=== PATIENT | male | born 1970 | race Caucasian/White ===

== ENCOUNTER 2020-10-15 10:22 | Outpatient (CLI) | payer OTHER, SELFPAY ==
--- NOTE | 2020-10-15 09:45 | DI.RAD_ITS ---
EXAM: XR STANDING ALIGNMENT and XR knee right and left 1 V CLINICAL HISTORY: pre-op. TECHNIQUE: 2D digital imaging was performed. COMPARISON: CR,DX XR KNEE 3V RT from 04/27/2019 CR XR KNEE LT 1V from 10/15/2020 CR XR KNEE LT 1V from 10/15/2020 CR XR KNEE RT 1V from 10/15/2020 FINDINGS: Mild degenerative changes are seen in the hips. In the right knee, marked degenerative changes are present characterized by joint space narrowing and periarticular spurring. The findings are most marked in the medial femoral tibial joint. There is a joint effusion. In the left knee, marked degenerative changes are present. Their care dries by joint space narrowing and periarticular spurring. The findings are most marked in the medial femoral tibial and patellofe moral joints. Orthopedic screws are seen in the distal femur and proximal tibia. There is a small j oint effusion. The ankles are well maintained. No significant leg length discrepancy is noted. IMPRESSION: Marked degenerative changes of the knees bilaterally. DATA REPOSITORY: RADIATION DOSE DELIVERED:
== END 2020-10-15 10:42 ==
PROVIDERS: Visit Provider Physician Assistant Surgical
DX: M17.0 Bilateral primary osteoarthritis of knee (principal)
CPT/HCPCS: 73560; 77073

== ENCOUNTER 2020-11-09 01:27 | Outpatient (CLI) | payer OTHER, SELFPAY ==
[2020-11-09 11:32] LABS: BUN 19 mg/dL (7-18); Calcium 9.4 mg/dL (8.5-10.1); Chloride 103 mmol/L (98-107); Glucose 107 mg/dL (74-106); Potassium 3.8 mmol/L (3.5-5.1); Sodium 139 mmol/L (136-145)
[2020-11-09 11:36] LABS: HCT 45.1 % (40.0-50.0); HGB 15.2 g/dL (13.5-17.5); MCH 29.1 pg (27.0-33.0); MCHC 33.7 % (32.0-36.0); MCV 86.2 fL (80-95); MPV 9.6 fL (8.0-11.0); Platelet Count 316 10^3/uL (130-400); RBC 5.23 10^6/uL (4.36-5.78); RDW 12.8 % (11.8-14.1); RDW-SD 40.4 fL; WBC 9.91 10^3/uL (4.4-10.8)
[2020-11-10 17:09] LABS: COVID-19 RT-PCR UVMMC Result Negative (Negative)
== END 2020-11-09 01:28 | disposition home or self-care (01) ==
LOC: LBO 01:27
PROVIDERS: PCP Nurse Practitioner Family; Visit Provider Student in an Organized Health Care Education/Training Program
DX: M25.562 Pain in left knee (principal); M17.32 Unilateral post-traumatic osteoarthritis, left knee; Z20.828 Contact with and (suspected) exposure to other viral communicable diseases; Z01.818 Encounter for other preprocedural examination; Z01.812 Encounter for preprocedural laboratory examination
CPT/HCPCS: 36415; 80048; 85027; U0003

== ENCOUNTER 2020-11-14 06:05 | Day surgery (SDC) | payer OTHER, SELFPAY ==
[2020-11-14] VITALS (8 sets, daily range): BP systolic 98–133; BP diastolic 39–83; PULSE 58–65; RESP 12–16; TEMP 36–36.8; O2SAT 93–99
[2020-11-14] MEDS: Lactated Ringers 1,000 ML 80 ML IV (06:49)
[2020-11-14] MEDS: Gabapentin 300 MG CAP PO (07:21)
[2020-11-14] MEDS: Acetaminophen 500 MG TAB 1000 MG PO (07:21)
[2020-11-14] MEDS: Celecoxib 200 MG CAP 400 MG PO (07:21)
--- NOTE | 2020-11-14 07:22 | DSE_ITS ---
Documented by User: Guera Rosadoxon 11/14/20 07:24 DS: Diagnosis Discharge Diagnosis (1) Post-traumatic osteoarthritis of left knee: Status: Chronic Discharge Plan Disposition Patient Disposition: HOME Condition: Good Discharge Details Reason For Visit: Left knee DJD Attending Provider: Mikel Garcia Primary Care Provider: Lea Orosco Home Meds and New Rx's Prescriptions: Continued amlodipine 10 mg tablet 10 mg PO DAILY RF: 0 losartan 100 mg tablet 100 mg PO DAILY RF: 0 metoprolol succinate 25 mg tablet extended release 24 hr 50 mg PO DAILY RF: 0 Flovent HFA 110 mcg/actuation HFA aerosol inhaler 1 puff inhalation BID RF: 0 albuterol sulfate [ProAir HFA] 90 mcg/actuation HFA aerosol inhaler 2 puff inhalation Q6H PRNRF: 0 celecoxib 200 mg capsule 200 mg PO BID Qty: 60 RF: 0 acetaminophen 500 mg tablet 1,000 mg PO TID Qty: 90 RF: 0 oxycodone 5 mg tablet 5 mg PO Q4H MDD 30mg PRN (Reason: pain) Qty: 18 RF: 0 gabapentin 300 mg capsule 300 mg PO QHS Qty: 14 RF: 0 aspirin 81 mg tablet,delayed release (DR/EC) 81 mg PO BID Qty: 60 RF: 0 pantoprazole 40 mg tablet,delayed release (DR/EC) 40 mg PO DAILY Qty: 30 RF: 0 Discharge Instructions Additional Instructions: Total Knee Discharge Instructions Activity: The most important activity is to walk. You should try to take short walks a few times a day. It is important that when resting you work on keeping the knee straight. Avoid putting a pillow behind the knee as this will encourage flexion. Work on range of motion exercises as provided by Physical Therapy. - Start outpatient physical therapy within 2 weeks. - You should wear the LETICIA hose on both legs for 2 weeks. You may remove these at night. You may also use any compression sock in place of the LETICIA hose. Dressing: You may remove the Darrin wrap on your leg 2 days after your surgery and put on the LETICIA stocking given to you from the hospital. Keep the surgical dressing (underneath the DARRIN wrap) in place for at least one week. After the first week it may be removed and replaced with light gauze and tape or nothing. The wound and dressing may get wet after 3 days but avoid soaking the dressing or otherwise it will need to be changed. Many people prefer covering the d ressing with cling wrap (saran wrap) to minimize it from getting soaked. If it gets wet, just pat dry. If it starts to peel off then it will need to be changed. Medications: - You should take Tylenol and anti-inflammatory Celebrex as your primary pain control medications. If the Celebrex is too expensive or not covered, please call the office for another alternative (Advil/Ibuprofen or Naproxen/Aleve) - You have been prescribed a stronger pain medication Oxycodone for breakthrough pain, take as needed as prescribed. - You have also been prescribed a stomach acid reduction agent Pantoprozole to help reduce stomach acid and reflux. - You have been prescribed Gabapentin to take at night for restlessness and nerve pain. - You will be taking Aspirin 81mg twice a day for DVT prevention unless instructed otherwise. - If you have constipation you should take Colace or Miralax (which you may purchase [id number]). It takes most people 3-4 days to have a bowel mo vement. Follow-up: 2 weeks If you have any acute concerns or questions, please do not hesitate to contact the office at [phone]. You may contact Dr. Garcia with any questions after hours through the hospital at [phone] or on his cell phone at [phone]. Referrals: Mikel Garcia MD [ [facility] STAFF PHYSICIAN] - Equipment/Supplies: Walker Activity:: Elevate Remove Dressings/Wound Care:: Do Not Remove Shower/Bathe:: 72 hours Diet:: As Tolerated Discharge Orders Discharge Orders: Discharge Order (Routine); Ordered 11/14/20 Ordered By: Mikel Garcia DS: Data Vitals/I&O Vitals and I&O: Vital Signs Temperature 36.5 C 11/14/20 06:26 Pulse 64 11/14/20 06:26 Pulse Rhythm Regular 11/14/20 06:26 Respiratory Rate 16 11/14/20 06:26 Respiratory Depth Normal 11/14/20 06:26 Blood Pressure 133/83 11/14/20 06:26 Pulse Oximetry 95 11/14/20 06:26 Oxygen Delivery Method Room Air 11/14/20 06:26 Oxygen Flow Rate 0 11/14/20 06:26 Pain Level 3 11/14/20 06:26 Intake & Output 11/13/20 11/13/20 11/14/20 11:59 23:59 11:59 Weight 131.542 kg 131.8 kg Other: Comment Voided in toilet. Voiding Methods Toilet [facility] Medical History Acid reflux Asthma Hypertension Migraine Obstructive sleep apnea CPAP SLAP tear of shoulder Surgical History H/O arthroscopic knee surgery Left ACL reconstruction with patellar BTB 1997 lateral release 2000 arthroscopy 2002 History of toe surgery Right great toe tendon repair 1994 Hx of shoulder surgery S/P reconstruction of anterior cruciate ligament Left S/P tonsillectomy Status post arthroscopy of left shoulder Left SLAP tear Status post hernia repair Umbilical hernia [facility] Social History Smoking/Tobacco Use Status: Never Smoking risk assessment performed?: Yes Alcohol Intake: never Drug use: Never Substance use type: does not use Do you feel safe at home: Yes Do you feel safe in your relationship?: Yes Documented by User: Mikel Garcia MD 11/14/20 13:22 Date of service: 11/14/20 Time of Service: 13:21 Discharge Plan Disposition Patient Disposition: HOME Condition: Good Discharge Details Reason For Visit: Left knee DJD Attending Provider: Mikel Garcia Primary Care Provider: Lea Orosco Home Meds and New Rx's Prescriptions: Continued amlodipine 10 mg tablet 10 mg PO DAILY RF: 0 losartan 100 mg tablet 100 mg PO DAILY RF: 0 metoprolol succinate 25 mg tablet extended release 24 hr 50 mg PO DAILY RF: 0 Flovent HFA 110 mcg/actuation HFA aerosol inhaler 1 puff inhalation BID RF: 0 albuterol sulfate [ProAir HFA] 90 mcg/actuation HFA aerosol inhaler 2 puff inhalation Q6H PRNRF: 0 celecoxib 200 mg capsule 200 mg PO BID Qty: 60 RF: 0 acetaminophen 500 mg tablet 1,000 mg PO TID Qty: 90 RF: 0 oxycodone 5 mg tablet 5 mg PO Q4H MDD 30mg PRN (Reason: pain) Qty: 18 RF: 0 gabapentin 300 mg capsule 300 mg PO QHS Qty: 14 RF: 0 aspirin 81 mg tablet,delayed release (DR/EC) 81 mg PO BID Qty: 60 RF: 0 pantoprazole 40 mg tablet,delayed release (DR/EC) 40 mg PO DAILY Qty: 30 RF: 0 Discharge Instructions Additional Instructions: Total Knee Discharge Instructions Activity: The most important activity is to walk. You should try to take short walks a few times a day. It is important that when resting you work on keeping the knee straight. Avoid putting a pillow behind the knee as this will encourage flexion. Work on range of motion exercises as provided by Physical Therapy. - Start outpatient physical therapy within 2 weeks. - You should wear the LETICIA hose on both legs for 2 weeks. You may remove these at night. You may also use any compression sock in place of the LETICIA hose. Dressing: You may remove the Darrin wrap on your leg 2 days after your surgery and put on the LETICIA stocking given to you from the hospital. Keep the surgical dressing (underneath the DARRIN wrap) in place for at least one week. After the first week it may be removed and replaced with light gauze and tape or nothing. The wound and dressing may get wet after 3 days but avoid soaking the dressing or otherwise it will need to be changed. Many people prefer covering the dressing with cling wrap (saran wrap) to minimize it from getting soaked. If it gets wet, just pat dry. If it starts to peel off then it will need to be changed. Medications: - You should take Tylenol and anti-inflammatory Celebrex as your primary pain control medications. If the Celebrex is too expensive or not covered, please call the office for another alternative (Advil/Ibuprofen or Naproxen/Aleve) - You have been prescribed a stronger pain medication Oxycodone for breakthrough pain, take as needed as prescribed. - You have also been prescribed a stomach acid reduction agent Pantoprozole to help reduce stomach acid and reflux. - You have been prescribed Gabapentin to take at night for restlessness and nerve pain. - You will be taking Aspirin 81mg twice a day for DVT prevention unless instructed otherwise. - If you have constipation you should take Colace or Miralax (which you may purchase [id number]). It takes most people 3-4 days to have a bowel movement. Follow-up: 2 weeks If you have any acute concerns or questions, please do not hesitate to contact the office at [phone]. You may contact Dr. Garcia with any questions after hours through the hospital at [phone] or on his cell phone at [phone]. Referrals: Mikel Garcia MD [ [facility] STAFF PHYSICIAN] - Equipment/Supplies: Walker Activity:: Elevate Remove Dressings/Wound Care:: Do Not Remove Shower/Bathe:: 72 hours Diet:: As Tolerated Discharge Orders Discharge Orders: Discharge Order (Routine); Ordered 11/14/20 Ordered By: Mikel Garcia DS: Summary Time Spent with Patient providing and/or coordinating discharge services: Less than 30 minutes Status at Discharge Functional status at discharge: uses cane/walker Overall status at discharge: patient is progressing back to baseline Mental Status: mental status grossly normal Speech and Movement: speech and movement normal Mood: congruent mood Affect: normal affect Exam Psych Mental Status: mental status grossly normal Speech and Movement: speech and movement normal Mood: congruent mood Affect: normal affect [facility] Medical History Acid reflux Asthma Hypertension Migraine Obstructive sleep apnea CPAP SLAP tear of shoulder Surgical History H/O arthroscopic knee surgery Left ACL reconstruction with patellar BTB 1998 lateral release 2001 arthroscopy 2003 History of toe surgery Right great toe tendon repair 1994 Hx of shoulder surgery S/P reconstruction of anterior cruciate ligament Left S/P tonsillectomy Status post arthroscopy of left shoulder Left SLAP tear Status post hernia repair Umbilical hernia Tear of UCL of left elbow [facility] ~2002 Tear of UCL of right elbow [facility] surgery November 1997 Social History Smoking/Tobacco Use Status: Never Smoking risk assessment performed?: Yes Alcohol Intake: never Drug use: Never Substance use type: does not use Do you feel safe at home: Yes Do you feel safe in your relationship?: Yes
[2020-11-14] MEDS: ceFAZolin 3,000 MG in Normal Saline 100 ML 200 MG IVPB (07:58)
[2020-11-14] MEDS: Ketorolac 30 MG/ML VIAL (08:33)
[2020-11-14] MEDS: Bupivacaine 0.25% Pres-Free 30 ML VIAL (08:33)
[2020-11-14] MEDS: Normal Saline 20 ML VIAL (08:33)
--- NOTE | 2020-11-14 10:42 | ROE_ITS ---
Date of service: 11/14/20 Time of Service: 10:02 Operative Note Operative Note DATE OF PROCEDURE: 11/14/20 PRE-OP DIAGNOSIS: Left Knee Posttraumatic Osteoarthritis POST-OP DIAGNOSIS: same PROCEDURE: Left Total Knee Replacement SURGEON: Mikel Garcia PROVIDER ENROLLMENT SPECIALIST: Guera Humphreys ANESTHESIA TYPE: Spinal Refer to Anesthesia Record ESTIMATED BLOOD LOSS: 300 PATHOLOGY: none sent TOURNIQUET TIME: 0 COMPLICATIONS: None Patient was transported to: PACU Patient's condition: stable Implants: 1. Depuy Attune Cementless Cruciate Retaining Femoral Component, Size 7 2. Depuy Attune Cementless Rotating Platform Tibial Component, Size 6 3. Depuy Attune 7x8mm CR/RP Poly 4. Depuy Attune Patellar Component, Size 38 Indications: I have seen Ravin in clinic for symptoms of LEFT knee arthritis, confirmed with radiographic findings. Ravin has exhausted nonoperative methods and was having significant limitations in daily function and desired better function and less pain. I discussed the technical details of a knee replacement. I explained the risks of the procedure to include, but not limited to, bleeding, infection, pain, stiffness, fracture, damage to nerves and vessels, damage to muscles and tendons, loosening, need for repeat procedure, blood clot and cardiopulmonary demise. Despite these risks, Ravin elected to proceed. Findings: There was significant signs of arthritis throughout the knee involving all 3 compartments. Procedure Description: Ravin was greeted in the preoperative holding area where the correct side was identified and marked. The consent was reviewed with the patient and signed. The history and physical was updated. All questions were answered. Preoperative medications were administered: Acetaminophen 1000mg, Celebrex 400mg, and Gabapentin 300mg. An adductor canal block was then administered by the anesthesia team in the PACU. Ravin was taken back to the operating room. A spinal anesthestic was then administered. The patient was placed into the supine position on the operating room table. A nonsterile tourniquet was placed high onto the leg. Posts were placed for positioning during the procedure. All bony prominences were well padded. Prophylactic antibiotics in the form of Cefazolin were administered. 1g of Tranxemic Acid was given intravenously within 30 minutes of incision. The left leg was then prepped with Chloraprep and draped in a standard fashion with impervious stockinette. A second prep with Chloraprep was performed prior to application of Iodine impregnated skin protection. A timeout to confirm correct identity, side and site, procedure, allergies, anesthesia, and medical concerns was performed. With the knee in some flexion, a midline incision was made overlying the knee. Full thickness skin flaps were raised once the extensor mechanism was encountered. These were raised medially and laterally. Any bleeding was controlled with electrocautery. Once the extensor mechanism was fully exposed, a medial parapatellar arthrotomy was performed in a flexed position. All bleeding from the arthrotomy and the geniculate arteries was coagulated. A medial subperiosteal peel was performed with electrocautery to the midcoronal plane. The fat pad was removed while keeping the patellar tendon protected. The anterior distal femur synovium was removed for later visualization. The ACL and PCL were resected and the anterior horn of the lateral meniscus was transected. The knee was then flexed with the patella everted. Large osteophytes from the tibia were removed. Large osteo phytes from the femur were removed. There was significant scarring of the fat pad and the patella tendon. A single starting pin was then placed 1cm anterior to the PCL insertion and the notch in the direction of the femoral head. The OrthoAlign device was applied over the pin. It was oriented to be in line with the epicondylar axis and the trochlear groove. It was then pinned into place. The navigation computer was then turned on and calibrated. The distal femur cut was set at 0 degrees varus/valgus and 2.5 degrees flexion. The distal femur cutting guide then was positioned for a 9mm cut. The distal femur was cut with an oscillating saw while protecting the soft tissues. The tibia was then addressed. The OrthoAlign device was placed over the tibial tubercle and medial tibia and secured into position. Once again, OrthoAlign was calibrated and then set for a 0.5 degree varus cut and 5 degrees of posterior slope. With this locked into position, the cut thickness stylus was used to assess cut thickness. The medial side, most involved side, was set for a 4mm cut which corresponded to 9mm laterally. This was then held in position and pinned into place with 2 additional pins and a cross pin for stability. The medial and lateral collateral ligaments were protected and the cut was performed. With this completed, it was assessed and noted to be of appropriate dimensions. The guide and OrthoAlign was removed. A spacer block was inserted and the knee was brought into extension. The 7mm spacer block provided full extension, without hyperextension and with stability of both the medial and lateral collateral ligaments was assessed. The pins from the femur and the tibia were then removed. The distal femur was then sized. The anterior stylus was placed onto the lateral ridge of the anterior femur. This indicated a size 7 femur. The external rotation of the guide was adjusted to 5 degrees to match the epicondylar axis, perpendicular to [place]?s line. The 4-in-1 cutting guide was the placed. The posterior medial femur cut was evaluated and appeared of good thickness. The spacer block was inserted underneath the cutting guide and stability was confirmed in 90 degrees of flexion. An tiffanie wing was used to confirm appropriate position of the anterior cut to avoid notching. This cutting guide was ensured to be flush on the cut surface and then pinned into place with headed pins. While protecting the soft tissues, quad tendon, and collateral ligaments, the anterior and posterior cuts were performed with a saw. The central two pins were removed and the posterior and anterior chamfers were cut next. The notch-cutting guide was placed. This was pinned to lateralize the femoral component as much as possible while keeping it flush on the cut surface. This was then pinned into position. A reciprocating saw was used to make the notch cut. A rasp smoothed the cut surfaces. The medial and lateral menisci were removed. A trial femoral component was then inserted, impacted down to the cut surfaces, and the lug holes were drilled. A provisional trial tibial component was placed and the knee was brought through range of motion. The polyethylene was trialed until there was good flexion and extension with excellent stability to the medial and lateral collaterals. There was some slight increase in varus stress at 90 degrees by about 2mm. The patella was tracking without thumbs. A size 8mm polyethylene component provided the best range of motion and stability with less than 2mm gapping with medial and lateral stress and full extension without significant hyperextension. The tibial cut surface was fully exposed. The tibia was then sized as a 6. The tibia had been previously marked during trialing to correspond to the center of the tibial component to help with rotation. The trial was aligned to this juana, approximately rotated to the medial 1/3rd of the tibial tubercle. The trial was pinned into place. The tibia was prepared with a reamer and a keel punch and lug holes. The knee was then brought into extension and the patella was measured as 27mm. Using the patellar clamp and cut guide, this was resected to a flat surface with at least 13mm of thickness remaining. The size 38 patella fit the best. This was oriented and then clamped into position. The lugs were drilled. The trial components were removed. The final components were opened on the back table. The periosteal and capsular tissues, especially posteriorly, around the knee were then systematically injected with a periarticular cocktail consisting of 50cc 0.25% Marcaine, 30mg Ketorolac, 20cc of Exparal and 50cc of injectable saline. The knee was thoroughly irrigated with a pulse lavage and dried. Irrisept was also used to irrigate the tissues. On the back table, with the implants opened, the cement was mixed. One batches of high viscosity cement were prepared with vacuum assistance. After the cement was ready a small amount was placed on the cut surface of the patella and the patellar button was clamped into position and held. During this process attention was turned to the gutters of the knee and for all interfaces for any excess cement. While the cement was hardening, the cementless knee components were placed. Starting with the tibial component, the tibia was subluxed anteriorly and the lug holes of the component were lined up. The tibia was then impacted with an impactor and mallet until the tibial component was in contact with the tibia. The final polyethylene component was inserted. Then, the fe moral component was inserted. The lug holes were aligned and the component was impacted into position. The knee was irrigated with Irrisept chlorhexadine solution. This was allowed to sit in the knee for 3 minutes. After the cement had finally cured, approximately 15min, the clamp was removed from the patella and the knee was taken through range of motion. The patella was tracking with a no-thumbs technique. The capsule was then reapproximated with a No. 1 Vicryl at multiple locations. The capsule was finally closed with a No. 2 Stratafix, barbed suture. The second dosing of 1g TXA was started. Deep tissues were then reapproximated with 0 Vicryl and 2-0 Monocryl. The skin was closed with a running 3-0 Monocryl in a subcuticular fashion. This was reinforced with skin glue. A Mepilex silver dressing was applied along with a [id number] TALIA wrap. A CryoCuff was applied. Ravin was transferred to the hospital bed without difficulty an suffering no apparent complication. Ravin has a good prognosis. Physical therapy will start today and without restrictions, weight-bearing as tolerated. Aspirin 81mg BID will be used for DVT prophylaxis.
[2020-11-14] MEDS: oxyCODONE 5 MG TAB PO (11:12)
--- NOTE | 2020-11-14 13:59 | PT.INIE ---
PT Notes Visit Reasons: Left knee DJD Date: 11/14/2020 Referring: Mikel Garcia MD MD diagnosis: Status post left TKA PT diagnosis: Status post left TKA Subjective: Alert and oriented with complaints of nausea without vomiting when climbing stairs. This resolved after a few moments of deep breathing. No complaints of pain offered. History of present illness: A 50-year-old male status post ACL reconstruction in 1997 and lateral retinacular release in early 1999 who developed osteoarthritis of his left knee and underwent a left TKA earlier today. Pain ratin/10 on a VAS Pain location: Incisional region Current level of function: Requires assistance with his left lower extremity when getting in and out of bed. With practice, he is able to use his right lower extremity for assistance. 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 No abnormal pain behavior noted Gait: Initially he ambulated with a walker, weightbearing as tolerated in left lower extremity. We switched to crutches, and he walked with a three-point gait weightbearing as tolerated on the left lower extremity. His gait was stable. He then ascended and descended at least 10 steps with proper technique after instructed. He did develop some nausea midway up the stairway, but with deep breathing exercises this eventually resolved. No complaints of lightheadedness or vertigo. His post activity pulse was 64 bpm and regular Articular: He sits comfortably with his knee flexed at 90 degrees. He has full extension. Strength: He is unable to perform a straight leg raise on the left due to discomfort throughout the incisional area. I instructed him in a home program consisting of quad gluteal sets and ankle pumping. He was issued a packet describing his exercises, etc. Neuro: Sensations in tact to light touch throughout the left foot and he has full motor control. Treatment: 13424 Total treatment time: 45 minutes Direct treatment time: 45 minutes Assessment: Patient is a 50-year-old male referred for PT services diagnosis of status post left TKA. Patient presents with clinical signs and symptoms consistent with this diagnosis, as demonstrated by the following impairment level findings of weakness of the left lower extremity particular his quads, gait abnormality, etc. These impairments contributing the following functional mutations listed above. Patient is assessed as a low 72142 complexity, based on the following: History: See comorbidities and social history Examination: See above for function limitations and impairments Presentation: Stable Decision making: Low complexity based on his clinical findings Patient requires skilled PT intervention to remediate the above functional rotations to return to full functional mobility Prognosis: Good Short-term goals: 6 weeks Increase range of motion of the left knee from 0 to 120 degrees, increase strength entire left lower extremity with emphasis on the glutes and the quads at +4/5, and ambulation without assistive device with normal gait mechanics. Long-term goals: 12 weeks Return to full functional mobility Plan: Today consisted of evaluation, gait training including stairs, as well as issuing him a written illustrated home exercise program instructing in hourly quad gluteal sets and ankle pumping. Continue ice knee frequently throughout the day. He starts outpatient physical therapy in his hometown in 2 weeks. DC from PT Disclaimer: This note was created using [employer] voice recognition software. It was reviewed for major content. However, there may be multiple small discrepancies and errors due to the voice recognition aspects of the software.
== END 2020-11-14 14:40 | disposition home or self-care (01) ==
PROVIDERS: PCP Nurse Practitioner Family; Visit Provider Student in an Organized Health Care Education/Training Program
PROC: (CPT 27447; principal; 2020-11-14 07:45)
DX: M17.32 Unilateral post-traumatic osteoarthritis, left knee (principal); M25.562 Pain in left knee; Z96.652 Presence of left artificial knee joint; X58.XXXS Exposure to other specified factors, sequela; G47.33 Obstructive sleep apnea (adult) (pediatric); G89.18 Other acute postprocedural pain
CPT/HCPCS: 27447; C1776; 76942; 97161; NC; J0690; J1100; J1885; J2001; J2250; J2405

== ENCOUNTER 2020-11-29 11:28 | Outpatient (CLI) | payer OTHER, SELFPAY ==
--- NOTE | 2020-11-29 11:25 | DI.RAD_ITS ---
EXAM: XR STANDING ALIGNMENT and XR knee LT 1 V CLINICAL HISTORY: 1ST POST OP L TKA. TECHNIQUE: 2D digital imaging was performed. COMPARISON: CR XR KNEE LT 1V from 10/15/2020 CR XR STANDING ALIGNMENT from 10/15/2020 FINDINGS: Since the prior examination the patient has undergone a left total knee replacement. There is modera te soft tissue swelling around the knee. The hips are well maintained. Marked degenerative changes are seen in the right knee characterized by joint space narrowing and periarticular spurring. The fi ndings are most marked in the medial femoral tibial joint space. The ankles are well maintained. No significant leg length discrepancy is noted. IMPRESSION: Status post left TKR. DATA REPOSITORY: RADIATION DOSE DELIVERED:
== END 2020-11-29 11:29 | disposition home or self-care (01) ==
LOC: DIORS 11:29
PROVIDERS: PCP Nurse Practitioner Family; Referring Provider Nurse Practitioner Family; Visit Provider Physician Assistant
DX: Z96.652 Presence of left artificial knee joint (principal)
CPT/HCPCS: 73560; 77073

== ENCOUNTER 2020-12-21 02:27 | Outpatient (CLI) | payer OTHER, SELFPAY ==
[2020-12-21 12:02] LABS: Source Nasal/Nares
[2020-12-21 14:35] LABS: COVID-19 PCR Negative (Negative)
== END 2020-12-21 02:28 | disposition home or self-care (01) ==
LOC: LBO 02:27
PROVIDERS: PCP Nurse Practitioner Family; Visit Provider Student in an Organized Health Care Education/Training Program
DX: Z20.828 Contact with and (suspected) exposure to other viral communicable diseases (principal); Z01.818 Encounter for other preprocedural examination
CPT/HCPCS: 87635

== ENCOUNTER 2020-12-26 08:07 | Day surgery (SDC) | payer OTHER, SELFPAY ==
--- NOTE | 2020-12-25 13:36 | PDOC.CMPRO ---
Care Management Progress Note SUDHIR received call from QUAN Mei at Ortho office reporting that Ravin would be having day surgery tomorrow, and anticipates VNA supports will be required. CM faxed demographics and H&P to [facility] to notify of anticipated orders. F2F orders will be faxed to [facility] tomorrow post surgically once patient is medically cleared for discharge.
[2020-12-26] VITALS (10 sets, daily range): BP systolic 98–143; BP diastolic 54–86; PULSE 56–69; RESP 11–20; TEMP 36.2–36.7; O2SAT 94–99
--- NOTE | 2020-12-26 07:27 | W.PM.DS.N ---
Documented by User: Guera Rosadoxon 12/26/20 07:32 DS: Diagnosis Discharge Diagnosis (1) Primary localized osteoarthritis of right knee: Status: Chronic Discharge Plan Disposition Patient Disposition: HOME Condition: Good Discharge Details Reason For Visit: Left knee DJD Attending Provider: Mikel Garcia Primary Care Provider: Lea Orosco Home Meds and New Rx's Prescriptions: Continued amlodipine 10 mg tablet 10 mg PO DAILY RF: 0 losartan 100 mg tablet 100 mg PO DAILY RF: 0 metoprolol succinate 25 mg tablet extended release 24 hr 50 mg PO HS RF: 0 Flovent HFA 110 mcg/actuation HFA aerosol inhaler 1 puff inhalation BID PRNRF: 0 albuterol sulfate [ProAir HFA] 90 mcg/actuation HFA aerosol inhaler 2 puff inhalation Q6H PRNRF: 0 acetaminophen 500 mg tablet 1,000 mg PO TID Qty: 90 RF: 0 aspirin 81 mg tablet,delayed release (DR/EC) 81 mg PO BID Qty: 60 RF: 0 celecoxib 200 mg capsule 200 mg PO BID Qty: 60 RF: 0 oxycodone 10 mg tablet 10 mg PO Q4H MDD 60 mg PRN (Reason: pain) 5 Days Qty: 18 RF: 0 gabapentin 300 mg capsule 300 mg PO QHS Qty: 30 RF: 0 pantoprazole 40 mg tablet,delayed release (DR/EC) 40 mg PO DAILY Qty: 30 RF: 0 Discharge Instructions Additional Instructions: Total Knee Discharge Instructions Activity: The most important activity is to walk. You should try to take short walks a few times a day. It is important that when resting you work on keeping the knee straight. Avoid putting a pillow behind the knee as this will encourage flexion. Work on range of motion exercises as provided by Physical Therapy. - Start outpatient physical therapy within 2 weeks. - You should wear the LETICIA hose on both legs for 2 weeks. You may remove these at night. You may also use any compression sock in place of the LETICIA hose. Dressing: You may remove the Darrin wrap on your leg 2 days after your surgery and put on the LETICIA stocking given to you from the hospital. Keep the surgical dressing (underneath the DARRIN wrap) in place for at least one week. After the first week it may be removed and replaced with light gauze and tape or nothing. The wound and dressing may get wet after 3 days but avoid soaking the dressing or otherwise it will need to be changed. Many people prefer covering the dressing with cling wrap (saran wrap) to minimize it from getting soaked. If it gets wet, just pat dry. If it starts to peel off then it will need to be changed. Medications: - Your prescription medications had been submitted to your pharmacy yesterday. - You should take Tylenol and anti-inflammatory Celebrex as your primary pain control medications. If the Celebrex is too expensive or not covered, please call the office for another alternative (Advil/Ibuprofen or Naproxen/Aleve) - You have been prescribed a stronger pain medication Oxycodone for breakthrough pain, take as needed as prescribed. - You have also been prescribed a stomach acid reduction agent Pantoprozole to help reduce stomach acid and reflux. - You have been prescribed Gabapentin to take at night for restlessness and nerve pain. - You will be taking Aspirin 81mg twice a day for DVT prevention unless instructed otherwise. - If you have constipation you should take Colace or Miralax (both [id number]). It takes most people 3-4 days to have a bowel movement. Follow-up: 2 weeks If you have any acute concerns or questions, please do not hesitate to contact the office at [phone]. You may contact Dr. Garcia with any questions after hours through the hospital at [phone] or on his cell phone at [phone]. 1. Encounter Date and Reason I certify that RAVIN BRANCH was seen by Mikel Garcia MD on 12/26/20 and that I had a [id number] encounter with this patient that meets the physician face to face encounter requirements. 2. Clinical Findings Supporting Skilled Need and Homebound Status I certify that home health services are medically necessary, include either intermittent assisted and/or physical/speech therapy, and that this patient is homebound in that absences from the home require considerable and taxing effort and are infrequent or of short duration, or are attributable to the need to receive medical care. [X] (a) Attached documentation from encounter provides clinical findings supporting skilled need and homebound status (including what assistance patient requires to leave the home). The encounter with the patient was in whole, or in part, for the following medical condition, which is the primary reason for home health care: Left knee DJD Senior Living: Physical Therapy:Ravin would benefit from physical therapy to address his weakness, stiffness, and pain following right knee replacement. He recently had his left knee replaced 6 weeks prior. He should conitnue to work on ROM and strengthening of the left knee as well as ROM and ambulatory function of the right knee. He has no restrictions. WBAT. Speech Therapy: Homebound: Ravin is unable to leave his home unassisted due to surgery of the right knee resulting in weakness and stiffness. 3. Certification and Authentication I certify that I composed the above information based on my clinical judgement relating to this patient's medical condition and, if applicable, clinical findings communicated to me by the NPP or inpatient physician who performed the Home Health Referral. All further orders will be obtained through Dr. Garcia Referrals: Mikel Garcia MD [ [facility] STAFF PHYSICIAN] - Equipment/Supplies: Walker Activity:: Elevate Remove Dressings/Wound Care:: Do Not Remove Shower/Bathe:: 72 hours Diet:: As Tolerated Discharge Orders Discharge Orders: Discharge Order (Routine); Ordered 12/26/20 Ordered By: Mikel Garcia [facility] Medical History (Updated 12/26/20 @ 09:05 by Kristi Alvarez RN) Acid reflux Asthma History of postoperative nausea and vomiting Hypertension Migraine Obstructive sleep apnea CPAP SLAP tear of shoulder Surgical History H/O arthroscopic knee surgery Left ACL reconstruction with patellar BTB 1997 lateral release 2000 arthroscopy 2002 History of toe surgery Right great toe tendon repair 1994 History of total left knee replacement Hx of shoulder surgery S/P reconstruction of anterior cruciate ligament Left S/P tonsillectomy Status post arthroscopy of left shoulder Left SLAP tear Status post hernia repair Umbilical hernia Tear of UCL of left elbow [facility] ~2003 Tear of UCL of right elbow [facility] surgery November 1997 Social History Smoking/Tobacco Use Status: Never Smoking risk assessment performed?: Yes Alcohol Intake: never Drug use: Never Substance use type: does not use Do you feel safe at home: Yes Do you feel safe in your relationship?: Yes Documented by User: Mikel Garcia MD 12/26/20 13:24 Date of service: 12/26/20 Time of Service: 13:19 Discharge Plan Disposition Patient Disposition: HOME Condition: Good Discharge Details Reason For Visit: Left knee DJD Attending Provider: Mikel Garcia Primary Care Provider: Lea Orosco Home Meds and New Rx's Prescriptions: Continued amlodipine 10 mg tablet 10 mg PO DAILY RF: 0 losartan 100 mg tablet 100 mg PO DAILY RF: 0 metoprolol succinate 25 mg tablet extended release 24 hr 50 mg PO HS RF: 0 Flovent HFA 110 mcg/actuation HFA aerosol inhaler 1 puff inhalation BID PRNRF: 0 albuterol sulfate [ProAir HFA] 90 mcg/actuation HFA aerosol inhaler 2 puff inhalation Q6H PRNRF: 0 acetaminophen 500 mg tablet 1,000 mg PO TID Qty: 90 RF: 0 aspirin 81 mg tablet,delayed release (DR/EC) 81 mg PO BID Qty: 60 RF: 0 celecoxib 200 mg capsule 200 mg PO BID Qty: 60 RF: 0 oxycodone 10 mg tablet 10 mg PO Q4H MDD 60 mg PRN (Reason: pain) 5 Days Qty: 18 RF: 0 gabapentin 300 mg capsule 300 mg PO QHS Qty: 30 RF: 0 pantoprazole 40 mg tablet,delayed release (DR/EC) 40 mg PO DAILY Qty: 30 RF: 0 Discharge Instructions Additional Instructions: Total Knee Discharge Instructions Activity: The most important activity is to walk. You should try to take short walks a few times a day. It is important that when resting you work on keeping the knee straight. Avoid putting a pillow behind the knee as this will encourage flexion. Work on range of motion exercises as provided by Physical Therapy. - Start outpatient physical therapy within 2 weeks. - You should wear the LETICIA hose on both legs for 2 weeks. You may remove these at night. You may also use any compression sock in place of the LETICIA hose. Dressing: You may remove the Darrin wrap on your leg 2 days after your surgery and put on the LETICIA stocking given to you from the hospital. Keep the surgical dressing (underneath the DARRIN wrap) in place for at least one week. After the first week it may be removed and replaced with light gauze and tape or nothing. The wound and dressing may get wet after 3 days but avoid soaking the dressing or otherwise it will need to be changed. Many people prefer covering the dressing with cling wrap (saran wrap) to minimize it from getting soaked. If it gets wet, just pat dry. If it starts to peel off then it will need to be changed. Medications: - Your prescription medications had been submitted to your pharmacy yesterday. - You should take Tylenol and anti-inflammatory Celebrex as your primary pain control medications. If the Celebrex is too expensive or not covered, please call the office for another alternative (Advil/Ibuprofen or Naproxen/Aleve) - You have been prescribed a stronger pain medication Oxycodone for breakthrough pain, take as needed as prescribed. - You have also been prescribed a stomach acid reduction agent Pantoprozole to help reduce stomach acid and reflux. - You have been prescribed Gabapentin to take at night for restlessness and nerve pain. - You will be taking Aspirin 81mg twice a day for DVT prevention unless instructed otherwise. - If you have constipation you should take Colace or Miralax (both [id number]). It takes most people 3-4 days to have a bowel movement. Follow-up: 2 weeks If you have any acute concerns or questions, please do not hesitate to contact the office at [phone]. You may contact Dr. Garcia with any questions after hours through the hospital at [phone] or on his cell phone at [phone]. 1. Encounter Date and Reason I certify that RAVIN BRANCH was seen by Mikel Garcia MD on 12/26/20 and that I had a [id number] encounter with this patient that meets the physician face to face encounter requirements. 2. Clinical Findings Supporting Skilled Need and Homebound Status I certify that home health services are medically necessary, include either intermittent assisted and/or physical/speech therapy, and that this patient is homebound in that absences from the home require considerable and taxing effort and are infrequent or of short duration, or are attributable to the need to receive medical care. [X] (a) Attached documentation from encounter provides clinical findings supporting skilled need and homebound status (including what assistance patient requires to leave the home). The encounter with the patient was in whole, or in part, for the following medical condition, which is the primary reason for home health care: Left knee DJD Senior Living: Physical Therapy:Ravin would benefit from physical therapy to address his weakness, stiffness, and pain following right knee replacement. He recently had his left knee replaced 6 weeks prior. He should conitnue to work on ROM and strengthening of the left knee as well as ROM and ambulatory function of the right knee. He has no restrictions. WBAT. Speech Therapy: Homebound: Ravin is unable to leave his home unassisted due to surgery of the right knee resulting in weakness and stiffness. 3. Certification and Authentication I certify that I composed the above information based on my clinical judgement relating to this patient's medical condition and, if applicable, clinical findings communicated to me by the NPP or inpatient physician who performed the Home Health Referral. All further orders will be obtained through Dr. Garcia Referrals: Mikel Garcia MD [ [facility] STAFF PHYSICIAN] - Equipment/Supplies: Walker Activity:: Elevate Remove Dressings/Wound Care:: Do Not Remove Shower/Bathe:: 72 hours Diet:: As Tolerated Discharge Orders Discharge Orders: Discharge Order (Routine); Ordered 12/26/20 Ordered By: Mikel Garcia DS: Summary Time Spent with Patient providing and/or coordinating discharge services: Less than 30 minutes Status at Discharge Functional status at discharge: uses cane/walker Overall status at discharge: patient is progressing back to baseline Mental Status: mental status grossly normal Speech and Movement: speech and movement normal Mood: congruent mood Affect: normal affect Exam Psych Mental Status: mental status grossly normal Speech and Movement: speech and movement normal Mood: congruent mood Affect: normal affect [facility] Medical History (Updated 12/26/20 @ 09:05 by Kristi Alvarez RN) Acid reflux Asthma History of postoperative nausea and vomiting Hypertension Migraine Obstructive sleep apnea CPAP SLAP tear of shoulder Surgical History H/O arthroscopic knee surgery Left ACL reconstruction with patellar BTB 1998 lateral release 2001 arthroscopy 2003 History of toe surgery Right great toe tendon repair 1995 History of total left knee replacement Hx of shoulder surgery S/P reconstruction of anterior cruciate ligament Left S/P tonsillectomy Status post arthroscopy of left shoulder Left SLAP tear Status post hernia repair Umbilical hernia Tear of UCL of left elbow [facility] surgery ~2002 [facility] Social History Smoking/Tobacco Use Status: Never Smoking risk assessment performed?: Yes Alcohol Intake: never Drug use: Never Substance use type: does not use Do you feel safe at home: Yes Do you feel safe in your relationship?: Yes
[2020-12-26] MEDS: Celecoxib 200 MG CAP 400 MG PO (08:47)
[2020-12-26] MEDS: Acetaminophen 500 MG TAB 1000 MG PO (08:47)
[2020-12-26] MEDS: Gabapentin 300 MG CAP PO (08:47)
[2020-12-26] MEDS: Lactated Ringers 1,000 ML 80 ML IV (08:50)
[2020-12-26] MEDS: ceFAZolin 3,000 MG in Normal Saline 100 ML 200 MG IVPB (10:29)
[2020-12-26] MEDS: Bupivacaine 0.25% Pres-Free 30 ML VIAL (11:02)
[2020-12-26] MEDS: Ketorolac 30 MG/ML VIAL (11:02)
[2020-12-26] MEDS: Normal Saline 20 ML VIAL (11:03)
--- NOTE | 2020-12-26 12:23 | W.PM.OP ---
Date of service: 12/26/20 Time of Service: 12:23 Operative Note Operative Note DATE OF PROCEDURE: 12/26/20 PRE-OP DIAGNOSIS: Right Knee Osteoarthritis POST-OP DIAGNOSIS: same PROCEDURE: Right Total Knee Replacement SURGEON: Mikel Garcia SILK SCREEN PRINTER MACHINE: Guera Humphreys ANESTHESIA TYPE: Spinal Refer to Anesthesia Record ESTIMATED BLOOD LOSS: 200 PATHOLOGY: none sent TOURNIQUET TIME: 0 COMPLICATIONS: None Patient was transported to: PACU Patient's condition: stable Implants: 1. Depuy Attune Cementless Cruciate Retaining Femoral Component, Size 7 2. Depuy Attune Cementless Rotating Platform Tibial Component, Size 6 3. Depuy Attune 7x7 CR/RP Poly 4. Depuy Attune Patellar Component, Size 35 Indications: I have seen Ravin in clinic for symptoms of knee arthritis, confirmed with radiographic findings. Ravin has exhausted nonoperative methods and was having significant limitations in daily function and desired better function and less pain. He has had successful replacement of the left knee and desires the same for the right. I discussed the technical details of a knee replacement. I explained the risks of the procedure to include, but not limited to, bleeding, infection, pain, stiffness, fracture, damage to nerves and vessels, damage to muscles and tendons, loosening, need for repeat procedure, blood clot and cardiopulmonary demise. Despite these risks, Ravin elected to proceed. Findings: There was significant signs of arthritis throughout the knee. Procedure Description: Ravin was greeted in the preoperative holding area where the correct side was identified and marked. The consent was reviewed with the patient and signed. The history and physical was updated. All questions were answered. Preoperative medications were administered: Acetaminophen 1000mg, Celebrex 400mg, and Gabapentin 300mg. An adductor canal block was then administered by the anesthesia team in the PACU. Ravin was taken back to the operating room. A spinal anesthestic was then administered. The patient was placed into the supine position on the operating room table. A nonsterile tourniquet was placed high onto the leg but only used for cementing. Posts were placed for positioning during the procedure. All bony prominences were well padded. Prophylactic antibiotics in the form of Cefazolin were administered. 1g of Tranxemic Acid was given intravenously within 30 minutes of incision. The right leg was then prepped with Chloraprep and draped in a standard fashion with impervious stockinette. A second prep with Chloraprep was performed prior to application of Iodine impregnated skin protection. A timeout to confirm correct identity, side and site, procedure, allergies, anesthesia, and medical concerns was performed. With the knee in some flexion, a midline incision was made overlying the knee. Full thickness skin flaps were raised once the extensor mechanism was encountered. These were raised medially and laterally. Any bleeding was controlled with electrocautery. Once the extensor mechanism was fully exposed, a medial parapatellar arthrotomy was performed in a flexed position. All bleeding from the arthrotomy and the geniculate arteries was coagulated. A medial subperiosteal peel was performed with electrocautery to the midcoronal plane. The fat pad was removed while keeping the patellar tendon protected. The anterior distal femur synovium was removed for later visualization. The ACL and PCL were resected and the anterior horn of the lateral meniscus was transected. The knee was then flexed with the patella everted. Large osteophytes from the tibia were removed. Large osteophytes from the femur were removed. Using a step drill, and based on preoperative templating, the femoral canal was entered. This was done with a step drill without any difficulty. The intramedullary distal femoral cut guide was inserted, set to a 5 degree valgus cut and 9mm cut thickness. The distal femoral cut guide was then held in position and pinned. With the soft tissues protected, the distal cut was performed. This was passed over a few times to ensure a planar cut. I then turned attention to the tibia. The extramedullary guide was placed onto the leg. The distal aspect was slid medial to adjust for position of center of ankle and stay in line with shaft of the tibia. Approximately 3-5 degrees of posterior slope was kept in the proximal cutting guide. The center of the guide was aligned with the PCL. The stylus was used to assess cut thickness. The medial side, most involved side, was set for a 3mm cut. This was then held in position and pinned into place with 2 additional pins and a cross pin for stability. The medial and lateral collateral ligaments were protected and the cut was performed. With this completed, it was assessed and noted to be of appropriate dimensions. The guide was removed. A spacer block was inserted and the knee was brought into extension. The 6mm spacer block provided full extension, without hyperextension and with stability of both the medial and lateral collateral ligaments was assessed. The pins from the femur and the tibia were then removed. The distal femur was then sized. The anterior stylus was placed onto the lateral ridge of the anterior femur. This indicated a size 7 femur. The external rotation of the guide was adjusted to 3 degrees to match the epicondylar axis, perpendicular to Magdy?s line. The 4-in-1 cutting guide was the placed. The posterior medial femur cut was evaluated and appeared of good thickness. The spacer block was inserted underneath the cutting guide and stability was confirmed in 90 degrees of flexion. An tiffanie wing was used to confirm appropriate position of the anterior cut to avoid notching. This cutting guide was ensured to be flush on the cut surface and then pinned into place with headed pins. While protecting the soft tissues, quad tendon, and collateral ligaments, the anterior and posterior cuts were performed with a saw. The central two pins were removed and the posterior and anterior chamfers were cut next. The notch-cutting guide was placed. This was pinned to lateralize the femoral component as much as possible while keeping it flush on the cut surface. This was then pinned into position. A reciprocating saw was used to make the notch cut. A rasp smoothed the cut surfaces. The medial and lateral menisci were removed. A trial femoral component was then inserted, impacted down to the cut surfaces, and the lug holes were drilled. A provisional trial tibial component was placed and the knee was brought through range of motion. The polyethylene was trialed until there was good flexion and extension with excellent stability to the medial and lateral collaterals. The patella was tracking without thumbs. A size 7mm polyethylene component provided the best range of motion and stability with less than 2mm gapping with medial and lateral stress and full extension without significant hyperextension. The tibial cut surface was fully exposed. The tibia was then sized as a 6. The tibia had been previously marked during trialing to correspond to the center of the tibial component to help with rotation. The trial was aligned to this juana, approximately rotated to the medial 1/3rd of the tibial tubercle. The trial was pinned into place. The tibia was prepared with a reamer and a keel punch and lug holes. The knee was then brought into extension and the patella was measured as 27mm. Using the patellar clamp and cut guide, this was resected to a flat surface with at least 13mm of thickness remaining. The size 35 patella fit the best. This was oriented and then clamped into position. The lugs were drilled. The trial components were removed. The final components were opened on the back table. The periosteal and capsular tissues, especially posteriorly, around the knee were then systematically injected with a periarticular cocktail consisting of 50cc 0.25% Marcaine, 30mg Ketorolac, 20cc of Exparal and 50cc of injectable saline. The knee was thoroughly irrigated with a pulse lavage and dried. Irrisept was also used to irrigate the tissues. On the back table, with the implants opened, the cement was mixed. One batch of high viscosity cement was prepared with vacuum assistance. After the cement was ready a small amount was placed on the cut surface of the patella and the patellar button was clamped into position and held. While the cement was hardening, the cementless knee components were placed. Starting with the tibial component, the tibia was subluxed anteriorly and the lug holes of the component were lined up. The tibia was then impacted with an impactor and mallet until the tibial component was in contact with the tibia. The final polyethylene component was inserted. Then, the femoral component was inserted. The lug holes were aligned and the component was impacted into position. The knee was irrigated with Irrisept chlorhexadine solution. This was allowed to sit in the knee for 3 minutes. After the cement had finally cured, approximately 15min, the clamp was removed from the patella and the knee was taken through range of motion. The patella was tracking with a no-thumbs technique although it did want to ride laterally it still stayed within the trochlea. The capsule was then reapproximated with a No. 1 Vicryl at multiple locations. The capsule was finally closed with a No. 2 Stratafix, barbed suture. The second dosing of 1g TXA was started. Deep tissues were then reapproximated with 0 Vicryl and 2-0 Vicryl. The skin was closed with a running 3-0 Monocryl in a subcuticular fashion. This was reinforced with skin glue. A Mepilex silver dressing was applied along with a [id number] TALIA wrap. A CryoCuff was applied. NAME was transferred to the hospital bed without difficulty an suffering no apparent complication. Ravin has a good prognosis. Physical therapy will start today and without restrictions, weight-bearing as tolerated. Aspirin 81mg BID will be used for DVT prophylaxis.
[2020-12-26] MEDS: HYDROmorphone 2 MG/ML VIAL IVP ×3 (12:35→13:05)
--- NOTE | 2020-12-26 14:50 | IN_ITS ---
Date of service: 12/26/20 Time of Service: 14:50 PT Notes Visit Reasons: Left knee DJD Physical Therapy Day Surgery Initial Evaluation Date: 12/26/2020 Referring Doctor: FARIDA Haas PT Orders: PT CONSULT: Status post Ortho surgery Precautions: WBAT on right LE with AD. Patient Profile/Admitting Diagnosis: Ravin is a 50-year-old male with dig degenerative joint disease of the right knee and status post right total knee arthroplasty on postoperative day 0. He is also status post left TKA on 11/09/2020. PMHX: Medical History Acid reflux Asthma Hypertension Migraine Obstructive sleep apnea CPAP SLAP tear of shoulder Surgical History (Updated 11/29/20 @ 11:06 by Que Leyva RN) H/O arthroscopic knee surgery Left ACL reconstruction with patellar BTB 1997 Lateral release 2000 arthroscopy 2002 History of toe surgery Right great toe tendon repair 1994 History of total left knee replacement Hx of shoulder surgery S/P reconstruction of anterior cruciate ligament Left Extremities the R knee at rest adn with movement. Did not report dizziness, headache, chest pain throughout. Objective: General Observation: Supine in bed. TALIA wraps to R LE. Cryocuff to R LE. TEDS on L leg. Mental Status: Alert and oriented x4 Pain: 3/10 in the R knee incisional area ROM: Right Lower Extremity: Hip flexion WFL. Hip abduction WFL. Knee flexion 25 degrees through 110 degrees whiel seated at edge of bed. Knee extension -25 degrees. Ankle dorsiflexion WFL. Ankle plantarflexion WFL. Able to perform straight leg raises with -25 degree extension lag x 10. Strength: Right Lower Extremity: Hip flexors 4/5. Hip abductors 4/5. Knee flexors 3-/5. Knee extensors 3-/5. Ankle dorsiflexors 5/5. Ankle plantarflexors 5/5. Sensation: Intact as to pain and light light touch in bilateral lower extremities Bed Mobility/Transfers: Supine to sit independent Sit to stand independent Stand to sit independent Bed to chair supervision Gait: Guided patient through level surface ambulation of 200 feet +75 feet using bilateral axillary crutches using three-point gait pattern with weightbearing as tolerated on the right LE. Stand by assist provided by PT with wheelchair follow of nurse Berry. Minimal verbal cues provided for optimal posturing and correct gait pattern. Bilateral axillary crutches height and handle height adjusted to minimize pain report and maximize posture and gait pattern. Stairs: Instructed patient with negotiating three four 6-inch steps while using bilateral axillary crutches with step to gait pattern requiring contact-guard assist from PT and standby assist from nurses Kristi and Edel. Patient also managed covering up-and-down 24 6 inch steps using one crutch and with 1 hand holding onto the rail with standby assist of this provider and nurses Kristi and Edel. Balance: Static Sitting: Normal Dynamic Sitting: Normal Static Standing: Good Dynamic Standing: Fair Special Tests: Mobility Limitations Standardized Measure [facility] AM-PAC 6 clicks Basic Mobility Inpatient Short Form: Raw Score: 23 CMS Score: 11% deficit Informed Consent/Education: Patient instructed in purpose of PT consult. Has already received packet containing TKA exercise protocol previously. Has been advised to continue with same set of exercises as before. Assessment: Ravin requires the use of bilateral axillary crutches for all mobility ADL performance in order to maximize safety, minimize pain level, and reduce fall risk at home. He will have the support of his family as he recovers at home. May benefit from outpatient PT services in order to maximize strength and range of motion gains that will allow full return to ADL performance and vocational activity participation. Patient presents with clinical signs and symptoms consistent with current/admitting diagnoses that have resulted to mobility limitations, gait instability, generalized weakness, and impairment of motor control as dem onstrated by the following impairment level findings: 1. Decreased strength to right knee major muscle groups 2. Impaired standing balance 3. Limitation of joint range of motion in right knee Impairments are contributing to the following functional limitations: 1. Inability to safely ambulate without assistive device 2. Increase completion time for mobility ADL performance 3. Increased fall risk Patient is assessed as a 13863 moderate complexity based on the following: History: 50-year-old male with impairment level findings, functional limitations, and past medical history as indicated above Examination: Demonstrable impairment in strength, balance, and mobility level with underlying impairments and functional limitations as documented above Presentation: Stable Decision Makin moderate complexity Goals: N/A. PT evaluation and 1-2 treatment sessions only for functional mobility training using recommended AD and for HEP instruction. Plan of Care/Treatment Plan: N/A. PT evaluation and 1-2 treatment session only for functional mobility training using recommended AD and for HEP instruction. DISCHARGE RECOMMENDATIONS: Home when medically cleared by orthopedic surgeon. May benefit from outpatient PT services in order to maximize R knee muscle group strength and range of motion gains that will allow full return to ADL performance and vocational activity participation. TREATMENT CODE/TIME: 95224 x 25 minutes, 67495 x 13 minutes beginning at 14:50 PM. Thank you for the opportunity to participate in the care of this patient. Mary Voss PT, DPT, CLT [facility] [place], [place]
== END 2020-12-26 15:49 | disposition home or self-care (01) ==
LOC: SUR 08:08
PROVIDERS: PCP Nurse Practitioner Family; Visit Provider Student in an Organized Health Care Education/Training Program
PROC: (CPT 27447; principal; 2020-12-26 10:00)
DX: M17.11 Unilateral primary osteoarthritis, right knee (principal); G89.18 Other acute postprocedural pain; Z96.651 Presence of right artificial knee joint; M25.561 Pain in right knee; Z96.652 Presence of left artificial knee joint; J45.909 Unspecified asthma, uncomplicated; G47.33 Obstructive sleep apnea (adult) (pediatric); I10 Essential (primary) hypertension
CPT/HCPCS: 27447; C1776; 76942; 97162; 97530; NC; J0690; J1100; J1885; J2370; J2405; J2704

== ENCOUNTER 2021-01-10 10:23 | Outpatient (CLI) | payer OTHER, SELFPAY ==
--- NOTE | 2021-01-10 09:45 | DI.RAD_ITS ---
EXAM: XR KNEE RT 1V CLINICAL HISTORY: 1st post op R TKA. TECHNIQUE: 2D digital imaging was performed. COMPARISON: CR XR KNEE LT 1V from 11/29/2020 FINDINGS: Single lateral view of the right knee reveals satisfactory position of the recently placed prosthesis . No fracture or loosening evident on this view. IMPRESSION: DATA REPOSITORY: RADIATION DOSE DELIVERED:
--- NOTE | 2021-01-10 09:45 | DI.RAD_ITS ---
EXAM: XR STANDING ALIGNMENT CLINICAL HISTORY: 1ST POST OP R TKA. TECHNIQUE: 2D digital imaging was performed. COMPARISON: CR XR STANDING ALIGNMENT from 11/29/2020 FINDINGS: There has been interval placement of a right knee prosthesis. Appears to be in satisfactory position . There are now bilateral knee prostheses. Also evidence of previous left knee ACL surgery. Hips appear unremarkable with exception of a 1 millimeter calcific density just above the left hip gr eater trochanter. No osseous lesions in the femurs and bones of the lower legs. There are no abnorm alities of the talar domes. There is some bony excrescence seen off the outer aspect of both lateral malleoli at the ankle levels. IMPRESSION: DATA REPOSITORY: RADIATION DOSE DELIVERED:
== END 2021-01-10 10:24 | disposition home or self-care (01) ==
LOC: DIORS 10:24
PROVIDERS: PCP Nurse Practitioner Family; Referring Provider Nurse Practitioner Family; Visit Provider Physician Assistant
DX: Z96.651 Presence of right artificial knee joint (principal); Z47.1 Aftercare following joint replacement surgery
CPT/HCPCS: 73560; 77073

== ENCOUNTER 2021-01-19 15:51 | Inpatient (IN) | payer OTHER, SELFPAY ==
[2021-01-19 16:06] VITALS: BP 148/80; PULSE 78; RESP 15; TEMP 38.2; O2SAT 94
[2021-01-19 16:10] VITALS: BP 148/80; PULSE 78; RESP 15; TEMP 38.2; O2SAT 94
[2021-01-19 16:20] VITALS: BP 148/80; PULSE 78; RESP 15; TEMP 38.2; O2SAT 96
[2021-01-19 16:30] LABS: Source Nasal/Nares
[2021-01-19] MEDS: Normal Saline Flush 10 ML SYR (16:36)
--- NOTE | 2021-01-19 17:05 | HPE_ITS ---
Date of service: 01/19/21 Time of Service: 17:05 Assessment and Plan Assessment and plan (1) Infection of prosthetic right knee joint: Status: Acute Assessment and plan: Ravin is a 50-year-old who is about 3 and half weeks status post right knee replacement. He had a successful left knee replacement and unfortunately he has developed an infection within the right knee. He did call previously with a pop sensation about the knee on exam today he clearly has a medial arthrotomy rupture. This likely led to communication between the knee joint and subcutaneous tissue. The area of concern about the incision does have fluctuance this could have been the origin of the infection. Either way, he will need an aggressive washout. I reviewed this procedure with Ravin. I also discussed the next steps for getting home. He is not showing signs of sepsis. We will continue with ketorolac and acetaminophen. If he starts having fevers we will initiate antibiotics. His knee was aspirated this fluid is sitting in the lab being cultured. He will be n.p.o. after midnight. I reviewed the technical details with him and also reviewed the risk to include bleeding, continued infection, pain, stiffness, damage to nerves and vessels, damage to muscle tendons, blood clot. Despite these risk, he elects to proceed. Qualifiers: Encounter type: initial encounter Qualified Code(s): T84.53XA - Infection and inflammatory reaction due to internal right knee prosthesis, initial encounter History of Present Illness History of Present Illness Chief Complaint: Right Knee Pain and Swelling Na rrative: Ravin is a patient of mine who had a knee replacement on 12/26/20 of the right knee. he had previously had the left knee replaced on 11/14/20 without issue. He did have a sudden hyperflexion event with a pop which resulted in a partial arthrotomy rupture but otherwise was having an uneventful recovery. On he started having some increasing pain about the knee. Then Thursday, he felt the pain travel up and down the leg and his ability to ambulate worsened. He called the office describing whole leg spasms from his hip to his foot but denied joint pain. He was started on a Prednisone taper and Metaxalone for suspected sciatica. However, over the night Thursday he had fever and chills and was then unable to move the knee or ambulate so he presented to the [facility] ED. He was febrile. He had a CRP of 44, ESR of 40, WBC of 18, Hgb of 12, CMP normal with Creatinine of 0.8. He does have a prominence to the knee which is fluctuant. He currently denies fever. He has no chest pain or SOB. He has had no sick contacts. Review of Systems All systems reviewed & are unremarkable except as noted in HPI and below PFSH Medical History Acid reflux Asthma History of postoperative nausea and vomiting Hypertension Migraine Obstructive sleep apnea CPAP SLAP tear of shoulder Surgical History H/O arthroscopic knee surgery Left ACL reconstruction with patellar BTB 1997 lateral release 2000 arthroscopy 2002 History of toe surgery Right great toe tendon repair 1994 History of total left knee replacement (11/14/20) Hx of shoulder surgery S/P reconstruction of anterior cruciate ligament Left S/P tonsillectomy Status post arthroscopy of left shoulder Left SLAP tear Status post hernia repair Umbilical hernia Status post total right knee replacement (12/26/20) Tear of UCL of left elbow Kristofer Navin surgery ~2002 Tear of UCL of right elbow Kristofer Navin surgery November 1997 Social History Smoking/Tobacco Use Status: Never Smoking risk assessment performed?: Yes Alcohol Intake: never Drug use: Never Substance use type: does not use Do you feel safe at home: Yes Do you feel safe in your relationship?: Yes Meds Allergies and Home Medications Allergies Allergy/AdvReac Type Severity Reaction Status Date / Time Cooked Barr Peppers AdvReac Severe Nausea, Uncoded 01/10/21 10:06 vomiting Home Medications Medication Instructions Recorded Confirmed Type amlodipine 10 mg tablet 10 mg PO DAILY 10/15/20 01/19/21 History losartan 100 mg tablet 100 mg PO DAILY 10/15/20 01/19/21 History albuterol sulfate 90 mcg/actuation 2 puff INHALATION Q6H PRN 11/05/20 01/19/21 History aerosol inhaler fluticasone propionate 110 1 puff INHALATION BID PRN 11/05/20 01/19/21 History mcg/actuation HFA aerosol inhaler metoprolol succinate 25 mg 50 mg PO HS tab 11/05/20 01/19/21 History tablet,extended release 24 hr acetaminophen 500 mg tablet 1,000 mg PO TID #90 tab 11/12/20 01/19/21 Rx aspirin 81 mg tablet,delayed 81 mg PO BID #60 tab 12/25/20 01/19/21 Rx release gabapentin 300 mg capsule 300 mg PO QHS #30 cap 12/25/20 01/19/21 Rx pantoprazole 40 mg tablet,delayed 40 mg PO DAILY #30 tab 12/25/20 01/19/21 Rx release oxycodone 10 mg tablet 10 mg PO Q8H PRN #21 tab MDD 30 mg 01/17/21 01/19/21 Rx metaxalone 800 mg tablet 800 mg PO TID PRN #21 tab 01/18/21 01/19/21 Rx prednisone 10 mg PO DAILY 01/19/21 01/19/21 History Exam Narrative Exam Narrative: Abdomen is resting in the hospital bed talking on the phone. He is in no acute distress but does appear uncomfortable. Head is normocephalic atraumatic. Chest is clear to auscultation bilaterally. Heart rate rhythm are regular. Evaluation of the right leg shows obvious swelling to the right knee. There is mild erythema. There is a palpable effusion. There is pain to palpation. The knee is held in about 60 degrees of flexion. He only tolerates a few degrees of motion without having exquisite pain. There is a palpable defect over the superomedial aspect of the patella. There is also an area centrally within the wound which has fluctuance. This is approximately 2 cm in diameter but there is no lesion or area of drainage. No pain with palpation of the proximal thigh or within the calf of the lower leg. I sensation intact to light touch over the deep and superficial peroneal nerve and tibial nerve. Palpable DP and PT pulse. Then aspirate the knee using a superomedial approach. I was able to obtain 60 cc of purulent synovial fluid. This was sent to the lab for cell count and culture. Results Labs Labs: Laboratory Results - last 24 hr 01/19/21 16:10 COVID-19 Source Nasal/nares Last Vital Signs Temp 38.2 C H 01/19/21 16:20 Pulse 78 01/19/21 16:20 Resp 15 01/19/21 16:20 BP 148/80 H 04/24/21 16:20 Pulse Ox 96 01/19/21 16:20 COVID-19 Screening Have you, or household traveled for leisure in last 14 days?: No Had IN PERSON contact w/suspected or confirmed C-19 person: No
[2021-01-19] MEDS: Lactated Ringers 1,000 ML 80 ML IV (17:15)
[2021-01-19 18:34] LABS: Clarity Cloudy
[2021-01-19 18:39] LABS: Mononuclear Cells 7 %; Nucleated Cells 108900 uL (0); Polynuclear Cells 93 %
[2021-01-19 18:50] VITALS: PULSE 88; TEMP 38.8
[2021-01-19] MEDS: Ketorolac 15 MG/ML VIAL IVP (19:00)
[2021-01-19] MEDS: Normal Saline Flush 10 ML SYR IVP (19:01)
[2021-01-19] MEDS: Acetaminophen 500 MG TAB 1000 MG PO (19:55)
[2021-01-19 19:57] VITALS: TEMP 38.3
[2021-01-19 20:55] VITALS: TEMP 37.2
[2021-01-19] MEDS: VANCOMYCIN 1,000 MG in Normal Saline 250 ML 166.6666 MG IVPB (21:34)
[2021-01-19] MEDS: Gabapentin 300 MG CAP PO (21:34)
[2021-01-19] MEDS: Metoprolol CR 25 MG TABCR 50 MG PO (21:34)
[2021-01-19] MEDS: oxyCODONE 5 MG TAB 10 MG PO (22:09)
[2021-01-20] VITALS (13 sets, daily range): BP systolic 94–170; BP diastolic 45–85; PULSE 61–84; RESP 12–20; TEMP 36.4–38; O2SAT 95–100
[2021-01-20 00:31] LABS: COVID-19 PCR Negative (Negative)
[2021-01-20] MEDS: Albuterol HFA 8 GM 60 PUFF INH IH (01:00)
[2021-01-20] MEDS: Ketorolac 15 MG/ML VIAL IVP ×2 (01:24→07:45)
[2021-01-20] MEDS: oxyCODONE 5 MG TAB 10 MG PO ×6 (01:25→23:37)
[2021-01-20] MEDS: VANCOMYCIN 1,000 MG in Normal Saline 250 ML 167 MG IVPB (05:25)
[2021-01-20] MEDS: Lactated Ringers 1,000 ML 80 ML IV ×2 (05:25→23:37)
[2021-01-20] MEDS: Water,Injection,Sterile 10 ML VIAL (05:38)
--- NOTE | 2021-01-20 07:01 | PGE_ITS ---
Date of Service Date of service: 01/20/21 Time of Service: 09:41 Assessment and Plan Assessment and plan (1) Infection of prosthetic right knee joint: Status: Acute Assessment and plan: Ravin is a 50-year-old who is 3 and half weeks status post right knee replacement who developed new pain and symptoms on , January 17, for concerning at the time but have progressed into fulminant infection of the right knee. Aspirate yesterday is growing gram-positive cocci greater than 100,000 cells and greater than 90% neutrophils which is infection by definition. I was attempting to hold off on the antibiotics until he got to the operating room but he was having some febrile events last night so I restarted the vancomycin. He has the aspirate in the lab now which should ho pefully provide the organism for better antibiotic selection. He will remain n.p.o. this morning. We will plan to go to the OR this morning for extensive and aggressive irrigation and debridement with synovectomy and likely placement of antibiotic beads and attempted closure of the arthrotomy rupture. I reviewed all this with Ravin. He is in agreement with the plan. I did discuss the technical features of the case. I also reviewed the risk which is primarily continued infection. He will have some weakness, stiffness, and pain to start. He does have risk of blood clot. Depending on the mobility of the tissues for the arthrotomy closure may place him into a knee immobilizer for the first 2 weeks which he is in agreement with. Qualifiers: Encounter type: initial encounter Qualified Code(s): T84.53XA - Infection and inflammatory reaction due to internal right knee prosthesis, initial encounter Subjective Subjective Interval history since last seen: Ravin continues to report pain about the right knee. He has been taking medications which have provided relief. He has been able to sleep some during the night. He did have fevers last night in the evening time. Therefore, I restarted vancomycin 1 g every 8. He had no additional fevers overnight. His vital signs have been stable. Objective Last Vital Signs Temp 37.5 C 01/20/21 04:05 Pulse 74 01/20/21 04:05 Resp 16 01/20/21 04:05 BP 126/74 01/20/21 04:05 Pulse Ox 96 01/20/21 04:05 Laboratory Results - last 24 hr 01/19/21 01/19/21 16:10 17:10 Fluid Source R knee Fluid Color Yellow Fluid Clarity Cloudy Fluid WBC [id number] Fld Polynuclear WBCs % 93 Fluid Mononuclear Cell 7 COVID-19 Source Nasal/nares SARS-CoV-2 (PCR) Negative
[2021-01-20] MEDS: Acetaminophen 500 MG TAB 1000 MG PO ×3 (07:44→20:20)
[2021-01-20] MEDS: amLODIPine 10 MG TAB PO (07:45)
[2021-01-20] MEDS: Normal Saline Flush 10 ML SYR IVP ×2 (07:45→20:19)
[2021-01-20] MEDS: VANCOMYCIN/WATER (PEG) 1 GM/200 ML BAG IVPB ×2 (12:05→20:19)
[2021-01-20] MEDS: Bupivacaine 0.25% Pres-Free 30 ML VIAL (12:16)
[2021-01-20] MEDS: Normal Saline 20 ML VIAL (12:16)
[2021-01-20] MEDS: Ketorolac 30 MG/ML VIAL (12:16)
--- NOTE | 2021-01-20 13:30 | W.PM.OP ---
Date of service: 01/20/21 Time of Service: 13:02 Operative Note Operative Note DATE OF PROCEDURE: 01/20/21 PRE-OP DIAGNOSIS: Right Prosthetic Knee Infection POST-OP DIAGNOSIS: same PROCEDURE: Right Knee Irrigation and Debridement with Synovectomy, Antiobiotic Bead Placement, and Polyethylene Exchange SURGEON: Mikel Garcia TABLEAU ADMINISTRATOR: Guera Humphreys ANESTHESIA TYPE: General LMA/ETT and Spinal Refer to Anesthesia Record ESTIMATED BLOOD LOSS: 400 PATHOLOGY: other (Tissue and fluid sent for aerobic and anaerobic culture) TOURNIQUET TIME: 0 COMPLICATIONS: None Patient was transported to: PACU Patient's condition: stable Implants: Depuy Attune 7x7 CR/RP Poly Indications: Ravin is a 50-year-old who is 3 and half weeks out from a right knee replacement. He began to develop exquisite pain on the right knee last week which developed into progressive loss of weightbearing, motion, along with fever and chills. He presented to the emergency department at [facility] where there is a concern about a septic joint. Given the knee replacement I was called in transfer to my service at [facility]. Aspiration of the knee confirmed the clinical diagnosis of a prosthetic joint infection with greater than 100,000 cells and greater than 90% PMNs. I recommended aggressive debridement with irrigation along with antibiotic bead placement and exchange of the polyethylene. He was started on antibiotics before the surgery but after the aspiration due to low-grade fevers. I discussed the technical details. I also reviewed the risk of the procedure to include bleeding, continued infection, pain, stiffness, weakness, need for repeat procedures, blood clot. Despite these risk, he elects to proceed. Findings: There is gross purulence encountered above the fascia and also within the knee. The bulk of the infectious material appeared to be in the subcutaneous tissues. Unfortunately, there is a arthrotomy rupture starting at about 1:00 and extending into the distal two thirds of the arthrotomy through the quadriceps tendon. An aggressive synovectomy debridement was performed. The polyethylene was exchanged for a new 7 x 7 CR/RP polyethylene. The arthrotomy was able to be repaired completely after debriding down to healthy tendon and capsular material. It was tested up to 100 degrees and showed no gapping of the arthrotomy site. Procedure Description: Ravin was greeted in the preoperative holding area where the correct side was identified and marked. The consent was reviewed with the patient and signed on the floor prior to the surgery. Ravin was taken back to the operating room. A spinal anesthestic was then administered. However, the spinal did not seem to be setting up fully and so he was converted to a general anesthetic. As a note, when he awoke from the case he did have both legs numb. The patient was placed into the supine position on the operating room table. A nonsterile tourniquet was placed high onto the leg but only used for cementing. Posts were placed for positioning during the procedure. All bony prominences were well padded. Prophylactic antibiotics in the form of cefazolin were administered. 1g of Tranxemic Acid was given intravenously within 30 minutes of incision. The right leg was then prepped with Chloraprep and draped in a standard fashion with impervious stockinette. A second prep with Chloraprep was performed prior to application of Iodine impregnated skin protection. A timeout to confirm correct identity, side and site, procedure, allergies, anesthesia, and medical concerns was performed. With the knee in some flexion, a midline incision was made overlying the knee excising any concerning parts of the old incision. Immediately, gross purulence was encountered. This extended on top of the patella and on top of the vastus medialis obliqus. There was an obvious rupture of the arthrotomy with penetration into the joint of purulent material. Culture swabs were taken and sent. Full thickness skin flaps were raised once the extensor mechanism was encountered. These were raised medially and laterally. Any bleeding was controlled with electrocautery. A rongeur was used to perform initial debridement of the arthrotomy edges, especially those that were already torn. I used a rongeur to get back to normal-appearing tendinous material as well as retinacular tissue around the patella. The arthrotomy was expanded proximally and distally. Old suture material was removed. I then used 2 José and 2 Allis clamps to separate the synovium from the overlying extensor tendon and capsule. A complete synovectomy was performed both medially and laterally. Synovium from the anterior femur was also removed. Any remnant synovium in the gutters was removed with a rongeur. I performed a periosteal peel of both the medial and lateral capsular tissues. The inner portion of these tissues was also debrided with a rongeur. While there were some inflammatory changes seen around that arthrotomy site the remainder of the knee appeared to be quite good with minimal purulence encountered within the knee deeply. He was brought into some hyperflexion and a straight osteotome was used to cut the peg of the polyethylene for easy removal. Once this was removed the notch the posterior tissues were debrided with a rongeur. I then irrigated the knee with 6 L of normal saline using cystoscopy tubing. Breaks were taken during this irrigation process to perform additional debridement of any necrotic or ill appearing tissue. Manual investigation of the wound was performed to make sure there is no pockets and once again to fully debride. Once irrigation was completed the wound appears quite healthy without any signs of necrotic or purulent material. Dirty instruments were removed from the field and everyone changed their gloves to new gloves. The knee was irrigated with chlorhexidine irrigation solution, irrisept. The new polyethylene was then inserted at the knee in hyperflexion. During the end of the irrigation process and on the back table, 10 cc of stimulant beads were prepared with 1 g of vancomycin antibiotic powder. These were inserted into the suprapatellar pouch. The knee was then injected with a mixture of 50 cc of 0.5% bupivacaine, 20 cc of Exparel, and 30 mg of ketorolac. The arthrotomy was then reapproximated and closed with a #1 antibiotic laden PDS suture. There was no significant difficulty with closure of the arthrotomy. This closure was performed at 90 degrees of flexion. The remainder of the arthrotomy was closed with the #1 PDS suture in [id number] fashion. Once this was completed the knee was tested in the arthrotomy stable to least 100 or 105 degrees. The subcutaneous tissues were reapproximated with 0 PDS and 2-0 Monocryl. The skin was closed with a running 3-0 Monocryl in a subcuticular fashion. A joaquin vacuum-assisted dressing was applied along with a [id number] TALIA wrap. Ravin was transferred to the hospital bed without difficulty an suffering no apparent complication. Ravin has a guarded prognosis. Ravin will be weight-bearing as tolerated and flexion as tolerated up to 90 degrees. Aspirin 81mg BID will be used for DVT prophylaxis. We will continue to follow knee cultures and treat currently with vancomycin. Blood cultures should be returned from [facility] today or tomorrow and we will likely place a PICC line for outpatient antibiotic administration.
--- NOTE | 2021-01-20 17:35 | INITIAL_ITS ---
- If Service Date Differs Date of service: 01/20/21 Time of Service: 17:35 Care Management Initial Assess REASON FOR HOSPITALIZATION:: Infected TKA PAST MEDICAL HISTORY/PAST SURGICAL HISTORY:: Medical History. Acid reflux. Asthma. History of postoperative nausea and vomiting. Hypertension. Migraine. Obstructive sleep apnea. CPAP. SLAP tear of shoulder. Surgical History. H/O arthroscopic knee surgery. Left ACL reconstruction with patellar BTB. 1997. lateral release 2000. arthroscopy 2002. History of toe surgery. Right great toe tendon repair. 1994. History of total left knee replacement (11/14/20). Hx of shoulder surgery. S/P reconstruction of anterior cruciate ligament. Left. S/P tonsillectomy. Status post arthroscopy of left shoulder. Left SLAP tear. Status post hernia repair. Umbilical hernia. Status post total right knee replacement (12/26/20). Tear of UCL of left elbow. [facility] surgery. ~2002. Tear of UCL of right elbow. [facility] surgery. November 1997 PREVIOUS FUNCTIONAL STATUS/SOCIAL/FAMILY SUPPORTS:: Ravin lives in [place] with his , Celi and their two children. 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 He is independent at baseline. CURRENT FUNCTIONAL STATUS:: Ravin was sitting up in bed when CM met with him. He reported that he is going to the OR soon to repair his infected knee. He stated that he has had a lot of surgeries, some due to sports injuries, some accidents. He stated that per MD, he will likely have to go to the infusion room in [place] for IV abx post surgically. CM discussed this with MD, who is unsure of the abx course at this time, awaiting sensitivities. CM will continue to follow. ADVANCE DIRECTIVES:: None on file. CM will offer forms. Has patient been provided with info about the portal/API?: Yes Did the patient sign up for the portal?: Yes (previously signed up) CODE STATUS:: Full Code INSURANCE COVERAGE / FINANCIAL ISSUES:: [place] CURRENT HOME/COMMUNITY SERVICES/EQUIPMENT:: No services. PRIMARY CARE PHYSICIAN:: Lea Orosco POTENTIAL DISCHARGE NEEDS:: IV abx home vs infusion room, follow up appointments PATIENT/FAMILY EDUCATION NEEDS:: Review discharge instructions regarding activity levels and medications, discussion of self care needs. ANTICIPATED BARRIERS TO DISCHARGE:: None identified. TRANSPORTATION:: Via private vehicle by family. PLAN:: Anticipate Ravin will return home when medically cleared. He will likely require director long term care IV abx which CM will explore options for, either home vs infusion room. He will be driven home via private vehicle by family. He will follow up with Ortho and his discharge plan of care.
[2021-01-20] MEDS: Aspirin E.C. 81 MG TABEC PO (20:20)
[2021-01-20] MEDS: Gabapentin 300 MG CAP PO (21:55)
[2021-01-20] MEDS: Metoprolol CR 25 MG TABCR 50 MG PO (21:55)
[2021-01-21 04:00] VITALS: BP 135/82; PULSE 61; RESP 12; TEMP 36; O2SAT 97
[2021-01-21] MEDS: oxyCODONE 5 MG TAB 10 MG PO ×3 (04:03→10:52)
[2021-01-21] MEDS: VANCOMYCIN/WATER (PEG) 1 GM/200 ML BAG IVPB ×3 (04:03→16:04)
[2021-01-21] MEDS: Docusate Sodium 100 MG CAP PO ×2 (05:46→19:54)
[2021-01-21] MEDS: Ketorolac 15 MG/ML VIAL IVP ×3 (06:26→18:24)
[2021-01-21] MEDS: Normal Saline Flush 10 ML SYR IVP ×10 (06:26→22:33)
[2021-01-21] MEDS: Pantoprazole 40 MG TABCR PO (06:42)
[2021-01-21] MEDS: HYDROmorphone 2 MG/ML VIAL 1 MG IVP ×7 (06:43→22:32)
[2021-01-21 06:55] LABS: Abs Immature Grans 0.11 10^3/uL (0.0-0.06); Absolute Basophil Count 0.03 10^3/uL (0.0-0.2); Absolute Lymphocyte Count 1.87 10^3/uL (1.2-3.4); Basophils % 0.2; Eosinophils % 0.3; HCT 29.9 % (40.0-50.0); HGB 9.7 g/dL (13.5-17.5); Immature Grans % 0.8; MCH 28.4 pg (27.0-33.0); MCHC 32.4 % (32.0-36.0); MCV 87.7 fL (80-95); MPV 9.8 fL (8.0-11.0); Monocytes % 10.6; Neutrophils % 75.1; Nucleated RBC 0 %; Platelet Count 297 10^3/uL (130-400); RBC 3.41 10^6/uL (4.36-5.78); RDW 13.4 % (11.8-14.1); RDW-SD 43.6 fL; WBC 14.37 10^3/uL (4.4-10.8)
[2021-01-21 07:04] LABS: Absolute Eosinophil Count 0.04 10^3/uL (0.0-0.7); Absolute Monocyte Count 1.52 10^3/uL (0.1-0.8); Absolute Neutrophil Count 10.79 10^3/uL (1.2-6.7)
[2021-01-21 07:07] LABS: Anion Gap 8.7 mmol/L (3-11); BUN 15 mg/dL (7-18); C-Reactive Protein 13.21 mg/dL (0.0-0.3); CO2 27.3 mmol/L (21.0-32.0); CREATININE 0.8 mg/dL (0.70-1.30); Calcium 9.1 mg/dL (8.5-10.1); Chloride 101 mmol/L (98-107); Glucose 129 mg/dL (74-106); Potassium 3.9 mmol/L (3.5-5.1); Sodium 137 mmol/L (136-145)
[2021-01-21 07:18] VITALS: BP 136/77; PULSE 63; RESP 16; TEMP 36.2; O2SAT 98
[2021-01-21] MEDS: Aspirin E.C. 81 MG TABEC PO ×2 (07:31→19:54)
[2021-01-21] MEDS: Acetaminophen 500 MG TAB 1000 MG PO ×3 (07:32→19:54)
[2021-01-21] MEDS: amLODIPine 10 MG TAB PO (07:32)
[2021-01-21 07:39] LABS: Diff Comment Agrees w/ Instrument
[2021-01-21 07:40] LABS: Polychromasia Present
[2021-01-21 13:35] VITALS: BP 135/81; PULSE 70; RESP 15; TEMP 36; O2SAT 97
[2021-01-21] MEDS: Senna TAB 1 TAB PO ×2 (13:39→19:54)
[2021-01-21] MEDS: oxyCODONE 10 MG TAB PO ×3 (13:39→21:28)
[2021-01-21] MEDS: Polyethylene Glycol 3350 17 GM PACKET PO ×2 (13:39→19:52)
--- NOTE | 2021-01-21 14:12 | CHAPLAIN ---
I introduced myself to Ravin and explained my role. He told me about his surgery today to clean out an infected knee following a knee replacement a month ago. He's waiting to hear what type of antibiotics he needs and expects to be discharged tomorrow. He was looking forward to his visiting this afternoon.
[2021-01-21] MEDS: Hyaluronidase 150 UNITS VIAL 15 UNITS IJ (14:39)
[2021-01-21 15:46] VITALS: BP 133/75; PULSE 74; RESP 18; TEMP 36.9; O2SAT 96
--- NOTE | 2021-01-21 16:00 | PHA.REVIEW ---
Pharmacy Admission Review - Admission Clinical Review (Last Reviewed 01/19/21 @ 21:25 by Mikel Garcia MD) Infection of prosthetic right knee joint (Acute ~01/17/21) Cooked Barr Peppers Adverse Reaction (Severe, Uncoded 01/10/21 10:06) Nausea, vomiting Height 5 ft 9 in Weight 136.45 kg - Renal Dosing Renal Dosing: BUN 15 mg/dL (7-18) 01/21/21 06:00 Creatinine 0.8 mg/dL (0.70-1.30) 01/21/21 06:00 Medications needing adjustments: Reviewed (Crcl over 110 mL/min using adjusted body weight, current meds okay) - Anticoagulation Anticoagulation: Hgb 9.7 g/dL (13.5-17.5) L 01/21/21 06:00 Hct 29.9 % (40.0-50.0) L 01/21/21 06:00 Plt Count 297 10^3/uL (130-400) 01/21/21 06:00 Creatinine 0.8 mg/dL (0.70-1.30) 01/21/21 06:00 DVT Prohphylaxis: Reviewed Medications: Aspirin - Opiate Usage Evaluate Pain Scale/Pains Meds: Reviewed Scheduled Bowel Reg ordered if on Opiates?: No (has PRN meds ordered) - Relevant Labs Sodium 137 mmol/L (136-145) 01/21/21 06:00 Potassium 3.9 mmol/L (3.5-5.1) 01/21/21 06:00 Chloride 101 mmol/L (98-107) 01/21/21 06:00 C-Reactive Protein 13.21 mg/dL (0.0-0.3) H 01/21/21 06:00 Electrolytes, C-Reactive P, ESR: Reviewed - DM Control DM Control: Glucose 129 mg/dL (74-106) H 01/21/21 06:00 Insulin Dosing: N/A (BG mildly elevated this morning.) - Heart Failure/VT EF%, TALIA's, B-Blockers, Diuretics: N/A - BP Control BP Control: Blood Pressure 133/75 Blood Pressure 135/81 Blood Pressure 136/77 - Qtc Review If Elevated: N/A - IV to PO Switch IV Medications: Reviewed - Home Meds Home Med List reviewed: Reviewed (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 Antibiotic Activity - Pharmacy Antibiotic Review Pharmacy Antibiotic Activity: Reviewed, no change (Vanco continues (day 3 starts this evening). Vanco extravasated this afternoon, hyluronidase was given. Trough scheduled for tomorrow afternoon.)
--- NOTE | 2021-01-21 16:54 | PDOC.CMPRO ---
- If Service Date Differs Date of service: 01/21/21 Time of Service: 16:54 Care Management Progress Note S/O: Ravin was sitting up in bed when CM met with him. He reported that he doesn't remember most of yesterday, but he believes the surgery went well. He stated that he has been having a lot of pain. His RN was in the room at the time of the visit. He stated that he has not yet met with the MD today, but expects to see him later. SUDHIR discussed options for his antibiotic course, and he is agreeable to going to the infusion room in [place]. He stated that he is not home bound, so home abx would not be a good option for him. He received a PICC line today, and there was concern with him ambulating with crutches so close to the PICC line. CM called PT, who reported that they are not currently working with him. CM contacted MD, who will put an order in for him to be evaluated by PT. CM will continue to follow. A: Ravin is a 50 year old male admitted to [facility] on 01/19/21 with an infected TKA. P: Anticipate Ravin will return home when medically cleared. He will likely require intermission coordinator IV abx which CM will explore options for, either home vs infusion room. He will be driven home via private vehicle by family. He will follow up with Ortho and his discharge plan of care. CM will continue to follow.
--- NOTE | 2021-01-21 18:49 | NUR.NOTE ---
Nursing Note: 01/21/21 18:49 At approximately 1400 this RN was in patient's room, had been monitoring IV site on right wrist during infusion, and noted swelling around site and immediately discontinued vancomycin infusion that was infusing. This RN explained all interventions to patient who verbalized understanding. Charge nurse, Zakia, was notified and pharmacy was notified. IV was discontinued by this RN. Recommendations per Up To Date were followed to include elevation of arm, dry heat, and administration of hyaluronidase (see MAR). Area was circled to measure 18 cm by 9 cm area on top of right forearm and top of hand. Situation was explained to patient, patient verbalized understanding of vancomycin extravasation and how it is treated, was agreeable throughout. This RN has continued to monitor throughout this afternoon and evening, swelling to forearm has decreased with swelling still noted on top of right hand at this time. Patient continues to have right arm elevated on 2 pillows with dry heat (aqua K) applied.
--- NOTE | 2021-01-21 20:04 | W.PM.PROGNOT ---
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 He is doing as expected. He did have some acute blood loss anemia which is not unexpected. He is having some increasing pain this morning which is likely due to a combination of peeking inflammation from the aggressive synovectomy as well as waning local anesthetic coverage which was injected at the time of the surgery. He has been able to mobilize and move the knee some which is an improvement from before although it is painful. I will increase his oxycodone for short period of time as I expect his pain will diminish over the next 24 hours or so. Continue with vancomycin. Awaiting speciation and sensitivities from the lab but likely discharge tomorrow with outpatient intravenous antibiotic administration. Plan for PICC line today. Weightbearing as tolerated. Physical therapy consult. Aspirin 81 mg twice daily for DVT prophylaxis. Qualifiers: Encounter type: initial encounter Qualified Code(s): T84.53XA - Infection and inflammatory reaction due to internal right knee prosthesis, initial encounter Subjective Subjective Interval history since last seen: Ravin has had some increasing pain this morning. And is being managed with the current regimen but he is maxing it out and is concerned that his pain seems to be increasing. Otherwise, he denies fevers or chills. He has been able to mobilize. He has been using the Cryo/Cuff. Initial cultures are growing gram-positive cocci, likely staph species. Exam Narrative Exam Narrative: Sitting up comfortably in the hospital bed. Darrin wrap is applied to the right leg. He is able demonstrate active ankle dorsiflexion and plantarflexion as well as great toe extension and flexion. Sensation intact light touch of the deep and superficial peroneal nerves and tibial nerve. Capillary fill less than 2 seconds. Objective Last Vital Signs Temp 36.9 C 01/21/21 15:46 Pulse 74 01/21/21 15:46 Resp 18 01/21/21 15:46 BP 133/75 01/21/21 15:46 Pulse Ox 96 01/21/21 15:46 Laboratory Results - last 24 hr 01/21/21 01/21/21 06:00 06:00 WBC 14.37 H RBC 3.41 L Hgb 9.7 L Hct 29.9 L MCV 87.7 MCH 28.4 MCHC 32.4 RDW 13.4 Plt Count 297 MPV 9.8 Immature Gran % 0.8 Neutrophils % 75.1 Lymphocytes % 13.0 Monocytes % 10.6 Eosinophils % 0.3 Basophils % 0.2 Nucleated RBC % 0 Absolute Neutrophils 10.79 H Absolute Lymphocytes 1.87 Absolute Monocytes 1.52 H Absolute Eosinophils 0.04 Absolute Basophils 0.03 RBC Morphology See below Polychromasia Present Sodium 137 Potassium 3.9 Chloride 101 Carbon Dioxide 27.3 Anion Gap 8.7 BUN 15 Creatinine 0.8 Estimated GFR/1.73 m2 >= 60.00 Glucose 129 H Calcium 9.1 C-Reactive Protein 13.21 H
[2021-01-21 20:10] VITALS: BP 143/72; PULSE 75; RESP 18; TEMP 36.1; O2SAT 98
[2021-01-21] MEDS: Metoprolol CR 25 MG TABCR 50 MG PO (22:16)
[2021-01-21] MEDS: Gabapentin 300 MG CAP PO (22:16)
[2021-01-22 00:22] VITALS: BP 126/78; PULSE 67; RESP 14; TEMP 36.2; O2SAT 97
[2021-01-22] MEDS: oxyCODONE 10 MG TAB PO ×4 (00:23→14:29)
[2021-01-22] MEDS: Ketorolac 15 MG/ML VIAL IVP ×3 (00:23→12:08)
[2021-01-22] MEDS: Normal Saline Flush 10 ML SYR IVP ×3 (00:24→12:08)
[2021-01-22] MEDS: VANCOMYCIN/WATER (PEG) 1 GM/200 ML BAG IVPB ×2 (00:24→08:17)
[2021-01-22] MEDS: HYDROmorphone 2 MG/ML VIAL 1 MG IVP (04:33)
[2021-01-22 04:37] VITALS: BP 136/83; PULSE 68; RESP 10; TEMP 36.8; O2SAT 98
[2021-01-22 05:03] VITALS: PULSE 66; RESP 12
--- NOTE | 2021-01-22 05:32 | DSE_ITS ---
Date of service: 01/22/21 Time of Service: 10:22 DS: Diagnosis Discharge Diagnosis (1) Infection of prosthetic right knee joint: Status: Acute Discharge Plan Disposition Patient Disposition: HOME Condition: Improving Discharge Details Reason For Visit: INFECTED TKA Admit Date/Time: 01/19/21 15:51 Admit Provider: Mikel Garcia Attending Provider: Mikel Garcia Primary Care Provider: Lea Orosco Hospital Course Hospital Course: Ravin was seen initially the [facility] emergency department where I was called for concern of infected total knee on the right side. After discussing this with the emergency provider I agree with the diagnosis and I directly admitted out of him to the floor on January 19. On hospital day #2, January 20, Ravin was taken to the operating room for irrigation debridement with aggressive synovectomy and placement of antibiotic beads and polyethylene exchange for infected right total knee after aspiration on his admission revealed greater than 100,000 cells and greater than 90% PMNs. There is no acute concerns with the surgery itself. Microbiology grew out staph aureus. He had no additional fevers or chills. He was started on antibiotics, vancomycin. He tolerated this well. He was able to mobilize. However, he did have significant pain postoperatively. This required a notable increase in his baseline pain medication. He tolerated this higher dose well and was weaned off of IV medications prior to discharge. He was voiding spontaneously and tolerating regular diet. He had no other medical concerns. The bacteria returned as MSSA and thus he was switched to Ceftriaxone and will be discharged on daily infusion of 2g of Ceftriaxone along with Rifampin. Home Meds and New Rx's Prescriptions: New rifampin 300 mg capsule 600 mg PO DAILY Qty: 60 RF: 0 oxycodone 10 mg tablet,oral only,ext.rel.12 hr 10 mg PO BID Qty: 7 RF: 0 Continued amlodipine 10 mg tablet 10 mg PO DAILY RF: 0 losartan 100 mg tablet 100 mg PO DAILY RF: 0 metoprolol succinate 25 mg tablet extended release 24 hr 50 mg PO HS RF: 0 Flovent HFA 110 mcg/actuation HFA aerosol inhaler 1 puff inhalation BID PRNRF: 0 albuterol sulfate [ProAir HFA] 90 mcg/actuation HFA aerosol inhaler 2 puff inhalation Q6H PRNRF: 0 acetaminophen 500 mg tablet 1,000 mg PO TID Qty: 90 RF: 0 gabapentin 300 mg capsule 300 mg PO QHS Qty: 30 RF: 1 celecoxib 200 mg capsule 200 mg PO BID Qty: 60 RF: 1 aspirin 81 mg tablet,delayed release (DR/EC) 81 mg PO BID Qty: 60 RF: 0 Changed oxycodone 10 mg tablet 10 mg PO Q4H PRN MDD 30 mg PRN (Reason: severe pain) Qty: 24 RF: 0 Discontinued gabapentin 300 mg capsule 300 mg PO QHS Qty: 30 RF: 0 pantoprazole 40 mg tablet,delayed release (DR/EC) 40 mg PO DAILY Qty: 30 RF: 0 metaxalone 800 mg tablet 800 mg PO TID PRN (Reason: muscle pain) Qty: 21 RF: 0 prednisone 5 mg tablet 10 mg PO DAILY RF: 0 No Action pantoprazole 40 mg tablet,delayed release (DR/EC) 40 mg PO DAILY Qty: 30 RF: 3 Discharge Instructions Additional Instructions: Total Knee Discharge Instructions Activity: The most important activity is to walk. You should try to take short walks a few times a day. It is important that when resting you work on keeping the knee straight. Avoid putting a pillow behind the knee as this will encourage flexion. Work on range of motion exercises as provided by Physical Therapy. It is important to focus on range of motion despite your pain. However, we are not trying to force flexion. Do not attempt trying to bend it past 90 degrees until instructed to do so. - Start outpatient physical therapy as previously scheduled - You should wear the LETICIA hose on both legs for 2 weeks. You may remove these at night. You may also use any compression sock in place of the LETICIA hose. Dressing: You have a vacuum-assisted dressing on the right knee. This will stay in place until it peels off, becomes totally engorged or soiled, or the battery of the vacuum device stops working. Once this occurs, the vacuum-assisted dressing may be removed and replaced with a new vacuum dressig or a Mepilex silver dressing. You should be sent home with a Mepilex dressing to apply when this occurs. The wound and dressing may get wet after 3 days but avoid soaking the dressing or otherwise it will need to be changed. I recommend covering the dressing with cling wrap (saran wrap) to minimize it from getting soaked. If it gets wet, just pat dry. If it starts to peel off then it will need to be changed. Medications: - ANTIBIOTICS: - You will be having infusions daily of Ceftriaxone 2gram daily. This will be through the PICC line at [facility]. We should check labs in one week (CBC, CMP, CRP) then every 2 weeks - You also have been prescribed Rifampin to help with eradicating bacteria f rom the metal. This may make your urine and tears and secretions orange colored. Additionally, it may make your blood pressure medications less effective. Please check your blood pressures regularly to make sure that this medication is not altering your pressures too much. If your blood pressures are running higher consistently please contact Dr. Garcia and your PCP. - You should take Tylenol and anti-inflammatory Celebrex as your primary pain control medications. If the Celebrex is too expensive or not covered, please call the office for another alternative (Advil/Ibuprofen or Naproxen/Aleve) - You have been prescribed a stronger pain medication Oxycodone for breakthrough pain, take as needed as prescribed. You have been on a higher dose of oxycodone which makes you at higher risk for addiction and adverse reactions. Is important that you actively work on reducing the amount of pain medication that you are taking. To supplement some of your pain you have been prescribed a l onger acting medication to be used for 3 days. You will take the short-acting Oxycodone if needed on top of the longer acting medication. - You have also been prescribed a stomach acid reduction agent Pantoprozole to help reduce stomach acid and reflux. - You have been prescribed Gabapentin to take at night for restlessness and nerve pain. - You will be taking Aspirin 81mg twice a day for DVT prevention unless instructed otherwise. - If you have constipation you should take Colace or Miralax (both [id number]). It takes most people 3-4 days to have a bowel movement. Follow-up: 2 weeks If you have any acute concerns or questions, please do not hesitate to contact the office at [phone]. You may contact Dr. Garcia with any questions after hours through the hospital at [phone] or on his cell phone at [phone]. Referrals: Mikel Garcia MD [ [facility] STAFF PHYSICIAN] - 02/08/21 9:30 am Activity:: Activity as Tolerated Equipment/Supplies:: No Equipment Needed Diet:: As Tolerated Discharge Orders Discharge Orders: Discharge Order (Routine); Ordered 01/22/21 Ordered By: Mikel Garcia DS: Summary Time Spent with Patient providing and/or coordinating discharge services: Less than 30 minutes Status at Discharge Functional status at discharge: uses cane/walker Overall status at discharge: patient is progressing back to baseline Mental Status: mental status grossly normal Speech and Movement: speech and movement normal Mood: congruent mood Affect: normal affect Exam Psych Mental Status: mental status grossly normal Speech and Movement: speech and movement normal Mood: congruent mood Affect: normal affect DS: Data Vitals/I&O Vitals and I&O: Vital Signs Temperature 36.8 C 01/22/21 04:37 Temperature Source Tympanic 01/22/21 04:37 Pulse 66 01/22/21 05:03 Pulse Rhythm Regular 01/22/21 04:48 Respiratory Rate 12 01/22/21 05:03 Respiratory Effort Non-Labored 01/22/21 04:48 Respiratory Depth Normal 01/22/21 04:48 Respiratory Pattern Normal 01/22/21 04:48 Blood Pressure 136/83 01/22/21 04:37 Pulse Oximetry 98 01/22/21 04:37 Respiratory End-tidal CO2 37 01/20/21 13:53 Oxygen Delivery Method Room Air 01/22/21 04:37 Oxygen Flow Rate 0 01/22/21 04:37 Fraction of Inspired Oxygen (FIO2) 21 01/21/21 23:45 Pain Level 6 01/22/21 05:02 Comment 01/19/21 18:50 Intake & Output 01/21/21 01/21/21 01/22/21 11:59 23:59 11:59 Intake Total 917.333 / 1587.333 670 / 1587.333 50 / 50 Output Total 650 / 2550 1900 / 2550 800 / 800 Balance 267.333 / -962.667 -1230 / -962.667 -750 / -750 Intake: IV 677.333 / 1107.333 430 / 1107.333 50 / 50 Oral 240 / 480 240 / 480 Output: Urine 650 / 2550 1900 / 2550 800 / 800 Other: Urine Color Straw Yellow Yellow Urine Appearance Clear Clear Clear Urine Odor Normal Normal Voiding Methods Urinal Urinal Data Completed and Pending Labs on day of discharge: Labs from last 24 hours 01/22/21 01/22/21 01/22/21 15:00 05:35 05:35 WBC Pending RBC Pending Hgb Pending Hct Pending MCV Pending MCH Pending MCHC Pending RDW Pending Plt Count Pending MPV Pending Immature Gran % Neutrophils % Lymphocytes % Monocytes % Eosinophils % Basophils % Nucleated RBC % Absolute Neutrophils Absolute Lymphocytes Absolute Monocytes Absolute Eosinophils Absolute Basophils RBC Morphology Polychromasia Sodium Potassium Chloride Carbon Dioxide Anion Gap BUN Creatinine Estimated GFR/1.73 m2 Glucose Calcium C-Reactive Protein Pending Vancomycin Trough Pending 01/21/21 01/21/21 06:00 06:00 WBC 14.37 H RBC 3.41 L Hgb 9.7 L Hct 29.9 L MCV 87.7 MCH 28.4 MCHC 32.4 RDW 13.4 Plt Count 297 MPV 9.8 Immature Gran % 0.8 Neutrophils % 75.1 Lymphocytes % 13.0 Monocytes % 10.6 Eosinophils % 0.3 Basophils % 0.2 Nucleated RBC % 0 Absolute Neutrophils 10.79 H Absolute Lymphocytes 1.87 Absolute Monocytes 1.52 H Absolute Eosinophils 0.04 Absolute Basophils 0.03 RBC Morphology See below Polychromasia Present Sodium 137 Potassium 3.9 Chloride 101 Carbon Dioxide 27.3 Anion Gap 8.7 BUN 15 Creatinine 0.8 Estimated GFR/1.73 m2 >= 60.00 Glucose 129 H Calcium 9.1 C-Reactive Protein 13.21 H Vancomycin Trough 01/20/21 11:48 Knee - Right Joint Anaerobic Culture - Pending Preliminary micro results at discharge 01/19/21 17:10 Body Fluid Culture - Preliminary Synovial - Right Knee Staphylococcus Species 01/20/21 11:48 Surgical Culture - Preliminary Knee - Right Joint Gram Positive Veronique 01/20/21 11:48 Anaerobic Culture - Pending Knee - Right Joint [facility] Medical History Acid reflux Asthma History of postoperative nausea and vomiting Hypertension Migraine Obstructive sleep apnea CPAP SLAP tear of shoulder Surgical History H/O arthroscopic knee surgery Left ACL reconstruction with patellar BTB 1997 lateral release 2000 arthroscopy 2002 History of toe surgery Right great toe tendon repair 1994 History of total left knee replacement (11/14/20) Hx of shoulder surgery S/P reconstruction of anterior cruciate ligament Left S/P tonsillectomy Status post arthroscopy of left shoulder Left SLAP tear Status post hernia repair Umbilical hernia Status post total right knee replacement (12/26/20) Tear of UCL of left elbow Kristofer Navin surgery ~2002 Tear of UCL of right elbow Kristofer Navin surgery November 1997 Social History Smoking/Tobacco Use Status: Never Smoking risk assessment performed?: Yes Alcohol Intake: never Drug use: Never Substance use type: does not use Do you feel safe at home: Yes Do you feel safe in your relationship?: Yes
[2021-01-22] MEDS: oxyCODONE-CR 10 MG TABCR PO (06:16)
[2021-01-22 06:39] LABS: HCT 29.2 % (40.0-50.0); HGB 9.4 g/dL (13.5-17.5); MCH 28.3 pg (27.0-33.0); MCHC 32.2 % (32.0-36.0); MPV 9.7 fL (8.0-11.0); Platelet Count 290 10^3/uL (130-400); RBC 3.32 10^6/uL (4.36-5.78); RDW 13.5 % (11.8-14.1); RDW-SD 43.9 fL; WBC 13.15 10^3/uL (4.4-10.8)
[2021-01-22] MEDS: Pantoprazole 40 MG TABCR PO (08:16)
[2021-01-22] MEDS: Aspirin E.C. 81 MG TABEC PO (08:16)
[2021-01-22] MEDS: rifAMPin 300 MG CAP PO (08:17)
[2021-01-22] MEDS: Acetaminophen 500 MG TAB 1000 MG PO ×2 (08:17→14:29)
[2021-01-22] MEDS: amLODIPine 10 MG TAB PO (08:17)
[2021-01-22 08:38] VITALS: BP 147/80; PULSE 85; RESP 16; TEMP 37; O2SAT 98
--- NOTE | 2021-01-22 09:23 | PT.INIE ---
Date of service: 01/22/21 Time of Service: 09:23 PT Notes Visit Reasons: INFECTED TKA Physical Therapy Inpatient Initial Evaluation Date: 01/22/2021 Referring Doctor: Mikel Garcia MD PT Orders: PT CONSULT: Status post Ortho surgery. Status post right TKA washout for infection, remote history of left TKA. Precautions: WBAT on right LE with AD. Per verbal instruction of orthopod today, no bending at the knee past 90 degrees. Knee immobilizer on when out of bed. Patient Profile/Admitting Diagnosis: Ravin is a 50-year-old male admitted for right prosthetic knee infection and is status post right knee irrigation debridement with synovectomy, antibiotic bead placement, and polyethylene exchange on postoperative day 2. He is status post right total knee arthroplasty on 12/26/2020. He is also status post left TKA on 11/09/2020. PMHX: Medical History Acid reflux Asthma History of postoperative nausea and vomiting Hypertension Migraine Obstructive sleep apnea CPAP SLAP tear of shoulder Surgical History H/O arthroscopic knee surgery Left ACL reconstruction with patellar BTB 1998 lateral release 2000 arthroscopy 2002 History of toe surgery Right great toe tendon repair 1994 History of total left knee replacement (11/14/20) Hx of shoulder surgery S/P reconstruction of anterior cruciate ligament Left S/P tonsillectomy Status post arthroscopy of left shoulder Left SLAP tear Status post hernia repair Umbilical hernia Status post total right knee replacement (12/26/20) Tear of UCL of left elbow Kristofer Navin surgery ~2002 Tear of UCL of right elbow Kristofer Navin surgery November 1997 Objective: General Observation: Supine in bed. Wound VAC to right knee. Cryocuff to R LE. TEDS on L leg. Mental Status: Alert and oriented x4 Pain: 0/10 in the R knee ROM: Right Lower Extremity: Hip flexion WFL. Hip abduction WFL. Knee flexion limited to -30 to 60 degrees (cautined by ortho not to go past 90 degrees). Knee extension -30 degrees. Ankle dorsiflexion WFL. Ankle plantarflexion WFL. Able to perform straight leg raises with -25 degree extension lag x 10. Strength: Right Lower Extremity: Hip flexors 4/5. Hip abductors 4/5. Knee flexors 3-/5. Knee extensors 3-/5. Ankle dorsiflexors 4/5. Ankle plantarflexors 5/5. Sensation: Intact as to pain and light light touch in bilateral lower extremities Bed Mobility/Transfers: Supine to sit minimal assist to R LE Sit to stand supervision Stand to sit supervision Bed to chair supervision Gait: Guided patient through level surface ambulation of 200 feet using front wheeled walker using step-to gait pattern with weight bearing as tolerated on the right LE. Stand by assist provided by PT. Minimal verbal cues provided for optimal posturing and correct gait pattern. Cautious about bending R knee as advised by orthopod. Balance: Static Sitting: Normal Dynamic Sitting: Normal Static Standing: Good Dynamic Standing: Fair Special Tests: Mobility Limitations Standardized Measure [facility] 6 clicks Basic Mobility Inpatient Short Form: Raw Score: 19 CMS Score: 42% deficit Informed Consent/Education: Patient instructed in purpose of PT consult. Has already received packet containing TKA exercise protocol previously. Has been advised to continue with same set of exercises as before. Assessment: Ravin requires the use of front wheeled walker and knee immobilizer for all mobility ADL performance in order to maximize safety, minimize pain level, and reduce fall risk at home. He will have the support of his family as he recovers at home. Will require use of leg keyboarding clerk for independent bed mobility performance. May benefit from outpatient PT services in order to maximize strength and range of motion gains that will allow full return to ADL performance and vocational activity participation. Patient presents with clinical signs and symptoms consistent with current/admitting diagnoses that have resulted to mobility limitations, gait instability, generalized weakness, and impairment of motor control as demonstrated by the following impairment level findings: 1. Decreased strength to right knee major muscle groups 2. Impaired standing balance 3. Limitation of joint range of motion in right knee (range restricted by orthopod) Impairments are contributing to the following functional limitations: 1. Inability to safely ambulate without assistive device 2. Increase completion time for mobility ADL performance 3. Increased fall risk Patient is assessed as a 50273 moderate complexity based on the following: History: 50-year-old male with impairment level findings, functional limitations, and past medical history as indicated above Examination: Demonstrable impairment in strength, balance, and mobility level with underlying impairments and functional limitations as documented above Presentation: Stable Decision Makin moderate complexity Goals X1 week 1. Supine-Sit independent 2. Sit-Supine independent 3. Sit-Stand independent 4. Stand-Sit independent 5. Bed-Chair independent 6. Chair-Bed independent 7. Independent gait on level surface with use of front wheeled walker for at least 500 feet without report of pain nor dyspnea 8. Independent stair negotiation while holding onto B rails for at least 5 steps without report of pain nor dyspnea 9. Independent with home exercise program 10. Good static and dynamic standing balance/tolerance Plan of Care/Treatment Plan: 1-2x/day, 7 days/week x 1 week. Plan of care has been reviewed with the [facility] providing the service under Physical Therapy direction. Initiate Physical Therapy intervention for strengthening, bed mobility, transfers, gait, stairs, balance training, and use of assistive device. DISCHARGE RECOMMENDATIONS: Home when medically cleared by orthopedic surgeon. May benefit from outpatient PT services in order to maximize R knee muscle group strength and range of motion gains that will allow full return to ADL performance and vocational activity participation. Needs the use of FWW to maximize indepedence at home. TREATMENT CODE/TIME: 86351 x 25 minutes, 25643 x 17 minutes beginning at 9:23 PM. Thank you for the opportunity to participate in the care of this patient. Mary Voss PT, DPT, CLT [facility] [place], [place]
--- NOTE | 2021-01-22 11:50 | CMDISCH_ITS ---
LACE Index Scoring Tool - Questions: Length of Stay (in days): 3 Acuity (Admit via E.D.?): Yes E.D. Visits: 0 - Answers: Total Score: 6 Risk of Readmission: Low Risk Care Management Discharge Reason for Hospitalization: Infected TKA Discharge Plan: Ravin will discharge home when ready per MD. He will follow up with his PCP and plan of care as prescribed including outpatient PT and [facility] for daily IV ABX. SUDHIR coordinated MD orders to [facility]; Leora Gonzalez#[phone]. Ravin will transport with his . Patient/Family Education Needs: Review discharge instructions, discuss Ask Me Three. Services Needed at Discharge: Infusion Therapy ([facility] outpatient )
[2021-01-22] MEDS: cefTRIAXone 2 GM/50 ML BAG IVPB (13:06)
--- NOTE | 2021-01-22 13:49 | PT.INTREAT ---
Date of service: 01/22/21 Time of Service: 12:30 PT Notes Visit Reasons: INFECTED TKA Inpatient Physical Therapy Treatment Note [facility] Date: 01/22/2021 PRECAUTIONS: WBAT R SUBJECTIVE: Ravin is pleasant and agreeable to participating in PT. He reports that his only concern is negotiating the stairs without using crutches due to his PICC line. OBJECTIVE: Knee immobilizer education, donning/doffing PAIN: Patient c/o R knee area discomfort with bed mobility. BED MOBILITY/TRANSFERS Supine-sit: I with HOB flat with leg cleaning machine operator Sit-supine: I with HOB flat with leg cleaning machine operator Sit-stand: I Stand-sit: I Bed-Chair: S Chair-bed: S GAIT Assistive Device: FWW Weight bearing: WBAT R Assist: S Distance: 100' x2 Deviation: Knee immobilizer STAIRS: Up/down 3x4 and 2x6 using U rail/SPC and a step-to pattern with supervision; up/down 3x4 and 2x6 using SPC/U axillary crutch and a step-to pattern with supervision TOILETING: Patient toileted independently ASSESSMENT: Patient tolerated session well, with minimal c/o R knee discomfort with bed mobility. He was able to tolerate stair training, well, requiring supervision only. PLAN: Patient to follow up with outpatient PT upon discharge. TREATMENT CODE/TIME: 40 minutes; 59607 x2 (12:30)
--- NOTE | 2021-01-25 16:00 | INDS_ITS ---
Date of service: 01/25/21 PT Notes Visit Reasons: INFECTED TKA Physical Therapy Inpatient Discharge Summary Date: 01/25/2021 Dates of Service: 01/22/2021 only This is a clinical summary of care provided on the duration of dates listed above. No charge was made in the completion of this documentation. Referring Doctor: Mikel Garcia MD PT Orders: PT CONSULT: Status post Ortho surgery. Status post right TKA washout for infection, remote history of left TKA. Precautions: WBAT on right LE with AD. Per verbal instruction of orthopod today, no bending at the knee past 90 degrees. Knee immobilizer on when out of bed. Patient Profile/Admitting Diagnosis: Ravin is a 50-year-old male admitted for right prosthetic knee infection and is status post right knee irrigation debridement with synovectomy, antibiotic bead placement, and polyethylene exchange on postoperative day 2. He is status post right total knee arthroplasty on 12/26/2020. He is also status post left TKA on 11/09/2020. PMHX: Medical History Acid reflux Asthma History of postoperative nausea and vomiting Hypertension Migraine Obstructive sleep apnea CPAP SLAP tear of shoulder Surgical History H/O arthroscopic knee surgery Left ACL reconstruction with patellar BTB 1997 lateral release 2000 arthroscopy 2002 History of toe surgery Right great toe tendon repair 1994 History of total left knee replacement (11/14/20) Hx of shoulder surgery S/P reconstruction of anterior cruciate ligament Left S/P tonsillectomy Status post arthroscopy of left shoulder Left SLAP tear Status post hernia repair Umbilical hernia Status post total right knee replacement (12/26/20) Tear of UCL of left elbow Kristofer Navin surgery ~2002 Tear of UCL of right elbow Kristofer Navin surgery November 1997 Objective: General Observation: NT. See most recent [employer] notes. Mental Status: NT. See most recent [employer] notes. Pain: NT. See most recent [employer] notes. ROM: Right Lower Extremity: Hip flexion WFL. Hip abduction WFL. Knee flexion limited to -30 to 60 degrees (cautined by ortho not to go past 90 degrees). Knee extension -30 degrees. Ankle dorsiflexion WFL. Ankle plantarflexion WFL. Able to perform straight leg raises with -25 degree extension lag x 10. Strength: Right Lower Extremity: Hip flexors 4/5. Hip abductors 4/5. Knee flexors 3-/5. Knee extensors 3-/5. Ankle dorsiflexors 4/5. Ankle plantarflexors 5/5. Sensation: Intact as to pain and light light touch in bilateral lower extremities Bed Mobility/Transfers: Supine to sit independent Sit to stand independent Stand to sit independent Bed to chair independent Gait: Guided patient through level surface ambulation of 100 feet x 2 using front wheeled walker using step-to gait pattern with weight bearing as tolerated on the right LE with knee immobiliizer on. Stand by assist provided by PT. Minimal verbal cues provided for optimal posturing and correct gait pattern. Balance: Static Sitting: Normal Dynamic Sitting: Normal Static Standing: Good Dynamic Standing: Fair Assessment: Ravin continues to require the use of front wheeled walker and knee immobilizer for all mobility ADL performance in order to maximize safety, minimize pain level, and reduce fall risk at home. He will have the support of his family as he recovers at home. Will require use of leg almond blancher hand for ind ependent bed mobility performance. May benefit from outpatient PT services in order to maximize strength and range of motion gains that will allow full return to ADL performance and vocational activity participation. Patient continues to present with clinical signs and symptoms consistent with current/admitting diagnoses that have resulted to mobility limitations, gait instability, generalized weakness, and impairment of motor control as demonstrated by the following impairment level findings: 1. Decreased strength to right knee major muscle groups 2. Impaired standing balance 3. Limitation of joint range of motion in right knee (range restricted by orthopod's order) Impairments are continuing to contribute to the following functional limitations: 1. Inability to safely ambulate without assistive device 2. Increase completion time for mobility ADL performance 3. Increased fall risk Goals X1 week 1. Supine-Sit independent MET 2. Sit-Supine independent MET 3. Sit-Stand independent MET 4. Stand-Sit independent MET 5. Bed-Chair independent NOT MET 6. Chair-Bed independent NOT MET 7. Independent gait on level surface with use of front wheeled walker for at least 500 feet without report of pain nor dyspnea NOT MET 8. Independent stair negotiation while holding onto B rails for at least 5 steps without report of pain nor dyspnea NOT MET 9. Independent with home exercise program NOT MET 10. Good static and dynamic standing balance/tolerance NOT MET DISCHARGE RECOMMENDATIONS: Home when medically cleared by orthopedic surgeon. May benefit from outpatient PT services in order to maximize R knee muscle group strength and range of motion gains that will allow full return to ADL performance and vocational activity participation. Needs the use of FWW to maximize indepedence at home. TREATMENT CODE/TIME: NM Thank you for the opportunity to participate in the care of this patient. Mary Voss PT, DPT, CLT [facility] [place], [place]
== END 2021-01-22 15:14 | disposition home or self-care (01) | DRG 467 ==
PROVIDERS: Admitting Provider Student in an Organized Health Care Education/Training Program; PCP Nurse Practitioner Family; Visit Provider Student in an Organized Health Care Education/Training Program
PROC: 0SPC0JZ Removal of Synthetic Substitute from Right Knee Joint, Open Approach (ICD-10-PCS; CPT 27486; principal; 2021-01-20 09:45)
DX: T84.53XA Infection and inflammatory reaction due to internal right knee prosthesis, initial encounter (principal); D62 Acute posthemorrhagic anemia; J45.909 Unspecified asthma, uncomplicated; G47.33 Obstructive sleep apnea (adult) (pediatric); I10 Essential (primary) hypertension; K21.9 Gastro-esophageal reflux disease without esophagitis; G43.909 Migraine, unspecified, not intractable, without status migrainosus; Z96.652 Presence of left artificial knee joint; Z20.822 Contact with and (suspected) exposure to COVID-19; B95.61 Methicillin susceptible Staphylococcus aureus infection as the cause of diseases classified elsewhere
CPT/HCPCS: 27486; 36415; 36573; 80048; 85027; 87040; 87077; 87635; 97162; 97530; 99223; 80202; 85025; 86140; 87070; 87075; 87186; 87205; 89051; 94660; J0690; J1100; J1885; J2001; J2405; J2704; J3470

== ENCOUNTER 2022-01-31 11:15 | Outpatient (CLI) | payer OTHER, SELFPAY ==
--- NOTE | 2022-01-31 10:45 | DI.RAD_ITS ---
Exam(s) XR KNEE RT 2V AP,LAT EXAM: XR KNEE RT 2V AP,LAT CLINICAL HISTORY: ANNUAL F/U R TKA. TECHNIQUE: 2D digital imaging was performed. COMPARISON: CR XR STANDING ALIGNMENT from 11/29/2020 CR XR KNEE RT 1V from 01/10/2021 CR XR STANDING ALIGNMENT from 01/10/2021 CR XR KNEE LT 2V AP,LAT from 01/31/2022 FINDINGS: 3 views There is a right knee prosthesis now in place, not evident on the November 2020 images. The femoral component appears satisfactory. There is a notch lucent area in the lateral tibial plate au subjacent to the tibial plateau component, possibly significant. No radiographic evidence of oste omyelitis. IMPRESSION: DATA REPOSITORY: RADIATION DOSE DELIVERED:
--- NOTE | 2022-01-31 10:45 | DI.RAD_ITS ---
Exam(s) XR KNEE LT 2V AP,LAT EXAM: XR KNEE LT 2V AP,LAT CLINICAL HISTORY: ANNUAL F/U L TKA. TECHNIQUE: 2D digital imaging was performed. COMPARISON: CR XR KNEE RT 1V from 01/10/2021 CR XR STANDING ALIGNMENT from 01/10/2021 FINDINGS: Two views Position alignment of the components of the left knee prosthesis remain stable with no fracture or lo osening evident. Previously described pre-existing AP orientated screw in the proximal tibia and lat eral to medial orientated screw in the distal femoral metaphysis also appear stable. No evidence of hardware loosening and no radiographic evidence of osteomyelitis. Bone density is normal. IMPRESSION: DATA REPOSITORY: RADIATION DOSE DELIVERED:
== END 2022-01-31 11:16 | disposition home or self-care (01) ==
LOC: DIORS 11:15
PROVIDERS: PCP Nurse Practitioner Family; Referring Provider Nurse Practitioner Family; Visit Provider Student in an Organized Health Care Education/Training Program
DX: Z96.653 Presence of artificial knee joint, bilateral (principal); Z47.1 Aftercare following joint replacement surgery
CPT/HCPCS: 73560

== ENCOUNTER 2023-01-30 10:00 | Outpatient (CLI) | payer BC, SELFPAY ==
--- NOTE | 2023-01-30 09:45 | DI.RAD_ITS ---
Exam(s) XR KNEE LT 2V AP,LAT EXAM: XR KNEE LT 2V AP,LAT CLINICAL HISTORY: annual f/u L TKA. TECHNIQUE: 2D digital imaging was performed. COMPARISON: CR XR KNEE LT 2V AP,LAT from 01/31/2022 CR XR KNEE RT 2V AP,LAT from 01/31/2022 CR XR KNEE RT 2V AP,LAT from 01/30/2023 FINDINGS: Two views: Stable appearance and alignment components of the left knee prosthesis. No fracture loosening eviden t. Again noted is evidence of prior proceeding ACL surgery. IMPRESSION: Satisfactory stable appearance. DATA REPOSITORY: RADIATION DOSE DELIVERED:
--- NOTE | 2023-01-30 09:45 | DI.RAD_ITS ---
Exam(s) XR KNEE RT 2V AP,LAT EXAM: XR KNEE RT 2V AP,LAT CLINICAL HISTORY: ANNUAL F/U R TKA. TECHNIQUE: 2D digital imaging was performed. COMPARISON: CR XR KNEE RT 2V AP,LAT from 01/31/2022 FINDINGS: Views: There is continued stable appearance and alignment of the prosthesis. No fracture or loosening evide nt. IMPRESSION: Satisfactory stable appearance. DATA REPOSITORY: RADIATION DOSE DELIVERED:
== END 2023-01-30 10:01 | disposition home or self-care (01) ==
LOC: DIORS 10:00
PROVIDERS: PCP Physician Assistant; Referring Provider Physician Assistant; Visit Provider Student in an Organized Health Care Education/Training Program
DX: Z96.652 Presence of left artificial knee joint (principal); Z96.651 Presence of right artificial knee joint; Z48.89 Encounter for other specified surgical aftercare
CPT/HCPCS: 73560

== ENCOUNTER 2023-06-09 11:50 | Outpatient (REF) | payer BC, SELFPAY ==
[2023-06-09 17:02] LABS: Hemoglobin A1C 5.6 % (<5.7)
[2023-06-09 17:26] LABS: ALT 38 U/L (16-63); AST 17 U/L (15-37); Albumin 4.2 g/dL (3.4-5.0); Alkaline Phosphatase 78 U/L (46-116); Anion Gap 9.1 mmol/L (3-11); BUN 19 mg/dL (7-18); Bilirubin, Total 0.9 mg/dL (0.2-1.0); CO2 27.9 mmol/L (21.0-32.0); CREATININE 0.9 mg/dL (0.70-1.30); Calcium 9.5 mg/dL (8.5-10.1); Calculated LDL 144 mg/dL (<100); Chloride 100 mmol/L (98-107); Cholesterol 227 mg/dL (<200); Estimated GFR 102.12 (mL/min/1.73m2); Glucose 106 mg/dL (74-106); HDL Cholesterol 48 mg/dL (40-60); Potassium 3.5 mmol/L (3.5-5.1); Sodium 137 mmol/L (136-145); Total Protein 7.6 g/dL (6.4-8.2); Triglyceride 175 mg/dL (<150)
[2023-06-10 18:26] LABS: PSA, Screening 0.7 ng/mL (<=3.5)
== END 2023-06-09 11:51 | disposition home or self-care (01) ==
LOC: NCHCN 11:50
PROVIDERS: PCP Physician Assistant; Visit Provider Physician Assistant
DX: I10 Essential (primary) hypertension (principal); Z12.5 Encounter for screening for malignant neoplasm of prostate; R79.89 Other specified abnormal findings of blood chemistry
CPT/HCPCS: 80053; 80061; 84153; 83036

== ENCOUNTER → 2024-02-03 03:14 | Outpatient (CLI) | payer BC, SELFPAY ==
--- NOTE | 2024-02-03 07:30 | DI.NM_ITS ---
Exam(s) NM BONE SCAN 3 PHASE EXAM: NM BONE SCAN 3 PHASE CLINICAL HISTORY: pain, ? loosening,T84.84xa. TECHNIQUE: Injected Dose: 24.9 mCi Tc-99m MDP COMPARISON: CR XR KNEE LT 2V AP,LAT from 01/30/2023 CR XR KNEE RT 2V AP,LAT from 01/30/[address] LOWER EXTREMITY RT WO from 02/03/2024 FINDINGS: Perfusion: Symmetric. Blood Pool: Symmetric. Delayed: There are bilateral total knee prostheses. There is mildly increased activity seen at the r ight medial tibial plateau, beneath the level of the prosthesis. There is minimally increased activi ty on the left side. The findings suggest loosening of the tibial component on the right. Other are as of increased activity are seen in the shoulders could, wrists and feet, presumably degenerative. Spine and pelvic labeling are normal. IMPRESSION: Increased activity in the right medial tibial plateau could indicate loosening of the tibial componen t of the right knee prosthesis. DATA REPOSITORY:
--- NOTE | 2024-02-03 07:30 | DI.CT_ITS ---
Exam(s) CT LOWER EXTREMITY RT WO EXAM: CT LOWER EXTREMITY RT WO CLINICAL HISTORY: pain, ?loosening,T84.84xa. TECHNIQUE: Imaging Protocol: Axial computed tomography images with coronal and sagittal reformatted images were created and reviewed. CONTRAST MATERIAL: Noncontrast COMPARISON: CR XR KNEE LT 1V from 10/15/2020 CR XR KNEE RT 1V from 10/15/2020 CR XR STANDING ALIGNMENT from 11/29/2020 CR XR KNEE RT 1V from 01/10/2021 CR XR STANDING ALIGNMENT from 01/10/2021 CR XR KNEE RT 2V AP,LAT from 01/31/2022 CR XR KNEE LT 2V AP,LAT from 01/31/2022 CR XR KNEE LT 2V AP,LAT from 01/30/2023 CR XR KNEE RT 2V AP,LAT from 01/30/2023 FINDINGS: Bones: A total knee prosthesis is in place which creates significant artifact. There is no evidence of fracture or dislocation. There is a small area of lucency seen beneath the lateral aspect of the tibial component of the prost hesis which appears unchanged from prior plain films. Joints: The joint effusion is visible. There is synovial thickening. Soft Tissues: Calcifications are again noted superior to the patella. IMPRESSION: No findings to suggest loosening. Stable area of lucency at the lateral tibial plateau. Joint effusion with synovial thickening. RADIATION DOSE DELIVERED: 266.22mGy.cm Total DLP DATA REPOSITORY: All CT scans at this facility are submitted to the National Radiology Data Registry (NRDR) Dose Index Registry (DIR) with the [employer] (ACR). RADIATION OPTIMIZATION: All CT scans at this facility use at least one of these dose optimization te chniques: automated exposure control; mA and/or kV adjustment per patient size (includes targeted exa ms where dose is matched to clinical indication); or iterative reconstruction.
[2024-02-03 11:28] LABS: ESR 5 mm/hr (0-20)
== END ==
PROVIDERS: PCP Physician Assistant; Visit Provider Student in an Organized Health Care Education/Training Program
DX: T84.84XA Pain due to internal orthopedic prosthetic devices, implants and grafts, initial encounter (principal); M17.0 Bilateral primary osteoarthritis of knee; Z98.890 Other specified postprocedural states
CPT/HCPCS: 85652; 73700; 78315; 86140

== ENCOUNTER 2024-02-03 12:36 | Outpatient (CLI) | payer BC, SELFPAY ==
[2024-02-03 15:54] LABS: C-Reactive Protein 0.57 mg/dL (<or=0.5)
== END 2024-02-03 12:37 | disposition home or self-care (01) ==
LOC: LBO 12:38
PROVIDERS: PCP Physician Assistant; Visit Provider Student in an Organized Health Care Education/Training Program
DX: T84.84XA Pain due to internal orthopedic prosthetic devices, implants and grafts, initial encounter (principal); Z96.651 Presence of right artificial knee joint; Z98.890 Other specified postprocedural states
CPT/HCPCS: 36415; 86140

== ENCOUNTER 2024-02-18 16:22 | Outpatient (REF) | payer BC, SELFPAY ==
[2024-02-18 17:10] LABS: Clarity Cloudy; Source Synovial
[2024-02-18 17:11] LABS: Nucleated Cells 1063 uL (0)
[2024-02-18 17:17] LABS: Mononuclear Cells 98 %; Polynuclear Cells 2 %
== END 2024-02-18 16:23 | disposition home or self-care (01) ==
LOC: LBN 16:22
PROVIDERS: PCP Physician Assistant; Visit Provider Student in an Organized Health Care Education/Training Program
DX: T84.53XA Infection and inflammatory reaction due to internal right knee prosthesis, initial encounter (principal); Z98.890 Other specified postprocedural states
CPT/HCPCS: 87070; 87205; 89051

== ENCOUNTER 2024-03-28 03:57 | Outpatient (CLI) | payer BC, SELFPAY ==
[2024-03-28 11:51] LABS: HCT 42.9 % (40.0-50.0); MCH 29.9 pg (27.0-33.0); MCV 86 fL (80-95); MPV 9.3 fL (8.0-11.0); Platelet Count 257 10^3/uL (130-400); RBC 5.01 10^6/uL (4.36-5.78); RDW 13.2 % (11.8-14.1); RDW-SD 41.2 fL; WBC 9.11 10^3/uL (4.4-10.8)
[2024-03-28 12:19] LABS: Anion Gap 7.8 mmol/L (3-11); BUN 20 mg/dL (7-18); CO2 30.2 mmol/L (21.0-32.0); Calcium 9.3 mg/dL (8.5-10.1); Chloride 101 mmol/L (98-107); Estimated GFR 89.44 (mL/min/1.73m2); Glucose 118 mg/dL (74-106); Potassium 3.4 mmol/L (3.5-5.1); Sodium 139 mmol/L (136-145)
== END 2024-03-28 03:58 | disposition home or self-care (01) ==
LOC: LBO 03:59
PROVIDERS: PCP Physician Assistant; Visit Provider Student in an Organized Health Care Education/Training Program
DX: T84.022A Instability of internal right knee prosthesis, initial encounter (principal); Z01.818 Encounter for other preprocedural examination
CPT/HCPCS: 36415; 80048; 85027

== ENCOUNTER 2024-04-05 11:25 | Day surgery (SDC) | payer BC, SELFPAY ==
[2024-04-05] VITALS (28 sets, daily range): BP systolic 119–150; BP diastolic 75–95; PULSE 50–64; RESP 12–18; TEMP 36.1–37; O2SAT 55–99; BMI 42.5
--- NOTE | 2024-04-05 10:12 | W.PM.DS.N ---
Date of service: 04/05/24 Time of Service: 14:30 Discharge Plan Disposition Patient Disposition: Home Discharge Details Reason For Visit: Instability of right TKA Attending Provider: Mikel Garcia Primary Care Provider: Dawit Walton Home Meds and New Rx's Prescriptions: New cefadroxil 500 mg capsule 500 mg PO BID Qty: 14 0RF Rx Instructions: Take one capsule twice a day for one week acetaminophen 500 mg tablet 1,000 mg PO Q8H PRN Qty: 90 0RF Rx Instructions: Take two tablets up to every 8 hours as needed for pain aspirin 81 mg tablet,delayed release (DR/EC) 81 mg PO BID 30 Days Qty: 60 0RF celecoxib [Celebrex] 200 mg capsule 200 mg PO BID PRNQty: 60 0RF Rx Instructions: Take one tablet twice daily for pain and inflammation docusate sodium [Colace] 100 mg capsule 100 mg PO BID Qty: 30 0RF dexamethasone 4 mg tablet 4 mg PO DAILY Qty: 2 0RF Rx Instructions: Take one tablet once daily for two days gabapentin 300 mg capsule 300 mg PO QHS Qty: 14 0RF Rx Instructions: Take one tablet at bedtime pantoprazole 40 mg tablet,delayed release (DR/EC) 40 mg PO DAILY 14 Days Qty: 14 0RF oxycodone 5 mg tablet 5 mg PO Q4H PRNQty: 18 0RF Rx Instructions: Take one tablet up to every 4 hours as needed for severe postoperative pain Continued amlodipine 10 mg tablet 10 mg PO DAILY albuterol sulfate [ProAir HFA] 90 mcg/actuation HFA aerosol inhaler 2 puff inhalation Q6H PRN carvedilol 25 mg tablet 25 mg PO BID Rx Instructions: must administer with a meal/food chlorthalidone 25 mg tablet 25 mg PO DAILY magnesium glycinate 118 mg magnesium capsule 500 mg PO BID Discharge Instructions Additional Instructions: Total Knee Revision Discharge Instructions Activity: The most important activity is to walk and to work on gentle motion (both flexion and extension). You should try to take short walks a few times a day. It is important that when resting you work on keeping the knee straight. Avoid putting a pillow behind the knee as this will encourage flexion. Work on range of motion exercises as provided by Physical Therapy. - Start outpatient physical therapy within 2 weeks. - You should wear the LETICIA hose on both legs for 2 weeks. You may remove these at night. You may also use any compression sock in place of the LETICIA hose. - Utilize [employer] to review exercises, see videos on exercises and obtain basic information pertaining to your surgery and your recovery. Dressing: Remove the Darrin wrap by 2 days after your surgery and put on the LETICIA stocking given to you from the hospital. Keep the surgical dressing (underneath the DARRIN wrap) in place for at least one week. After the first week it may be removed and replaced with light gauze and tape or nothing. The wound and dressing may get wet after 3 days but avoid soaking the dressing or otherwise it will need to be changed. Many people prefer covering the dressing with cling wrap (saran wrap) to minimize it from getting soaked. If it gets wet, just pat dry. If it starts to peel off then it will need to be changed. Medications: - You should take Tylenol and anti-inflammatory Celebrex as your primary pain control medications. If the Celebrex is too expensive or not covered, please call the office for another alternative (Advil/Ibuprofen or Naproxen/Aleve) - You have been prescribed a stronger pain medication Oxycodone for breakthrough pain, take as needed as prescribed. - You have also been prescribed a stomach acid reduction agent Pantoprozole to help reduce stomach acid and reflux. - You have been prescribed Gabapentin to take at night for restlessness and nerve pain. - You will be taking Aspirin 81mg twice a day for DVT prevention unless instructed otherwise. - You have also been prescribed Decadron to take to control post-operative nausea and pain. You will start this tomorrow. - You have been prescribed an antibiotic Cefadroxil to take twice a day for one week. - If you have constipation you should take Colace (which has been prescribed) or Miralax (which is available [id number]). It takes most people 3-4 days to have a bowel movement. Follow-up: 2 weeks If you have any acute concerns or questions, please do not hesitate to contact the office at [phone]. You may contact Dr. Garcia with any questions after hours through the hospital at [phone] or on his cell phone at [phone]. Stand Alone Forms: Anesthesia Discharge Inst., Anes.Nerve Block Instructions, Jason Bhatt ([facility]) Referrals: Mikel Garcia MD [ [facility] STAFF PHYSICIAN] - 04/18/24 1:15 pm Equipment/Supplies: Walker Activity:: Elevate Remove Dressings/Wound Care:: Do Not Remove Shower/Bathe:: Cover Diet:: As Tolerated Discharge Orders Discharge Orders: Discharge Order (Routine); Ordered 04/05/24 Ordered By: Mikel Garcia DS: Summary Time Spent with Patient providing and/or coordinating discharge services: Less than 30 minutes Status at Discharge Functional status at discharge: uses cane/walker Overall status at discharge: patient is progressing back to baseline Mental Status: mental status grossly normal Speech and Movement: speech and movement normal Mood: congruent mood Affect: normal affect Quality:SDOH Health Related Social Needs: No Data to Display Exam Psych Mental Status: mental status grossly normal Speech and Movement: speech and movement normal Mood: congruent mood Affect: normal affect DS: Data Vitals/I&O Vitals and I&O: Intake & Output 04/04/24 04/04/24 04/05/24 11:59 23:59 11:59 Weight 288 lb 0.014 oz PFSH All Active Problems Instability of internal right knee prosthesis (Acute) Joint laxity of right knee (Acute) Infection of prosthetic right knee joint (Acute ~01/17/21) S/P I&D with polyexchange: 01/20/2021 Status post total right knee replacement (Acute 12/26/20) Hypertension (Chronic) History of total left knee replacement (Acute 11/14/20) Medical History History of postoperative nausea and vomiting Acid reflux Hypertension SLAP tear of shoulder Obstructive sleep apnea CPAP Asthma Migraine Surgical History Hx of shoulder surgery Tear of UCL of left elbow Kristofer Navin surgery ~2002 Tear of UCL of right elbow Kristofer Navin surgery November 1997 History of toe surgery Right great toe tendon repair 1994 S/P tonsillectomy Status post hernia repair Umbilical hernia Status post arthroscopy of left shoulder Left SLAP tear H/O arthroscopic knee surgery Left ACL reconstruction with patellar BTB 1997 lateral release 2000 arthroscopy 2002 S/P reconstruction of anterior cruciate ligament Left Social History Smoking/Tobacco Use Status: Never Smoking risk assessment performed?: Yes Alcohol Intake: never Drug use: Never Substance use type: does not use Housing: house Do you feel safe at home: Yes Do you feel safe in your relationship?: Yes Time Spent with Patient Time Spent with Patient: <45 minutes Time was spent: preparing to see the patient(eg.review tests), ordering medications,tests, procedures, referring, communicating with other health foster care social worker, indepentently interpreting results and counseling the patient
[2024-04-05] MEDS: Celecoxib 200 MG CAP 400 MG PO (11:51)
[2024-04-05] MEDS: Gabapentin 300 MG CAP PO (11:52)
[2024-04-05] MEDS: Acetaminophen 500 MG TAB 1000 MG PO (11:52)
--- NOTE | 2024-04-05 11:57 | W.ANESPRE ---
General Info Date of Service Date Performed: 04/05/24 Height: 5 ft 9 in Weight: 130.8 kg Body Mass Index (BMI): 42.5 Surgical Procedure: Operation Date: 04/05/24 13:25 Proposed Procedure Side Surgeon p Knee Total Revision, Poly Exchange or Femur Right Mikel Garcia MD Meds Allergies and Home Medications Allergies Allergy/AdvReac Type Severity Reaction Status Date / Time Cooked Barr Peppers AdvReac Severe Nausea, Uncoded 04/05/24 11:36 vomiting Home Medication Medication Instructions Recorded amlodipine 10 mg tablet 10 mg PO DAILY 10/15/20 albuterol sulfate 90 mcg/actuation 2 puff inhalation Q6H PRN 11/05/20 aerosol inhaler (ProAir HFA) carvedilol 25 mg tablet 25 mg PO BID 01/31/22 chlorthalidone 25 mg tablet 25 mg PO DAILY 01/31/22 magnesium glycinate 500 mg PO BID 03/28/24 acetaminophen 500 mg tablet 1,000 mg (2 x 500 mg) PO Q8H PRN 04/05/24 pain #90 tabs aspirin 81 mg tablet,delayed 81 mg PO BID 30 days #60 tabs 04/05/24 release celecoxib 200 mg capsule (Celebrex) 200 mg PO BID PRN #60 caps 04/05/24 dexamethasone 4 mg tablet 4 mg PO DAILY #2 tabs 04/05/24 docusate sodium 100 mg capsule 100 mg PO BID #30 caps 04/05/24 (Colace) gabapentin 300 mg capsule 300 mg PO QHS #14 caps 04/05/24 oxycodone 5 mg tablet 5 mg PO Q4H PRN #18 tabs 04/05/24 pantoprazole 40 mg tablet,delayed 40 mg PO DAILY #14 tabs 04/05/24 release Current Visit Medications: Current Medications Generic Name Dose Route Start Last Admin Trade Name Freq PRN Reason Stop Dose Admin Acetaminophen 1,000 mg 04/05/24 06:00 04/05/24 11:52 Acetaminophen 500 Mg Tab PO 04/05/24 23:59 1,000 mg PREOP EVELIN Administration Acetaminophen 1,000 mg 04/05/24 14:00 Acetaminophen 500 Mg Tab PO 05/05/24 13:59 TID EVELIN Aspirin 81 mg 04/05/24 20:00 Aspirin E.C. 81 Mg Tabec PO 05/05/24 19:59 BID EVELIN Celecoxib 400 mg 04/05/24 06:00 04/05/24 11:51 Celecoxib 200 Mg Cap PO 04/05/24 23:59 400 mg PREOP EVELIN Administration Celecoxib 200 mg 04/05/24 20:00 Celecoxib 200 Mg Cap PO 05/05/24 19:59 BID EVELIN Dexamethasone 4 mg 04/06/24 08:30 Dexamethasone 4 Mg Tab PO 04/07/24 08:31 DAILY EVELIN Docusate Sodium 100 mg 04/05/24 10:10 Docusate Sodium 100 Mg Cap PO 05/05/24 10:09 BID PRN PRN Constipation Gabapentin 300 mg 04/05/24 06:00 04/05/24 11:52 Gabapentin 300 Mg Cap PO 04/05/24 23:59 300 mg PREOP EVELIN Administration Gabapentin 300 mg 04/05/24 20:00 Gabapentin 300 Mg Cap PO 05/05/24 19:59 HS EVELIN Hydromorphone HCl 0.5 mg 04/05/24 10:10 Hydromorphone 2 Mg/Ml Syr IVP 05/05/24 10:09 Q2H PRN PRN Ringer's Solution 1,000 mls @ 80 mls/hr 04/05/24 06:00 IV 04/05/24 23:59 INFUSION EVELIN Cefazolin Sodium 3,000 mg/ 100 mls @ 200 mls/hr 04/05/24 06:00 Sodium Chloride IVPB 04/05/24 23:59 PREOP EVELIN Tranexamic Acid/Sodium Chloride 1,000 mg in 100 mls @ 600 mls/hr 04/05/24 06:00 IVPB 04/05/24 23:59 PREOP EVELIN Cefazolin Sodium/Dextrose 1 gm in 50 mls @ 100 mls/hr 04/05/24 12:00 Ancef Duplex IVPB 04/06/24 04:29 Q8H EVELIN IV Miscellaneous Supplies 1 each 04/05/24 06:00 Iv Access IV 04/05/24 23:59 DIRECTED EVELIN Ondansetron HCl 4 mg 04/05/24 10:10 Ondansetron 4 Mg/2 Ml Vial IVP 05/05/24 10:09 Q6H PRN PRN Nausea Oxycodone HCl 0 mg 04/05/24 10:10 Oxycodone 5 Mg Tab PO 05/05/24 10:09 Q3H PRN PRN Pain Pantoprazole Sodium 40 mg 04/06/24 07:30 Pantoprazole 40 Mg Tabcr PO 05/06/24 07:29 DAILY@0730 EVELIN Polyethylene Glycol 17 gm 04/05/24 10:10 Polyethylene Glycol 3350 17 Gm Packet PO 05/05/24 10:09 BID PRN PRN Constipation Sodium Chloride 0 ml 04/05/24 06:00 Normal Saline Flush 10 Ml Syr IV 04/05/24 23:59 PRN PRN Sodium Chloride 0 ml 04/05/24 06:00 Normal Saline 10 Ml Vial IJ 04/05/24 23:59 DIRECTED PRN Sterile Water 0 ml 04/05/24 06:00 Water,Injection,Sterile 10 Ml Vial IJ 04/05/24 23:59 DIRECTED PRN PFSH Active Problems Active Problems: Problem Status Onset Code 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 Joint laxity of right knee M23.8X1 Infection of prosthetic right knee joint ~01/17/21 T84.53XA Status post total right knee replacement 12/26/20 Z96.651 Hypertension I10 History of total left knee replacement 11/14/20 Z96.652 Medical History Medical History History of postoperative nausea and vomiting Acid reflux Hypertension SLAP tear of shoulder Obstructive sleep apnea CPAP Asthma Migraine Surgical History Surgical History Hx of shoulder surgery Tear of UCL of left elbow Kristofer Navin surgery ~2002 Tear of UCL of right elbow Kristofer Navin surgery November 1997 History of toe surgery Right great toe tendon repair 1994 S/P tonsillectomy Status post hernia repair Umbilical hernia Status post arthroscopy of left shoulder Left SLAP tear H/O arthroscopic knee surgery Left ACL reconstruction with patellar BTB 1997 lateral release 2000 arthroscopy 2002 S/P reconstruction of anterior cruciate ligament Left Tobacco Smoking/Tobacco Use Status: Never Alcohol Alcohol Intake: never Substance Use Substance use: Never Substance use type: does not use Vital Signs and Lab Results Vital Signs Most Recent Vital Signs in EMR: Most Recent Vital Signs Temp Pulse Resp BP Pulse Ox 36.2 C L 63 16 150/77 H 97 04/05/24 11:27 04/05/24 11:27 04/05/24 11:27 04/05/24 11:27 04/05/24 11:27 Lab Results Blood Type / Crossmatch: No Data to Display Complete Blood Count: White Blood Count 9.11 10^3/uL (4.4-10.8) 03/28/24 11:20 Red Blood Count 5.01 10^6/uL (4.36-5.78) 03/28/24 11:20 Hemoglobin 15.0 g/dL (13.5-17.5) 03/28/24 11:20 Hematocrit 42.9 % (40.0-50.0) 03/28/24 11:20 Platelet Count 257 10^3/uL (130-400) 03/28/24 11:20 Complete Metabolic Panel: Sodium 139 mmol/L (136-145) 03/28/24 11:20 Potassium 3.4 mmol/L (3.5-5.1) L 03/28/24 11:20 Chloride 101 mmol/L (98-107) 03/28/24 11:20 Carbon Dioxide 30.2 mmol/L (21.0-32.0) 03/28/24 11:20 BUN 20 mg/dL (7-18) H 03/28/24 11:20 Creatinine 1.0 mg/dL (0.70-1.30) 03/28/24 11:20 Est GFR (CKD-EPI 2020) 89.44 (mL/min/1.73m2) 03/28/24 11:20 Calcium 9.3 mg/dL (8.5-10.1) 03/28/24 11:20 Glucose 118 mg/dL (74-106) H 03/28/24 11:20 Liver Function Panel: No Data to Display Coagulation Panel: No Data to Display Cardiac Panel: No Data to Display Arterial Blood Gas: No Data to Display Venous Blood Gas: No Data to Display Pancreas Panel: No Data to Display Thyroid Panel: No Data to Display Infectious Disease: No Data to Display Blood Cultures: No Data to Display Toxicology Panel: No Data to Display Anesthesia Assessment and Plan Anesthesia History Personal History: PONV Family History: No Family History of Anesthesia Complications Exercise Tolerance Exercise Tolerance: Metabolic Equivalents>4 Pertinent Negatives Pertinent Negatives: No Symptoms of GERD, No Major Cardiovascular Symptoms or Complaints, No Major Pulmonary Symptoms or Complaints and No History of CVA/TIA Cardiac & Pulmonary Exam Cardiac Exam: Normal S1/S2 Heart Sounds Pulmonary Exam: Clear Bilateral Breath Sounds Implantable Cardiac Device Does patient have a Pacemaker or an ICD?: No Airway Exam Known Difficult Airway: No Mallampati Class: 1 Mouth Opening: Normal (> 3cm) Thyromental Distance: Greater than 3 cm Facial Hair: Full Manzo Neck Range of Motion: Full ROM Neck Circumference: Normal Teeth Condition: Normal Dentition ASA Classification ASA Score: ASA 3 Emergency Case?: No NPO Status NPO Status: NPO Clears >2 hours, Solids >8 hours Anesthesia Plan Resuscitation Status: Full Code Anesthesia Technique: Spinal Anesthesia Airway Planned: Natural Airway Pain Management: Surgeon and patient request nerve block Monitors Used: Standard Monitors
[2024-04-05] MEDS: Lactated Ringers 1,000 ML 80 ML IV (12:04)
--- NOTE | 2024-04-05 12:18 | W.ANESNERVE ---
Nerve Block Single Injection Procedure Date and Time Date Performed: 04/05/24 Procedure Start: 12:09 Location Where Procedure Performed Procedure Location: Day Surgery Unit Reason Performed: Postoperative Analgesia Requesting Provider: Mikel Garcia Timeout Performed Timeout Performed: Yes Monitoring Used ECG, Blood Pressure, SpO2 and See EMR for corresponding vital signs Sterility Sterility: Hand Hygiene, Surgical Cap, Surgical Mask, Sterile Gloves, Sterile Drape/Sheet and Chlorhexidine Sedation Given During Procedure Sedation Given (Indicate Dose Given): No Sedation given Patient Mental Status Patient Mental Status: Awake Nerve Block 1st Nerve Block: Laterality: Right Block Type: Adductor Canal Ultrasound Image Saved?: Yes Needle / Catheter Used: 120mm SonoPlex II Local Anesthetic Bolus (Indicate Dose Given): Lidocaine used for local infiltration of skin, Injected in 3-5ml increments after negative blood aspiration and Bupivacaine 0.25% Dose:: 15 ml Additives (Indicate Dose Given): None Ultrasound: Sterile probe cover and gel used Nerve Stimulator: Not Used Paresthesia: None Procedure Tolerated: No Complications and Patient tolerated well Procedure Outcome: Successful Performed By: Isela Saez
[2024-04-05] MEDS: ceFAZolin 3,000 MG in Normal Saline 100 ML 200 MG IVPB (12:20)
[2024-04-05] MEDS: TRANEXAMIC ACID/SOD. CHL. 1,000 MG/100 ML BAG 600 MG IVPB (12:35)
--- NOTE | 2024-04-05 14:24 | ROE_ITS ---
Date of service: 04/05/24 Time of Service: 12:40 Operative Note Operative Note DATE OF PROCEDURE: 04/05/24 PRE-OP DIAGNOSIS: Right Knee Laxity after Knee Replacement POST-OP DIAGNOSIS: same PROCEDURE: Polyethylene Exchange - Right Knee SURGEON: Mikel Garcia SPONGE CLIPPER: Guera Barron ANESTHESIA TYPE: Spinal Refer to Anesthesia Record ESTIMATED BLOOD LOSS: 50 PATHOLOGY: none sent COMPLICATIONS: None Patient was transported to: PACU Patient's condition: stable Implants: Depuy Attune 7x12mm CR,RP Poly Indications: I have seen Ravin in clinic for symptoms of knee laxity after TKA, complicated by infection. Ravin has exhausted nonoperative methods and was having significant limitations in daily function and desired better function and more stability. I discussed the technical details of a polyethylene exchange with the potential for complete revision. I explained the risks of the procedure to include, but not limited to, bleeding, infection (particularly given that he had previous infection in this knee), pain, stiffness, fracture, damage to nerves and ve ssels, damage to muscles and tendons, loosening, need for repeat procedure, blood clot and cardiopulmonary demise. Despite these risks, Ravin elected to proceed. Findings: There is notable laxity of the knee with a laterally subluxed position of the tibia when in flexion. Trialing showed that the laxity was congruent and reduced ability both anterior to posterior as well as varus and valgus with a 12 mm polyethylene. Procedure Description: Ravin was greeted in the preoperative holding area where the correct side was identified and marked. The consent was reviewed with the patient and signed. The history and physical was updated. All questions were answered. Preoperative mediacations were administered: Acetaminophen 1000mg, Celebrex 400mg, and Gabapentin 300mg. An adductor canal block was then administered by the anesthesia team in the DSU. Ravin was taken back to the operating room. A spinal anesthestic was then administered. The patient was placed into the supine position on the operating room table. Posts were placed for positioning during the procedure. All bony prominences were well padded. Prophylactic antibiotics in the form of Cefazolin were administered. 1g of Tranxemic Acid was given intravenously within 30 minutes of incision. The right leg was then prepped with Chloraprep and draped in a standard fashion with impervious stockinette and extremity drape. A second prep with Chloraprep was performed prior to placing Ioband. A timeout to confirm correct identity, side and site, procedure, allergies, anesthesia, and medical concerns was performed. With the knee in some flexion, a midline incision was made overlying the knee utilizing the previous incision. Full thickness skin flaps were raised once the extensor mechanism was encountered. These were raised medially and laterally. Any bleeding was controlled with electrocautery. Once the extensor mechanism was fully exposed, a medial parapatellar arthrotomy was performed in a flexed position making sure to fully expose the boundaries of the extensor tendon. All bleeding from the arthrotomy and the geniculate arteries was coagulated. A medial subperiosteal peel was performed with electrocautery to the midcoronal plane. An aggressive synovectomy was performed utilizing 2 Allis 2 José clamps medial, lateral, and anteriorly. There was some dense adhesions seen anteriorly. The fat pad was removed while keeping the patellar tendon protected. The anterior distal femur synovium was removed. There was gross laxity of the knee. In a flexed position the tibia laterally subluxed. This had created significant synovitis seen about the lateral side of the knee. There is some erosion of bone over the distal?posterior aspect of the lateral femoral condyle. The remainder of the femur seem to be intact and there is no gross loosening apparent. There is no gap or space between the metal component and the femoral bone. As for the tibia there is some fibrous material seen on the far medial aspect of the tibial plateau. However, the remainder the tibial plateau had adherent bone, unable to be penetrated by a [place] elevator. There is no gross signs of loosening. With the knee in flexion the polyethylene was removed. A trial polyethylene was placed starting with a 12 mm based on the amount of laxity. With this polyethylene in place the knee now had anterior posterior stability as well as varus and valgus stability at 0, 30, 90 degrees. There is some slight opening in the lateral compartment with flexion seem to be physiologic. There is no significant mismatch between extension and flexion and therefore this was determined to be sufficient. When he was brought back up into flexion. The troponin was removed and a size 7 x 12 mm CR/RP polyethylene was then inserted. The knee was reduced and brought back into extension. The knee was then washed with Surgiphor Betadine solution. This was allowed to sit in the knee for 3 minutes after which it was washed out with saline. The capsule was then reapproximated with a No. 2 Fiberwire at multiple locations. The capsule was finally closed with a No. 2 Stratafix, barbed suture. Deep tissues were then reapproximated with 0 Vicryl and 2-0 Vicryl. The skin was closed with a running 3-0 Monocryl in a subcuticular fashion. This was reinforced with skin glue. A Mepilex silver dressing was applied along with a [id number] TALIA wrap. A CryoCuff was applied. [facility] and suffering no apparent complication. Ravin has a good prognosis. Physical therapy will start today and without restrictions, weight-bearing as tolerated. Aspirin 81mg BID will be used for DVT prophylaxis.
--- NOTE | 2024-04-05 14:36 | W.ANESPOSTOP ---
Postoperative Evaluation Date, Time and Location Date Performed: 04/05/24 Time Performed: 14:32 Patient Location: PACU Vital Signs Most Recent Imported Vital Signs: Most Recent Vital Signs Temp Pulse Resp BP Pulse Ox 36.2 C L 51 L 14 125/81 99 04/05/24 14:29 04/05/24 14:25 04/05/24 14:30 04/05/24 14:25 04/05/24 14:30 Pain Score Most Recent Pain Score: Most Recent Pain Score Pain Level 0 04/05/24 14:15 Assessment Mental Status: Awake (Alert & Oriented to Patient Baseline) Airway and Respiratory Function: Patent airway with normal (patient baseline) respiratory exam Cardiovascular Function: Hemodynamically Stable Hydration Status: Adequately Hydrated Nausea & Vomiting: No Nausea or Vomiting Pain: Pain is tolerable per patient Peripheral Nerve Block: Regional nerve block not resolved at time of post operative discharge
[2024-04-05] MEDS: oxyCODONE 5 MG TAB PO (14:58)
--- NOTE | 2024-04-05 16:21 | IN_ITS ---
PT Notes Visit Reasons: Instability of right TKA Physical Therapy Inpatient Initial Evaluation Date: 04/05/2024 Referring Doctor: FARIDA Jain PT Orders: PT CONSULT: S/P Ortho Surgery Precautions: Per Dr. Garcia, WBAT on the R LE with AD. Patient Profile/Admitting Diagnosis: Ravin is a 53-year-old male with laxity of R TKA and is S/P polyethelyne exchange on postoperative day 0. He was also S/P right knee irrigation debridement with synovectomy, antibiotic bead placement, and polyethylene exchange back in 01/20/2021. He was status post R total knee arthroplasty on 12/26/2020. He was also status post L TKA on 11/09/2020. PMHX: All Active Problems Instability of internal right knee prosthesis (Acute) Joint laxity of right knee (Acute) Infection of prosthetic right knee joint (Acute ~01/17/21) S/P I&D with polyexchange: 01/20/2021 Status post total right knee replacement (Acute 12/26/20) Hypertension (Chronic) History of total left knee replacement (Acute 11/14/20) Medical History History of postoperative nausea and vomiting Acid reflux Hypertension SLAP tear of shoulder Obstructive sleep apnea CPAPAsthma Migraine Surgical History Hx of shoulder surgery Tear of UCL of left elbow Kristofer Navin surgery ~2002 Tear of UCL of right elbow Kristofer Navin surgery November 1997 History of toe surgery Right great toe tendon repair 1995S/P tonsillectomy Status post hernia repair Umbilical hernia Status post arthroscopy of left shoulder Left SLAP tearH/O arthroscopic knee surgery Left ACL reconstruction with patellar BTB 1997 lateral release 2000 arthroscopy 2002 S/P reconstruction of anterior cruciate ligament Left Subjective: 3/10 on the R knee at rest and with movement. Complained of worsening nausea at the start, subsided during ambulation activity but worsened at end of session. Nurse Savanna aware and managing. No LOB. No vomiting epsiode. Objective: General Observation: Supine in bed. Cryocuff to R knee. TEDS on L leg. Mental Status: Alert and oriented x4 Pain: 3/10 in the R knee ROM: Right Lower Extremity: Hip flexion WFL. Hip abduction WFL. Knee flexion limited to 10 to 60 degrees. Knee extension -10 degrees. Ankle dorsiflexion WFL. Ankle plantarflexion WFL. Able to perform straight leg raises with -25 degree extension lag x 10. Strength: Right Lower Extremity: Hip flexors 4/5. Hip abductors 4/5. Knee flexors 3-/5. Knee extensors 3-/5. Ankle dorsiflexors 4/5. Ankle plantarflexors 5/5. Sensation: Intact as to pain and light light touch in bilateral lower extremities Bed Mobility/Transfers: Minimal cueing provided for use of B hands as needed for support, movement sequence, AD management, and posture to reduce fall risk and minimize pain report Supine to sit stand by assist Sit to stand stand by assist Stand to sit stand by assist Bed to chair stand by assist Gait: Facilitated safe and correct performance of level surface ambulation of 150 feet using front-wheeled walker using step-to gait pattern with weight bearing as tolerated on the right LE. Stand by assist provided by PT. Minimal verbal cues provided for optimal posturing and correct gait pattern. Nurse Savanna provided wheelchair follow for safety. nausea subsided a bit during the walk but came back worse at end fo activity but no vomiting. Balance: Static Sitting: Normal Dynamic Sitting: Normal Static Standing: Good Dynamic Standing: Fair Special Tests: Mobility Limitations Standardized Measure [facility] AM-PAC 6 clicks Basic Mobility Inpatient Short Form: Raw Score: 23 CMS Score: 11% deficit Informed Consent/Education: Patient instructed in purpose of PT consult. Has already received packet containing TKA exercise protocol previously. Trained patient with correct performance of exercises below to maximize motor control, joint flexibility, soft tissue extensibility of the R knee musculature: Access Code: [email or web address] URL: [email or web address] Date: 04/05/2024 Prepared by: Mary Voss Exercises - Supine Quad Set - 1 x daily - 7 x weekly - 1 sets - 10 reps - 5 hold - Supine Heel Slide - 1 x daily - 7 x weekly - 1 sets - 10 reps - 5 hold - Supine Ankle Pumps - 1 x daily - 7 x weekly - 1 sets - 10 reps - 5 hold - Small Range Straight Leg Raise - 1 x daily - 7 x weekly - 1 sets - 10 reps - 5 hold - Seated March - 1 x daily - 7 x weekly - 1 sets - 10 reps - 5 hold Assessment: Ravin requires the use of front-wheeled walker and knee immobilizer for all mobility ADL performance in order to maximize safety, minimize pain level, and reduce fall risk at home. He will have the support of his family as he recovers at home. Will require use of leg verification manager for independent bed mobility performance. May benefit from outpatient PT services in order to maximize strength and range of motion gains that will allow full return to ADL performance and vocational activity participation. Patient presents with clinical signs and symptoms consistent with current/admitting diagnoses that have resulted to mobility limitations, gait instability, generalized weakness, and impairment of motor control as demonstrated by the following impairment level findings: 1. Decreased strength to right knee major muscle groups 2. Impaired standing balance 3. Limitation of joint range of motion in right knee (range restricted by orthopod) Impairments are contributing to the following functional limitations: 1. Inability to safely ambulate without assistive device 2. Increase completion time for mobility ADL performance 3. Increased fall risk Patient is assessed as a 89416 moderate complexity based on the following: History: 50-year-old male with impairment level findings, functional limitations, and past medical history as indicated above Examination: Demonstrable impairment in strength, balance, and mobility level with underlying impairments and functional limitations as documented above Presentation: Stable Decision Makin moderate complexity Goals X1 week N/A. PT evaluation and treatment session only for functional mobility training and HEP instruction. Plan of Care/Treatment Plan: N/A. PT evaluation and treatment session only for functional mobility training and HEP instruction. DISCHARGE RECOMMENDATIONS: Home when medically cleared by orthopedic surgeon. May benefit from outpatient PT services in order to maximize R knee muscle group strength and range of motion gains that will allow full return to ADL performance and vocational activity participation. Needs the use of FWW to maximize indepedence at home. TREATMENT CODE/TIME: 97106 x 29 minutes for 1 unit (16:21-16:50). Thank you for this referral. Please do not hesitate to contact me with any questions or concerns regarding this patient's plan of care. Please sign and return this page within 14 days if you agree with the above POC. Thank you! Referring Physician's Signature Date Thank you for the opportunity to participate in the care of this patient. Mary Voss PT, DPT, CLT [facility]
[2024-04-05] MEDS: Ondansetron 4 MG/2 ML VIAL IVP (16:49)
[2024-04-05] MEDS: Normal Saline Flush 10 ML SYR IV (16:51)
== END 2024-04-05 17:35 | disposition home or self-care (01) ==
LOC: SUR 11:25
PROVIDERS: PCP Physician Assistant; Visit Provider Student in an Organized Health Care Education/Training Program
PROC: (CPT 27487; principal; 2024-04-05 13:15)
DX: T84.022A Instability of internal right knee prosthesis, initial encounter (principal); I10 Essential (primary) hypertension; Z96.653 Presence of artificial knee joint, bilateral; K21.9 Gastro-esophageal reflux disease without esophagitis; G47.33 Obstructive sleep apnea (adult) (pediatric); J45.909 Unspecified asthma, uncomplicated
CPT/HCPCS: 27486; 76942; 97162; C1776; J0665; J0690; J1100; J2250; J2371; J2401; J2405; J2704

== ENCOUNTER 2024-12-26 12:24 | Outpatient (CLI) | payer BC, SELFPAY ==
--- NOTE | 2024-12-26 11:15 | DI.RAD_ITS ---
Exam(s) XR KNEE RT 2V AP,LAT EXAM: XR KNEE RT 2V AP,LAT CLINICAL HISTORY: F/U RIGHT KNEE REVISION TKA. TECHNIQUE: 2D digital imaging was performed. Two images were obtained. AP and lateral views were ob tained. COMPARISON: CR XR KNEE RT 2V AP,LAT from 01/30/2023 FINDINGS: BONES: There are stable post operative changes of a right total knee arthroplasty present. No fractu re or dislocation. JOINTS: The orthopedic hardware is in good position. No evidence of hardware loosening. There is st able lucency at the lateral aspect of the tibial prosthetic interface. SOFT TISSUE: Small osseous fragments are again seen superior to the patella. There is a small joint effusion. IMPRESSION: Stable right total knee arthroplasty. DATA REPOSITORY: RADIATION DOSE DELIVERED:
== END 2024-12-26 12:25 | disposition home or self-care (01) ==
LOC: DIORS 12:24
PROVIDERS: PCP Physician Assistant; Visit Provider Student in an Organized Health Care Education/Training Program
DX: M23.8X1 Other internal derangements of right knee (principal)
CPT/HCPCS: 73560

== ENCOUNTER 2025-08-09 07:00 | Inpatient (IN) | payer BC, SELFPAY ==
[2025-08-09] VITALS (35 sets, daily range): BP systolic 119–162; BP diastolic 55–97; PULSE 52–88; RESP 7–20; TEMP 36.2–36.8; O2SAT 90–100; BMI 45.4
--- NOTE | 2025-08-09 | DI.RAD_ITS ---
Exam(s) XR KNEE RT 2V AP,LAT EXAM: XR KNEE RT 2V AP,LAT CLINICAL HISTORY: s/p revision R TKA. TECHNIQUE: 2D digital imaging was performed. COMPARISON: CR XR KNEE RT 2V AP,LAT from 12/26/2024 FINDINGS: Two postop views There has been revision of the femoral component of the prosthesis which has been replaced with a longer stem component. This appears satisfactory position alignment. No fracture evident. The appearance of the tibial component is unchanged. IMPRESSION: Satisfactory postop appearance. DATA REPOSITORY: RADIATION DOSE DELIVERED:
[2025-08-09] MEDS: Celecoxib 200 MG CAP 400 MG PO (11:39)
[2025-08-09] MEDS: Gabapentin 300 MG CAP PO ×2 (11:39→19:57)
[2025-08-09] MEDS: Acetaminophen 500 MG TAB 1000 MG PO ×2 (11:39→19:57)
[2025-08-09] MEDS: Lactated Ringers 1,000 ML 80 ML IV (11:50)
--- NOTE | 2025-08-09 12:00 | W.ANESPRE ---
General Info Date of Service Date Performed: 08/09/25 Height: 5 ft 9 in Weight: 139.7 kg Body Mass Index (BMI): 45.4 Surgical Procedure: Operation Date: 08/09/25 12:55 Proposed Procedure Side Surgeon p Knee Total Revision, Attune Femoral, RP/PS Poly Right Mikel Garcia MD Meds Allergies and Home Medications Allergies Allergy/AdvReac Type Severity Reaction Status Date / Time Cooked Barr Peppers AdvReac Severe Nausea, Uncoded 08/09/25 11:24 vomiting Home Medication Medication Instructions Recorded amlodipine 10 mg tablet 10 mg PO HS 10/15/20 albuterol sulfate 90 mcg/actuation 2 puff inhalation Q6H PRN 11/05/20 aerosol inhaler (ProAir HFA) carvedilol 25 mg tablet 25 mg PO BID 01/31/22 magnesium glycinate 500 mg PO DAILY 07/24/25 multivitamin 1 tab PO DAILY 07/24/25 omega 4-fwv-nfu-fish oil 60 mg-90 1 cap PO DAILY 07/24/25 mg-500 mg capsule (Fish Oil) valsartan 160 1 tab PO DAILY 08/08/25 mg-hydrochlorothiazide 12.5 mg tablet Current Visit Medications: Current Medications Generic Name Dose Route Start Last Admin Trade Name Freq PRN Reason Stop Dose Admin Acetaminophen 1,000 mg 08/09/25 06:00 08/09/25 11:39 Acetaminophen 500 Mg Tab PO 08/09/25 23:59 1,000 mg PREOP EVELIN Administration Acetaminophen 1,000 mg 08/09/25 08:30 Acetaminophen 500 Mg Tab PO TID EVELIN Albuterol Sulfate 2 puff 08/09/25 07:32 Albuterol Hfa 8 Gm 60 Puff Inh IH Q6H PRN PRN Amlodipine Besylate 10 mg 08/09/25 20:00 Amlodipine 10 Mg Tab PO HS EVELIN Aspirin 81 mg 08/09/25 20:00 Aspirin E.C. 81 Mg Tabec PO BID EVELIN Carvedilol 25 mg 08/09/25 20:00 Carvedilol 25 Mg Tab PO BID EVELIN Celecoxib 400 mg 08/09/25 06:00 08/09/25 11:39 Celecoxib 200 Mg Cap PO 08/09/25 23:59 400 mg PREOP EVELIN Administration Celecoxib 200 mg 08/09/25 20:00 Celecoxib 200 Mg Cap PO BID [facility] Dexamethasone 4 mg 08/10/25 08:30 Dexamethasone 4 Mg Tab PO 08/11/25 08:31 DAILY [facility] Docusate Sodium 100 mg 08/09/25 07:34 Docusate Sodium 100 Mg Cap PO BID PRN PRN Constipation Fish Oil 1,000 mg 08/10/25 08:30 [place]-3 Fatty Acids 1000 Mg Cap PO DAILY [facility] Gabapentin 300 mg 08/09/25 06:00 08/09/25 11:39 Gabapentin 300 Mg Cap PO 08/09/25 23:59 300 mg PREOP EVELIN Administration Gabapentin 300 mg 08/09/25 20:00 Gabapentin 300 Mg Cap PO HS [facility] Hydrochlorothiazide 12.5 mg 08/10/25 08:30 Hydrochlorothiazide 12.5 Mg Tab PO QAM [facility] Ringer's Solution 1,000 mls @ 80 mls/hr 08/09/25 06:00 08/09/25 11:50 IV 08/09/25 23:59 80 mls/hr INFUSION [facility] Administration Cefazolin Sodium 3,000 mg/ 100 mls @ 200 mls/hr 08/09/25 06:00 Sodium Chloride IV 08/09/25 23:59 PREOP [facility] Tranexamic Acid/Sodium Chloride 1,000 mg in 100 mls @ 600 mls/hr 08/09/25 06:00 IVPB 08/09/25 23:59 PREOP [facility] Cefazolin Sodium/Dextrose 1 gm in 50 mls @ 100 mls/hr 08/09/25 16:00 Ancef Duplex IVPB Q8H [facility] IV Miscellaneous Supplies 1 each 08/09/25 06:00 Iv Access IV 08/09/25 23:59 DIRECTED [facility] Multivitamins 1 tab 08/10/25 08:30 Multivitamin Tab PO DAILY [facility] Ondansetron HCl 4 mg 08/09/25 07:34 Ondansetron 4 Mg/2 Ml Vial IVP Q6H PRN PRN Nausea Oxycodone HCl 0 mg 08/09/25 07:34 Oxycodone 5 Mg Tab PO Q3H PRN PRN Pain Pantoprazole Sodium 40 mg 08/10/25 07:30 Pantoprazole 40 Mg Tabcr PO DAILY@0730 [facility] Pt's Own Magnesium 1 each 08/10/25 08:30 Glycinate 500 Mg PO Tablet DAILY [facility] Polyethylene Glycol 17 gm 08/09/25 07:34 Polyethylene Glycol 3350 17 Gm Packet PO BID PRN PRN Constipation Sodium Chloride 0 ml 08/09/25 06:00 Normal Saline Flush 10 Ml Syr IV 08/09/25 23:59 PRN PRN Sodium Chloride 0 ml 08/09/25 06:00 Normal Saline 10 Ml Vial IJ 08/09/25 23:59 DIRECTED PRN Sterile Water 0 ml 08/09/25 06:00 Water,Injection,Sterile 10 Ml Vial IJ 08/09/25 23:59 DIRECTED PRN Valsartan 160 mg 08/10/25 08:30 Valsartan 80 Mg Tab PO DAILY [facility] PFSH Active Problems Active Problems: Problem Status Onset Code Joint laxity of right knee Resolved M23.8X1 History of total left knee replacement Acute 11/14/20 Z96.652 Hypertension Chronic I10 Medical History Medical History Asthma History of postoperative nausea and vomiting Acid reflux Hypertension SLAP tear of shoulder Obstructive sleep apnea CPAP Asthma Migraine Surgical History Surgical History (Updated 08/09/25 @ 11:21 by Kasandra Tuttle) S/P correction of deviated nasal septum Status post total right knee replacement (12/26/20) Infection of prosthetic right knee joint (~01/17/21) S/P I&D with polyexchange: 01/20/2021 Hx of shoulder surgery Tear of UCL of left elbow Kristofer Navin surgery ~2002 Tear of UCL of right elbow Kristofer Navin surgery November 1997 History of toe surgery Right great toe tendon repair 1994 S/P tonsillectomy Status post hernia repair Umbilical hernia Status post arthroscopy of left shoulder Left SLAP tear H/O arthroscopic knee surgery Left ACL reconstruction with patellar BTB 1998 lateral release 2000 arthroscopy 2002 S/P reconstruction of anterior cruciate ligament Left Tobacco Smoking/Tobacco Use Status: Never Passive smoking exposure: Yes Alcohol Alcohol Intake: never Substance Use Substance use: Never Substance use type: does not use Vital Signs and Lab Results Vital Signs Most Recent Vital Signs in EMR: Most Recent Vital Signs Temp Pulse Resp BP Pulse Ox 36.4 C L 53 L 17 144/97 H 97 08/09/25 10:20 08/09/25 10:20 08/09/25 10:20 08/09/25 10:20 08/09/25 10:20 Anesthesia Assessment and Plan Anesthesia History Personal History: PONV Family History: No Family History of Anesthesia Complications Exercise Tolerance Exercise Tolerance: Metabolic Equivalents>4 Pertinent Negatives Pertinent Negatives: No Symptoms of GERD, No Major Cardiovascular Symptoms or Complaints, No Major Pulmonary Symptoms or Complaints and No History of CVA/TIA Cardiac & Pulmonary Exam Cardiac Exam: Normal S1/S2 Heart Sounds Pulmonary Exam: Clear Bilateral Breath Sounds Implantable Cardiac Device Does patient have a Pacemaker or an ICD?: No Airway Exam Known Difficult Airway: No Mallampati Class: 1 Mouth Opening: Normal (> 3cm) Thyromental Distance: Greater than 3 cm Facial Hair: Full Manzo Neck Range of Motion: Full ROM Neck Circumference: Normal Teeth Condition: Normal Dentition ASA Classification ASA Score: ASA 3 Emergency Case?: No NPO Status NPO Status: NPO Clears >2 hours, Solids >8 hours Anesthesia Plan Resuscitation Status: Full Code Anesthesia Technique: Spinal Anesthesia Airway Planned: Natural Airway Pain Management: Surgeon and patient request nerve block Monitors Used: Standard Monitors
[2025-08-09] MEDS: Scopolamine 1 MG/3 DAYS PATCH TD (12:47)
--- NOTE | 2025-08-09 13:24 | ROE_ITS ---
Operative Note Operative Note PRE-OP DIAGNOSIS: Prosthetic Knee Laxity - RIGHT Knee POST-OP DIAGNOSIS: same PROCEDURE: Revision Femoral Component - Right Knee SURGEON: Mikel Garcia PICKER MACHINE OPERATOR: Oscar Good ANESTHESIA TYPE: Spinal Refer to Anesthesia Record ESTIMATED BLOOD LOSS: 400 PATHOLOGY: none sent TOURNIQUET TIME: 31 COMPLICATIONS: None Patient was transported to: PACU Patient's condition: stable Implants: FEMUR: Depuy Attune Revision CRS Femoral Component, Size 8 - 110mm Cementless Femoral Stem - Posterior Augment: 8mm Laterally and 4mm Medially POLY: Depuy Attune PS Rotating Platform, 8x12mm Indications: I have seen Ravin in clinic for symptoms of ongoing knee pain. He has a complex history about the right knee. He underwent a primary knee replacement which was complicated by a postoperative infection. Debridement and implant retention was performed along with a prolonged course of antibiotics and the infection was eradicated. He has been off antibiotics for many years now without recurrence. However, he did present with laxity about the right knee which seem to be global. Polyethylene exchange was performed last year with improvement of his symptoms. However, gradually the past year he has noticed increasing laxity of the knee, particularly in flexion where he feels that the plastic of the knee is popping in and out. His laxity was quite evident, mostly in flexion, in the clinic. While not clear as far as why he has gradual worsening of his flexion instability the instability is significant and causing potential polyethylene instability and thus needs to be corrected. Therefore, I offered revision of the femoral component with polyethylene exchange to rebalance the knee. I discussed the technical details of a revision knee replacement. I explained the risks of the procedure to include, but not limited to, bleeding, infection, p ain, stiffness, fracture, damage to nerves and vessels, damage to muscles and tendons, loosening, need for repeat procedure, blood clot and cardiopulmonary demise. Despite these risks, Ravin elected to proceed. Findings: There was some bony erosion seen around the lateral aspect of the tibia and the lateral aspect of the femur. However, there is no gross loosening of the components. The femoral component was removed although with some difficulty as it was well affixed to the bone. There was gross instability in flexion prior to the case and with the revision component posteriorized this was resolved. Procedure Description: Ravin was greeted in the preoperative holding area where the correct side was identified and marked. The consent was reviewed with the patient and signed. The history and physical was updated. All questions were answered. Preoperative medications were administered: Acetaminophen 1000mg, Celebrex 400mg, and Gabapentin 300mg. An adductor canal block was then administered by the anesthesia team in the DSU. Ravin was taken back to the operating room. A spinal anesthestic was then administered. The patient was placed into the supine position on the operating room table. A nonsterile tourniquet was placed high onto the leg. Posts were placed for positioning during the procedure. All bony prominences were well padded. Prophylactic antibiotics in the form of Cefazolin were administered. 1g of Tranxemic Acid was given intravenously within 30 minutes of incision. The right leg was then prepped with Chloraprep and draped in a standard fashion with impervious stockinette. A second prep with Chloraprep was performed prior to application of Iodine impregnated skin protection. A timeout to confirm correct identity, side and site, procedure, allergies, anesthesia, and medical concerns was performed. With the knee in some flexion, the previous midline incision was excised by making incision to both medial and lateral aspects of the previous incision. Full thickness skin flaps were raised once the extensor mechanism was encountered. These were raised medially and laterally in a full thickness fashion. Any bleeding was controlled with electrocautery. There was a dense prepatellar bursa about the anterior knee. Some this bursal tissue was r esected. Once the extensor mechanism was fully exposed, a medial parapatellar arthrotomy was performed in a flexed position. All bleeding from the arthrotomy and the geniculate arteries was coagulated. An aggressive complete synovectomy was then performed superiorly, medially, and laterally. Scarring from the fat pad and a portion of the fat pad was removed as well. The knee was then flexed up and the previous polyethylene was removed. Attention was then turned to removal of the previous implants. Starting with the femur the interface between the bone and the implant was identified. Ut ilizing a small oscillating saw as well as flexible osteotomes I went around the entirety of the femoral component to remove any remaining attachments of the component to the underlying bone. This was done sequentially in a stepwise fashion throughout. Then utilizing a bone tamp on the end of the implant as well as anteriorly, was able to remove the femoral component with minimal bone loss. There was some bone loss present around the distal–lateral aspect of the femur, likely from the previous infection. A posterior synovectomy was also performed with release of some of the scarred posterior tissues. Attention was then turned to the femur where the femoral canal was reamed by hand as well. This was ensured to be starting in a central slightly posterior position to avoid anterior notching and to increase the posterior offset. This was taken up to a size 16mm reamer. A freshening cut was made over the distal aspect of the femur removing no more than 2 mm of bone for a fresh, flat distal femur surface. This was left in position and the distal cutting device was attached. Extension and flexion gaps were then assessed. Rotation of the femoral component was set with the tibia in 90 degrees. The posterior cuts were then assessed. This showed 4 mm posterior–medial augment and an 8 mm posterior–lateral augment. The anterior and posterior chamfers were cut. The central portion of the jig was then removed and the notch was cut. Trial implants were then inserted. The knee was taken through range of motion. This showed stability with varus and valgus stress along with anterior and posterior shuck with a 12mm polyethylene insert. The trial femur was removed. The distal aspect of the femur was reamed with an 18 mm reamer to account for the size of the femoral boss. The final components, except for the polyethylene were opened on the back table. The periosteal and capsular tissues, especially posteriorly, around the knee were then systematically injected with a periarticular cocktail consisting of 200mg of Ropivacaine, 0.5mg of Epinephrine, and 30mg of Ketorolac, diluted to 100cc.. The tourniquet was then inflated to 300mmHg. The knee was thoroughly irrigated with a pulse lavage and dried. On the back table, the implants were opened. They were assembled according to core driller helper recommendations. Now with the implants opened, the cement was mixed. 2 batches of medium viscosity cement were prepared with vacuum assistance. Cement was placed onto the backside of femoral component up to the boss, below the cementless stem. Next, cement was manually impacted onto the cut surface of the distal femur. The femoral component was then inserted utilizing the femoral component for rotational control making sure no cement was on the cementless stem. This was impacted into position. Excess cement was removed. The trial polyethylene was then inserted and the leg was brought out into full extension for the duration of the cement curing process, approximately 18min. During this process attention was turned to the gutters of the knee and for all interfaces for any excess cement. While the cement was hardening, the knee was irrigated with Surgiphor Betadine solution. This was allowed to sit in the knee for 3 minutes and then it was thoroughly irrigated with saline. After the cement had finally cured, approximately 18min, the clamp was removed from the patella and the knee was taken through range of motion. A size 12mm polyethylene component provided the best range of motion and stability with less than 2mm gapping with medial and lateral stress and full extension without significant hyperextension. The patella was tracking with a no-thumbs technique. The trial poly was removed and once again the knee was checked for any loose, excess, or errant cement. The poly component was then inserted nto position after cleaning and drying the tibial tray. The capsule was then reapproximated with a No. 1 Vicryl at multiple locations. The capsule was finally closed with a No. 2 Stratafix, barbed suture. The tourniquet was then released and the arthrotomy appeared watertight without significant bleeding. Deep tissues were then reapproximated with 0 Vicryl and 2-0 Vicryl. The skin was closed with a running 3-0 Monocryl in a subcuticular fashion. This was reinforced with skin glue. A Mepilex silver dressing was applied along with a [id number] TALIA wrap. A CryoCuff was applied. Ravin was transferred to the hospital bed without difficulty an suffering no apparent complication. Ravin has a good prognosis. Physical therapy will start today and without restrictions, weight-bearing as tolerated. Aspirin 81mg BID will be used for DVT prophylaxis. Date of Procedure: 08/09/25
[2025-08-09] MEDS: ceFAZolin 3,000 MG in Normal Saline 100 ML 200 MG IV (13:25)
[2025-08-09] MEDS: TRANEXAMIC ACID/SOD. CHL. 1,000 MG/100 ML BAG 600 MG IVPB (13:35)
--- NOTE | 2025-08-09 13:56 | W.ANESNERVE ---
Nerve Block Single Injection Procedure Date and Time Date Performed: 08/09/25 Procedure Start: 13:00 Location Where Procedure Performed Procedure Location: Day Surgery Unit Reason Performed: Postoperative Analgesia Requesting Provider: Mikel Garcia Timeout Performed Timeout Performed: Yes Monitoring Used ECG, Blood Pressure, SpO2 and See EMR for corresponding vital signs Sterility Sterility: Hand Hygiene, Surgical Cap, Surgical Mask, Sterile Gloves and Chlorhexidine Sedation Given During Procedure Sedation Given (Indicate Dose Given): Versed IV Dose:: 2mg Patient Mental Status Patient Mental Status: Sedate with meaningful communication Nerve Block 1st Nerve Block: Laterality: Right Block Type: Adductor Canal Ultrasound Image Saved?: Yes Needle / Catheter Used: 120mm SonoPlex II Local Anesthetic Bolus (Indicate Dose Given): Bupivacaine 0.25% Dose:: 10ml Additives (Indicate Dose Given): None Ultrasound: Sterile probe cover and gel used Nerve Stimulator: Supplement to Ultrasound use and No twitch or parasthesia noted < 0.5 mA (< 0.8mA) Paresthesia: None Procedure Tolerated: No Complications and Patient tolerated well Procedure Outcome: Successful Performed By: Shruti Pierce Supervised By: Travis Hahn 2nd Nerve Block: Laterality: Right Block Type: Other (Anterior femoral cutaneous) Ultrasound Image Saved?: Yes Needle / Catheter Used: 120mm SonoPlex II Local Anesthetic Bolus (Indicate Dose Given): Bupivacaine 0.25% Dose:: 6ml Additives (Indicate Dose Given): None Ultrasound: Sterile probe cover and gel used Nerve Stimulator: Supplement to Ultrasound use and No twitch or parasthesia noted < 0.5 mA (< 0.6 mA) Paresthesia: None Procedure Tolerated: No Complications and Patient tolerated well Procedure Outcome: Successful Performed By: Shruti Pierce Supervised By: Travis Hahn
[2025-08-09] MEDS: EPINEPHrine 1 MG/ML AMP pres-free (13:59)
[2025-08-09] MEDS: Ketorolac 30 MG/ML VIAL (13:59)
[2025-08-09] MEDS: ROPIvacaine 0.2% 200 MG/100 ML BAG (14:00)
[2025-08-09] MEDS: Droperidol 5 MG/2 ML VIAL 0.625 MG IVP ×2 (16:59→17:14)
--- NOTE | 2025-08-09 17:10 | W.ANESPOSTOP ---
Postoperative Evaluation Date, Time and Location Date Performed: 08/09/25 Time Performed: 17:08 Patient Location: PACU Vital Signs Most Recent Imported Vital Signs: Most Recent Vital Signs Temp Pulse Resp BP Pulse Ox 36.4 C L 57 L 13 143/80 H 94 08/09/25 17:05 08/09/25 17:05 08/09/25 17:05 08/09/25 17:02 08/09/25 17:05 Pain Score Most Recent Pain Score: Most Recent Pain Score Pain Level 0 08/09/25 12:59 Assessment Mental Status: Awake (Alert & Oriented to Patient Baseline) Airway and Respiratory Function: Patent airway with normal (patient baseline) respiratory exam Cardiovascular Function: Hemodynamically Stable Hydration Status: Adequately Hydrated Nausea & Vomiting: No Nausea or Vomiting (treated with medication ) Pain: Pt. Denies Any Pain Peripheral Nerve Block: Regional nerve block not resolved at time of post operative discharge
--- NOTE | 2025-08-09 17:10 | PT.INNT ---
PT Notes Patient still intraoperative as of 4:43 PM. Will check in and perform PT IE first thing tomorrow morning, as ordered.
[2025-08-09] MEDS: Aspirin E.C. 81 MG TABEC PO (19:57)
[2025-08-09] MEDS: amLODIPine 10 MG TAB PO (19:57)
[2025-08-09] MEDS: Celecoxib 200 MG CAP PO (19:57)
[2025-08-09] MEDS: ceFAZolin 1 GM/50 ML BAG IVPB (19:58)
[2025-08-09] MEDS: Carvedilol 25 MG TAB PO (21:43)
[2025-08-09] MEDS: oxyCODONE 5 MG TAB PO (21:43)
[2025-08-10 04:00] VITALS: BP 140/75; PULSE 55; RESP 20; TEMP 36.3; O2SAT 95
[2025-08-10] MEDS: ceFAZolin 1 GM/50 ML BAG IVPB (04:05)
[2025-08-10] MEDS: oxyCODONE 5 MG TAB PO ×2 (05:08→09:26)
[2025-08-10 07:46] VITALS: BP 134/81; PULSE 59; RESP 18; TEMP 36.4; O2SAT 93
--- NOTE | 2025-08-10 08:08 | PDOC.CMIN ---
[facility] Advance [facility] Advance Directives: Do you have an Advance Directive: N 05/04/19, 11:14 AD On File at [facility]: N 05/04/19, 11:14 Date Asked 08/03/25 08/03/25, 14:34 AD Date Reviewed COLST On File at [facility] COLST Date Scanned Code Status Resuscitation Status Full Code Care Team Visit Care Team Role Provider Type Dawit Walton Primary Care Provider NON-[facility] STAFF PHYSICIAN InPatient Alejandro Jacobson Other Providers OTHER Mikel Garcia MD Admit Provider [facility] STAFF PHYSICIAN Attending Provider Social Determinants of Health Screening Social Determinants of health last assessed in clinic: 08/09/25 Will the Patient Participate in the Screening?: Yes Do you worry about having a steady place to live?: no Problems where you live: no known problems In the past 12 months, have you had to go without electric, gas, oil or water in your home?: no Has lack of transportation kept you from medical appointments or from doing things needed for daily living?: no Has anyone in your life made you feel unsafe or unsupported?: no How hard is it for you to pay for the very basics like food, housing, medical care, and heating? Would you say it is:: Not hard at all Do you want help finding or keeping work or a job?: I do not need or want help If for any reason you need help with day-to-day activities such as bathing, preparing meals, shopping, managing finances, etc., do you get the help you need?: I don’t need any help How often do you feel lonely or isolated from those around you?: Never Do you speak a language other than [place] at home?: No Does the patient want assistance with any of the above?: No PFSH All Active Problems History of total left knee replacement (Acute 11/14/20) Hypertension (Chronic) Medical History Asthma History of postoperative nausea and vomiting Acid reflux Hypertension SLAP tear of shoulder Obstructive sleep apnea CPAP Asthma Migraine Surgical History (Updated 08/09/25 @ 11:21 by Kasandra Tuttle) S/P correction of deviated nasal septum Status post total right knee replacement (12/26/20) Infection of prosthetic right knee joint (~01/17/21) S/P I&D with polyexchange: 01/20/2021 Hx of shoulder surgery Tear of UCL of left elbow Kristofer Navin surgery ~2002 Tear of UCL of right elbow Kristofer Navin surgery November 1997 History of toe surgery Right great toe tendon repair 1994 S/P tonsillectomy Status post hernia repair Umbilical hernia Status post arthroscopy of left shoulder Left SLAP tear H/O arthroscopic knee surgery Left ACL reconstruction with patellar BTB 1997 lateral release 2000 arthroscopy 2002 S/P reconstruction of anterior cruciate ligament Left Social History Smoking/Tobacco Use Status: Never Smoking risk assessment performed?: Yes Alcohol Intake: never Drug use: Never Substance use type: does not use Housing: house Additional Social history: [employer]
--- NOTE | 2025-08-10 08:21 | PDOC.CMIN ---
Date of service: 08/10/25 Time of Service: 08:21 Care Management Initial Assmt Initial Assessment Reason for Hospitalization: loose right TKR s/p revision femoral component Functional Status/Living Situation Patient Presentation: Ravin has a complex history with his right knee. He is s/p a knee replacement which was complicated by a post-op infection. This was years ago. He presented to orthopedics with a laxity about the knee. Polyethylene exchange was performed last year with improvement in his symptoms, but he has been noticing increased laxity again in that knee and he was scheduled for a knee revision. Town of Residence: [place], [place] Resides with: Spouse (Celi) Advance Directives Advance Directives: Do you have an Advance Directive: N 05/04/19, 11:14 AD On File at [facility]: N 05/04/19, 11:14 Date Asked 08/03/25 08/03/25, 14:34 AD Date Reviewed COLST On File at [facility] COLST Date Scanned Code Status Resuscitation Status Full Code Care Team Visit Care Team Role Provider Type Dawit Walton Primary Care Provider NON-[facility] STAFF PHYSICIAN InPatient Alejandro Jacobson Other Providers OTHER Mikel Garcia MD Admit Provider [facility] STAFF PHYSICIAN Attending Provider Social Determinants of Health Screening Social Determinants of health last assessed in clinic: 08/09/25 Will the Patient Participate in the Screening?: Yes Do you worry about having a steady place to live?: no Problems where you live: no known problems In the past 12 months, have you had to go without electric, gas, oil or water in your home?: no Has lack of transportation kept you from medical appointments or from doing things needed for daily living?: no Has anyone in your life made you feel unsafe or unsupported?: no How hard is it for you to pay for the very basics like food, housing, medical care, and heating? Would you say it is:: Not hard at all Do you want help finding or keeping work or a job?: I do not need or want help If for any reason you need help with day-to-day activities such as bathing, preparing meals, shopping, managing finances, etc., do you get the help you need?: I don’t need any help How often do you feel lonely or isolated from those around you?: Never Do you speak a language other than Maltese at home?: No Does the patient want assistance with any of the above?: No PFSH All Active Problems History of total left knee replacement (Acute 11/14/20) Hypertension (Chronic) Medical History Asthma History of postoperative nausea and vomiting Acid reflux Hypertension SLAP tear of shoulder Obstructive sleep apnea CPAP Asthma Migraine Surgical History (Updated 08/09/25 @ 11:21 by Kasandra Tuttle) S/P correction of deviated nasal septum Status post total right knee replacement (12/26/20) Infection of prosthetic right knee joint (~01/17/21) S/P I&D with polyexchange: 01/20/2021 Hx of shoulder surgery Tear of UCL of left elbow Kristofer Navin surgery ~2002 Tear of UCL of right elbow Kristofer Navin surgery November 1997 History of toe surgery Right great toe tendon repair 1994 S/P tonsillectomy Status post hernia repair Umbilical hernia Status post arthroscopy of left shoulder Left SLAP tear H/O arthroscopic knee surgery Left ACL reconstruction with patellar BTB 1997 lateral release 2000 arthroscopy 2002 S/P reconstruction of anterior cruciate ligament Left Social History Smoking/Tobacco Use Status: Never Smoking risk assessment performed?: Yes Alcohol Intake: never Drug use: Never Substance use type: does not use Housing: house Additional Social history: [facility]
--- NOTE | 2025-08-10 08:27 | PT.INIE ---
PT Notes Visit Reasons: loose R TKR Physical Therapy Day Surgery Initial Evaluation Date: 08/10/2025 Referring Doctor: FARIDA Gorman PT Orders: PT CONSULT: Post Op-day surgery evaluation. Precautions: WBAT RLE, standard Patient Profile/Admitting Diagnosis: Pt is a 54-year-old male who had a right TKRev 08/09/2015 with spinal anesthesia and Nerve block. PMHX: Hypertension (Chronic) History of total left knee replacement (Acute 11/14/20) Medical History (Updated 06/17/24 @ 06:05 by Mikel Garcia MD) History of postoperative nausea and vomiting Acid reflux Hypertension SLAP tear of shoulder Obstructive sleep apnea CPAPAsthma Migraine Surgical History (Updated 07/24/25 @ 14:16 by FARIDA Gorman) Status post total right knee replacement (12/26/20) Infection of prosthetic right knee joint (~01/17/21) S/P I&D with polyexchange: 01/20/2021Hx of shoulder surgery 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 Pt live in a single-family home with . Pt KATLYN is one step with no railing. Pt has a square walk-in shower, and a bathroom with hand rails near the toilet. Pt has moved his bedroom to the same floor as the entrance. Equipment Owned/DME: Pt believes they have a FWW and crutches, but is unsure if he still has them. Pt has a cane too. Subjective: Pt reported feeling well. Pt reported this was his 5th surgery on his knees, and hopes this surgery will have a good outcome. Pt reported that he has been walking w/FWW to the bathroom to use the toilet. When asked about previous surgeries, pt stated that he didn’t need an AD for long before he started to ambulate independently. Objective: General Observation: Pt just waking up when PT arrived. CPAP in place and cryocuff to his right knee Mental Status: Alert and oriented x4 able to follow instruction, Informed Consent/Education: Patient instructed in purpose of PT consult. Packet containing TKA exercise protocol has been given to patient. Education and training on initial set of exercises that can be done at home have been completed with patient. Pain: 3/10 in right knee, while resting and during ambulation ROM: Right Upper Extremity: WFL Left Upper Extremity: WFL Right Lower Extremity: WFL, Knee extension: -10 degrees while supine, Knee flexion: 110 degrees while supine. Left Lower Extremity: WFL Strength: [] Right Upper Extremity: 5/5 Left Upper Extremity: 5/5 Right Lower Extremity: Grossly 4/5. No quad lag with straight leg raise Left Lower Extremity: Grossly 5/5 Sensation: intact Bed Mobility/Transfers: Supine to sit: Independent Sit to stand: Independent Stand to sit: Independent Bed to chair: Independent w/FWW Ambulation: Pt ambulated 320 total feet. 60 feet was performed with FWW supervision, and the rest 260 feet was performed with crutches and supervision. Pt had a reciprocal walking pattern, with both AD’s, and needed verbal cueing for proper foot sequence. Stairs: Two six-inch steps and three four-inch steps supervised with railings on both sides. Pt needed cueing for proper foot sequence. Balance: Static Sitting: normal Dynamic Sitting: normal Static Standing: good Dynamic Standing: good, one UE support Special Tests: Mobility Limitations Standardized Measure [facility] AM-PAC 6 clicks Basic Mobility Inpatient Short Form: [] Raw Score: 23 CMS Score: 11.20%deficit Treatment 95801: Treatment 44054: Only RLE Quad contractions: 1x5 Glute contractions: 1x5 Ankle pumps: 1x5 Heel slides: 1x5 Single leg raise: 1x5 Stairs: Two six-inch steps and three four-inch steps supervised with railings on both sides Assessment: Pt was able to perform exercises, ambulate, and perform stairs with minimal verbal cueing. Pt pain persisted with ambulation, and when asked if he needed a second to rest, pt answered with no. Pt pain, decreased ROM, decreased strength, and decreased activity tolerance increased pt completion time for ADL’s. Pt will be sent home for 2 weeks with HEP until follow up appointment, then Pt will start outpatient PT. Because the pt is driven to get better, has a good support system with his , and a home environment to help the pt thrive, Prognosis is good Patient presents with clinical signs and symptoms consistent with current/admitting diagnoses that have resulted to mobility limitations, gait instability, generalized weakness, and impairment of motor control as demonstrated by the following impairment level findings: 1. Decreased strength to right knee major muscle group 2. Impaired standing/dynamic balance 3. Limitation of joint range of motion in right knee 4. Decreased activity tolerance 5. Pain right knee with ambulation/stairs Impairments are contributing to the following functional limitations: 1. Inability to safely ambulate without assistive device 2. Increase completion time for mobility ADL performance 3. Increased fall risk 4. Decreased ability to perform stairs without pain. Patient is assessed as a low complexity based on the following: History: 54-year-old male with impairment level findings, functional limitations, and past medical history as indicated above Examination: Demonstrable impairment in strength, balance, and mobility level with underlying impairments and functional limitations as documented above Presentation: Evolving Decision Making: Low Goals: N/A. PT evaluation and 1-2 treatment sessions only for functional mobility training using recommended AD and for HEP instruction. Plan of Care/Treatment Plan: N/A. PT evaluation and 1-2 treatment session only for functional mobility training using recommended AD and for HEP instruction. DISCHARGE RECOMMENDATIONS: Home with outpatient PT post follow up appointment in 2 weeks TREATMENT CODE/TIME: 64789, 08098/7:45-8:19 for 34 total units Thank you for the opportunity to participate in the care of this patient. Written by Nura Merchant DPTS Supervised by: Edel Ortiz, PT [facility]
[2025-08-10] MEDS: Carvedilol 25 MG TAB PO (09:27)
[2025-08-10] MEDS: Valsartan 80 MG TAB 160 MG PO (09:27)
[2025-08-10] MEDS: hydroCHLOROthiazide 12.5 MG TAB PO (09:27)
[2025-08-10] MEDS: Celecoxib 200 MG CAP PO (09:27)
[2025-08-10] MEDS: Pantoprazole 40 MG TABCR PO (09:27)
[2025-08-10] MEDS: Aspirin E.C. 81 MG TABEC PO (09:27)
[2025-08-10] MEDS: Omega-3 Fatty Acids 1000 MG CAP PO (09:27)
[2025-08-10] MEDS: Dexamethasone 4 MG TAB PO (09:28)
[2025-08-10] MEDS: Acetaminophen 500 MG TAB 1000 MG PO (09:28)
[2025-08-10] MEDS: Multivitamin TAB 1 TAB PO (09:28)
--- NOTE | 2025-08-10 09:47 | W.PM.DS.N ---
Date of service: 08/10/25 Time of Service: 09:35 DS: Diagnosis Discharge Diagnosis (1) Joint laxity of right knee: Status: Resolved Discharge Plan Disposition Patient Disposition: Home Condition: Improving Discharge Details Reason For Visit: loose R TKR Admit Date/Time: 08/09/25 07:00 Admit Provider: Mikel Garcia Attending Provider: Mikel Garcia Primary Care Provider: Dawit Walton Hospital Course Hospital Course: Ravin was admitted to the medical/surgical floor following the procedure. The surgery was tolerated well without any notable medical, surgical, or anesthetic complications. Mobilization began postoperatively. He was voiding spontaneously. Vitals were stable. Physical therapy worked with the patient and was cleared for discharge home. No acute medical issues. Pain was controlled on oral regimen. Home Meds and New Rx's Prescriptions: New acetaminophen 500 mg tablet 1,000 mg PO Q8H PRN (Reason: pain) Qty: 60 3RF aspirin 81 mg tablet,delayed release (DR/EC) 81 mg PO BID Qty: 60 0RF cefadroxil 500 mg capsule 500 mg PO BID Qty: 14 0RF celecoxib 200 mg capsule 200 mg PO BID PRN (Reason: pain) Qty: 60 1RF gabapentin 300 mg capsule 300 mg PO QHS Qty: 30 0RF pantoprazole 40 mg tablet,delayed release (DR/EC) 40 mg PO DAILY Qty: 14 0RF oxycodone 5 mg tablet 5 mg PO Q4H PRNQty: 18 0RF Continued amlodipine 10 mg tablet 10 mg PO HS albuterol sulfate [ProAir HFA] 90 mcg/actuation HFA aerosol inhaler 2 puff inhalation Q6H PRN carvedilol 25 mg tablet 25 mg PO BID Rx Instructions: must administer with a meal/food magnesium glycinate 118 mg magnesium capsule 500 mg PO DAILY multivitamin Tablet 1 tab PO DAILY omega 6-nhr-jue-fish oil [Fish Oil] 60-90-500 mg capsule 1 cap PO DAILY valsartan-hydrochlorothiazide 160-12.5 mg tablet 1 tab PO DAILY Discharge Instructions Additional Instructions: Total Knee Discharge Instructions Activity: The most important activity is to walk and to work on gentle motion (both flexion and extension). You should try to take short walks a few times a day. It is important that when resting you work on keeping the knee straight. Avoid putting a pillow behind the knee as this will encourage flexion. Work on range of motion exercises as provided by Physical Therapy. - Start outpatient physical therapy within 2 weeks. - You should wear the LETICIA hose on both legs for 2 weeks. You may remove these at night. You may also use any compression sock in place of the LETICIA hose. - Utilize [employer] to review exercises, see videos on exercises and obtain basic information pertaining to your surgery and your recovery. Dressing: Keep the surgical dressing (underneath the TALIA wrap) in place for at least one week. After the first week it may be removed and replaced with light gauze and tape or nothing. The wound and dressing may get wet after 3 days but avoid soaking the dressing or otherwise it will need to be changed. Many people prefer covering the dressing with cling wrap (saran wrap) to minimize it from getting soaked. If it gets wet, just pat dry. If it starts to peel off then it will need to be changed. Medications: - You should take Tylenol and anti-inflammatory Celebrex as your primary pain control medications. If the Celebrex is too expensive or not covered, please call the office for another alternative (Advil/Ibuprofen or Naproxen/Aleve) - You have been prescribed a stronger pain medication Oxycodone for breakthrough pain, take as needed as prescribed. - You have also been prescribed a stomach acid reduction agent Pantoprozole to help reduce stomach acid and reflux. - You have been prescribed Gabapentin to take at night for restlessness and nerve pain. - You will be taking Aspirin 81mg twice a day for DVT prevention unless instructed otherwise. - You have been prescribed Cefadroxil for one week for infection prophylaxis - If you have constipation you should take Colace or Miralax (both [id number]). It takes most people 3-4 days to have a bowel movement. Follow-up: 2 weeks If you have any acute concerns or questions, please do not hesitate to contact the office at [phone]. You may contact Dr. Garcia with any questions after hours through the hospital at [phone] or on his cell phone at [phone]. Stand Alone Forms: Portal Information Referrals: Mikel Garcia MD [ [facility] STAFF PHYSICIAN, Orthopaedic Surgical] Activity:: Activity as Tolerated Equipment/Supplies:: Walker Diet:: As Tolerated Discharge Orders Discharge Orders: Discharge Order (Routine); Ordered 08/10/25 Ordered By: Mikel Garcia DS: Summary Time Spent with Patient providing and/or coordinating discharge services: Less than 30 minutes Status at Discharge Functional status at discharge: uses cane/walker Overall status at discharge: patient is progressing back to baseline Mental Status: mental status grossly normal Speech and Movement: speech and movement normal Mood: congruent mood Affect: normal affect Exam Narrative Exam Narrative: RLE Dressing c/d/i. SLR intact. +ADF/APF/EHL/FHL SILT DP/SP/Tib Psych Mental Status: mental status grossly normal Speech and Movement: speech and movement normal Mood: congruent mood Affect: normal affect DS: Data Vitals/I&O Vitals and I&O: Vital Signs Temperature 36.4 C L 08/10/25 07:46 Temperature Source Temporal Artery Scan 08/10/25 07:46 Pulse 59 L 08/10/25 07:46 Pulse Rhythm Regular 08/09/25 17:57 Pulse 54 L 08/09/25 17:41 Respiratory Rate 18 08/10/25 07:46 Respiratory Effort Normal, Non-Labored 08/09/25 17:57 Respiratory Depth Normal 08/09/25 10:20 Blood Pressure 134/81 08/10/25 07:46 Blood Pressure Mean 98 08/10/25 07:46 Blood Pressure Position Supine 08/09/25 12:59 Pulse Oximetry 93 08/10/25 07:46 Respiratory End-tidal CO2 39 08/09/25 17:41 Oxygen Delivery Method Room Air 08/10/25 07:46 Oxygen Flow Rate 0 08/10/25 07:46 Pain Level 5 08/10/25 09:28 Comment pt refused 08/09/25 23:52 Intake & Output 08/09/25 08/09/25 08/10/25 11:59 23:59 11:59 Intake Total 800 / 800 1530 / 1530 Output Total 400 / 400 Balance 400 / 400 1530 / 1530 Weight 139.7 kg 139.7 kg Intake: IV 800 / 800 1050 / 1050 Oral 480 / 480 Output: Estimated Blood Loss 400 / 400 Other: Urine Color Yellow Urine Odor Normal Emesis Description None PFSH All Active Problems History of total left knee replacement (Acute 11/14/20) Hypertension (Chronic) Medical History Asthma History of postoperative nausea and vomiting Acid reflux Hypertension SLAP tear of shoulder Obstructive sleep apnea CPAP Asthma Migraine Surgical History S/P correction of deviated nasal septum Status post total right knee replacement (12/26/20) Infection of prosthetic right knee joint (~01/17/21) S/P I&D with polyexchange: 01/20/2021 Hx of shoulder surgery Tear of UCL of left elbow Kristofer Navin surgery ~2002 Tear of UCL of right elbow Kristofer Navin surgery November 1997 History of toe surgery Right great toe tendon repair 1994 S/P tonsillectomy Status post hernia repair Umbilical hernia Status post arthroscopy of left shoulder Left SLAP tear H/O arthroscopic knee surgery Left ACL reconstruction with patellar BTB 1997 lateral release 2000 arthroscopy 2002 S/P reconstruction of anterior cruciate ligament Left Social History Smoking/Tobacco Use Status: Never Smoking risk assessment performed?: Yes Alcohol Intake: never Drug use: Never Substance use type: does not use Housing: house Additional Social history: [facility] Time Spent with Patient Time Spent with Patient: <45 minutes Time was spent: preparing to see the patient(eg.review tests), indepentently interpreting results and counseling the patient
--- NOTE | 2025-08-10 14:10 | PDOC.CMDIS ---
Date of service: 08/10/25 Time of Service: 10:30 LACE Index Scoring Tool Questions: Length of Stay (in days): 1 Was the patient admitted via the E.D.?: No Comorbidities: Chronic Pulmonary Disease E.D. Visits: 0 Answers: Total Score: 3 Risk of Readmission: Low Risk Care Management Discharge Plan Reason for Hospitalization: revision of right total knee replacement Discharge Plan: Ravin was discharged this morning with no new services. He tolerated his surgery very well. He was given excellent written discharge instructions by his surgeon. He will f/u with ortho in 2 weeks - the office will call him. He will also f/u with his PCP. Ravin was transported home in a private vehicle. Patient/Family Education Needs: Review of discharge instructions, activity, limitations and discuss Ask me 3.
== END 2025-08-10 10:25 | disposition home or self-care (01) | DRG 468 ==
LOC: PDS 11:19 → MS 18:19 → PDS 08-10 08:14 → MS 08-10 08:15
PROVIDERS: Admitting Provider Student in an Organized Health Care Education/Training Program; PCP Physician Assistant; Visit Provider Student in an Organized Health Care Education/Training Program
PROC: 0SPT0JZ Removal of Synthetic Substitute from Right Knee Joint, Femoral Surface, Open Approach (ICD-10-PCS; CPT 27487; principal; 2025-08-09 12:45)
DX: T84.89XA Other specified complication of internal orthopedic prosthetic devices, implants and grafts, initial encounter (principal); M23.8X1 Other internal derangements of right knee; G89.18 Other acute postprocedural pain; I10 Essential (primary) hypertension; Z96.652 Presence of left artificial knee joint; G43.909 Migraine, unspecified, not intractable, without status migrainosus; E78.5 Hyperlipidemia, unspecified; G47.33 Obstructive sleep apnea (adult) (pediatric); J45.909 Unspecified asthma, uncomplicated; K21.9 Gastro-esophageal reflux disease without esophagitis; Z79.899 Other long term (current) drug therapy
CPT/HCPCS: 27486; 64447; 64450; 97161; 97530; 73560; C1776; J0166; J0665; J0690; J1100; J1171; J1790; J1885; J2250; J2401; J2405; J2704; J2765; J2795; J3475; J8540

== ENCOUNTER 2025-08-21 12:01 | Outpatient (CLI) | payer BC, SELFPAY ==
--- NOTE | 2025-08-21 11:15 | DI.RAD_ITS ---
Exam(s) XR KNEE RT 2V AP,LAT EXAM: XR KNEE RT 2V AP,LAT CLINICAL HISTORY: S/P REVISION R TKA. TECHNIQUE: 2D digital imaging was performed. Two images were obtained. AP and lateral views were obtained. COMPARISON: CR XR KNEE RT 2V AP,LAT from 08/09/2025 FINDINGS: BONES: There are stable post operative changes of a right knee prosthesis present. No fracture or dislocation. JOINTS: The orthopedic hardware is in good position. No evidence of hardware loosening. SOFT TISSUE: Normal. IMPRESSION: Stable right total knee revision. DATA REPOSITORY: RADIATION DOSE DELIVERED:
== END 2025-08-21 12:02 | disposition home or self-care (01) ==
LOC: DIORS 12:01
PROVIDERS: PCP Physician Assistant; Visit Provider Student in an Organized Health Care Education/Training Program
DX: M23.8X1 Other internal derangements of right knee (principal); Z47.1 Aftercare following joint replacement surgery; Z96.651 Presence of right artificial knee joint
CPT/HCPCS: 73560

== ENCOUNTER 2025-09-12 11:31 | Inpatient (IN) | payer BC, SELFPAY ==
[2025-09-12] VITALS (16 sets, daily range): BP systolic 110–149; BP diastolic 59–94; PULSE 63–73; RESP 15–28; TEMP 36.2–38.2; O2SAT 89–100; BMI 44.9
--- NOTE | 2025-09-12 12:02 | W.PREOPHP ---
Assessment and Plan Assessment and plan (1) Infection of prosthetic right knee joint: Status: Acute Assessment and plan: Ravin is a 55-year-old male who is status post revision right knee replacement. Unfortunately he was quite sick for a few days and then 2 days later developed swelling of the right knee. While he still is able to move the knee quite amazingly without significant pain, cultures are growing group B strep and with an elevated cell count this has to be assumed to be infected. Therefore, I recommend that we move urgently for debridement, implant retention, antibiotics. This was similar to what he had previously done. This is a different organism and therefore unlikely this is residual from his initial infection, particular with previous surgeries going uneventfully about the right knee and with multiple workups for ongoing infection. I did discuss the technical details of the surgery with Ravin. I also reviewed the necessary time to stay in the hospital for appropriate antibiotic ministration and long-term antibiotics for at least 2 weeks, if not up to 6 weeks. I discussed the risk of the procedure to include bleeding, continued flexion, pain, stiffness, damage nerves and vessels, damage to muscle and tendons, laxity, blood clot. Despite these risk, he elects to proceed. History of Present Illness History of Present Illness Chief Complaint: Right knee effusion Narrative: Ravin is a 55-year-old who is status post femoral revision on the right side. He does have history of infection of the right side, MSSA, treated with DA IR. He was doing well in his recovery from the femoral revision until he developed fever, chills, nausea and vomiting. He thought he may have had food poisoning. This seemed to improve on its own and at the time had no new symptoms. However, 2 days later he developed swelling about the right knee. While I was initially reported that he had difficulty with ambulation and pain, he reports that the pain has been quite minimal. He is mostly limited just by swelling of the right knee. He is very clear this is nothing like his previous infection. However, on the second day of culture growth, the aspirate from the emergency department at [facility] grew group B strep. He also had an elevated cell count. Therefore, this is an infected right knee. He denies any chest pain or shortness of breath. He denies any current fever or chills. He does have redness and swelling about the entire distal right leg. Review of Systems All systems reviewed & are unremarkable except as noted in HPI and below PFSH All Active Problems Infection of prosthetic right knee joint (Acute ~01/17/21) S/P I&D with polyexchange: 01/20/2021 History of total left knee replacement (Acute 11/14/20) Hypertension (Chronic) Medical History Asthma History of postoperative nausea and vomiting Acid reflux Hypertension SLAP tear of shoulder Obstructive sleep apnea CPAP Asthma Migraine Surgical History S/P correction of deviated nasal septum Status post total right knee replacement (12/26/20) Hx of shoulder surgery Tear of UCL of left elbow [facility] surgery ~[facility] History of toe surgery Right great toe tendon repair 1994 S/P tonsillectomy Status post hernia repair Umbilical hernia Status post arthroscopy of left shoulder Left SLAP tear H/O arthroscopic knee surgery Left ACL reconstruction with patellar BTB 1997 lateral release 2000 arthroscopy 2002 S/P reconstruction of anterior cruciate ligament Left Social History Smoking/Tobacco Use Status: Never Smoking risk assessment performed?: Yes Alcohol Intake: never Drug use: Never Substance use type: does not use Housing: house Additional Social history: UTAP Meds Allergies and Home Medications Allergies Allergy/AdvReac Type Severity Reaction Status Date / Time Cooked Barr Peppers AdvReac Severe Nausea, Uncoded 09/11/25 11:01 vomiting Home Medications ?Medication ?Instructions ?Recorded ?Confirmed ?Type amlodipine 10 mg tablet 10 mg PO HS 10/15/20 09/11/25 History albuterol sulfate 90 mcg/actuation 2 puff inhalation Q6H PRN 11/05/20 09/11/25 History aerosol inhaler (ProAir HFA) carvedilol 25 mg tablet 25 mg PO BID 01/31/22 09/11/25 History magnesium glycinate 500 mg PO DAILY 07/24/25 09/11/25 History multivitamin 1 tab PO DAILY 07/24/25 09/11/25 History omega 8-vlj-zki-fish oil 60 mg-90 1 cap PO DAILY 07/24/25 09/11/25 History mg-500 mg capsule (Fish Oil) valsartan 160 1 tab PO DAILY 08/08/25 09/11/25 History mg-hydrochlorothiazide 12.5 mg tablet acetaminophen 500 mg tablet 1,000 mg (2 x 500 mg) PO Q8H PRN 08/10/25 09/11/25 Rx pain #60 tabs aspirin 81 mg tablet,delayed 81 mg PO BID #60 tabs 08/10/25 09/11/25 Rx release celecoxib 200 mg capsule 200 mg PO BID PRN pain #60 caps 08/10/25 09/11/25 Rx gabapentin 300 mg capsule 300 mg PO QHS #30 caps 08/10/25 09/11/25 Rx pantoprazole 40 mg tablet,delayed 40 mg PO DAILY #14 tabs 08/10/25 09/11/25 Rx release cefadroxil 500 mg capsule 500 mg PO BID #14 caps 08/17/25 09/11/25 Rx oxycodone 10 mg tablet 10 mg PO BID PRN pain #30 tabs 08/31/25 09/11/25 Rx Exam Const General: cooperative, healthy appearing, comfortable and no acute distress Resp Effort & Inspection: normal respiratory effort Auscultation: clear to auscultation bilaterally Cardio Rate: regular rate Extrem Other: Right lower extremity shows a well-healed incision. There is notable fullness and an effusion about the right knee. There is also swelling about the lower aspect of the right leg with some erythema.
[2025-09-12 12:25] LABS: HCT 34.7 % (40.0-50.0); HGB 11.6 g/dL (13.5-17.5); MCH 29.1 pg (27.0-33.0); MCHC 33.4 % (32.0-36.0); MCV 87 fL (80-95); MPV 9.0 fL (8.0-11.0); Platelet Count 290 10^3/uL (130-400); RBC 3.99 10^6/uL (4.36-5.78); RDW 13.3 % (11.8-14.1); RDW-SD 42.4 fL; WBC 10.62 10^3/uL (4.4-10.8)
[2025-09-12] MEDS: Gabapentin 300 MG CAP PO ×2 (12:34→19:53)
[2025-09-12] MEDS: Acetaminophen 500 MG TAB 1000 MG PO ×2 (12:34→19:53)
[2025-09-12] MEDS: Celecoxib 200 MG CAP 400 MG PO (12:34)
[2025-09-12 12:43] LABS: ALT 44 U/L (10-49); AST 24 U/L (<34); Albumin 4.3 g/dL (3.2-5.0); Alkaline Phosphatase 97 U/L (46-116); Anion Gap 8.4 mmol/L (3-11); BUN 13 mg/dL (9-23); Bilirubin, Total 0.9 mg/dL (0.2-1.2); CO2 27.6 mmol/L (20.0-31.0); Calcium 9.5 mg/dL (8.3-10.6); Chloride 101 mmol/L (98-107); Glucose 111 mg/dL (74-106); Potassium 3.8 mmol/L (3.5-5.1); Sodium 137 mmol/L (136-145); Total Protein 7.2 g/dL (5.7-8.2)
[2025-09-12] MEDS: Lactated Ringers 1,000 ML 80 ML IV ×2 (14:25→20:30)
--- NOTE | 2025-09-12 14:31 | W.ANESPRE ---
General Info Date of Service Date Performed: 09/12/25 Height: 5 ft 9 in Weight: 138.2 kg Body Mass Index (BMI): 44.9 Surgical Procedure: Operation Date: 09/12/25 15:40 Proposed Procedure Side Surgeon p Knee Polyethylene Exchange and Washout Right Mikel Garcia MD Meds Allergies and Home Medications Allergies Allergy/AdvReac Type Severity Reaction Status Date / Time Cooked Barr Peppers AdvReac Severe Nausea, Uncoded 09/12/25 12:07 vomiting Home Medication ?Medication ?Instructions ?Recorded amlodipine 10 mg tablet 10 mg PO HS 10/15/20 albuterol sulfate 90 mcg/actuation 2 puff inhalation Q6H PRN 11/05/20 aerosol inhaler (ProAir HFA) carvedilol 25 mg tablet 25 mg PO BID 01/31/22 magnesium glycinate 500 mg PO DAILY 07/24/25 multivitamin 1 tab PO DAILY 07/24/25 omega 0-sdd-xfp-fish oil 60 mg-90 1 cap PO DAILY 07/24/25 mg-500 mg capsule (Fish Oil) valsartan 160 1 tab PO DAILY 08/08/25 mg-hydrochlorothiazide 12.5 mg tablet acetaminophen 500 mg tablet 1,000 mg (2 x 500 mg) PO Q8H PRN 08/10/25 pain #60 tabs aspirin 81 mg tablet,delayed 81 mg PO BID #60 tabs 08/10/25 release celecoxib 200 mg capsule 200 mg PO BID PRN pain #60 caps 08/10/25 gabapentin 300 mg capsule 300 mg PO QHS #30 caps 08/10/25 pantoprazole 40 mg tablet,delayed 40 mg PO DAILY #14 tabs 08/10/25 release cefadroxil 500 mg capsule 500 mg PO BID #14 caps 08/17/25 oxycodone 10 mg tablet 10 mg PO BID PRN pain #30 tabs 08/31/25 valsartan 160 mg tablet mg 09/12/25 Current Visit Medications: Current Medications Generic Name Dose Route Start Last Admin Trade Name Freq PRN Reason Stop Dose Admin Acetaminophen 1,000 mg 09/12/25 06:00 09/12/25 12:34 Acetaminophen 500 Mg Tab PO 09/12/25 23:59 1,000 mg PREOP EVELIN Administration Celecoxib 400 mg 09/12/25 06:00 09/12/25 12:34 Celecoxib 200 Mg Cap PO 09/12/25 23:59 400 mg PREOP EVELIN Administration Gabapentin 300 mg 09/12/25 06:00 09/12/25 12:34 Gabapentin 300 Mg Cap PO 09/12/25 23:59 300 mg PREOP EVELIN Administration Ringer's Solution 1,000 mls @ 80 mls/hr 09/12/25 06:00 IV 09/12/25 23:59 INFUSION EVELIN Cefazolin Sodium 3,000 mg/ 100 mls @ 200 mls/hr 09/12/25 06:00 Sodium Chloride IV 09/12/25 23:59 PREOP EVELIN Tranexamic Acid/Sodium Chloride 1,000 mg in 100 mls @ 600 mls/hr 09/12/25 06:00 IVPB 09/12/25 23:59 PREOP EVELIN Sodium Chloride 0 ml 09/12/25 06:00 Normal Saline Flush 10 Ml Syr IV 09/12/25 23:59 PRN PRN Sodium Chloride 0 ml 09/12/25 06:00 Normal Saline 10 Ml Vial IJ 09/12/25 23:59 DIRECTED PRN Sterile Water 0 ml 09/12/25 06:00 Water,Injection,Sterile 10 Ml Vial IJ 09/12/25 23:59 DIRECTED PRN PFSH Active Problems Active Problems: Problem Status Onset Code Joint laxity of right knee Resolved M23.8X1 Infection of prosthetic right knee joint Acute ~01/17/21 T84.53XA History of total left knee replacement Acute 11/14/20 Z96.652 Hypertension Chronic I10 Medical History Medical History PONV (postoperative nausea and vomiting) Asthma History of postoperative nausea and vomiting Acid reflux Hypertension SLAP tear of shoulder Obstructive sleep apnea CPAP Asthma Migraine Surgical History Surgical History S/P correction of deviated nasal septum Status post total right knee replacement (12/26/20) Hx of shoulder surgery Tear of UCL of left elbow Kristofer Navin surgery ~2002 Tear of UCL of right elbow Kristofer [facility] surgery November 1997 History of toe surgery Right great toe tendon repair 1994 S/P tonsillectomy Status post hernia repair Umbilical hernia Status post arthroscopy of left shoulder Left SLAP tear H/O arthroscopic knee surgery Left ACL reconstruction with patellar BTB 1998 lateral release 2000 arthroscopy 2002 S/P reconstruction of anterior cruciate ligament Left Tobacco Smoking/Tobacco Use Status: Never Passive smoking exposure: Yes Alcohol Alcohol Intake: never Substance Use Substance use: Never Substance use type: does not use Vital Signs and Lab Results Vital Signs Most Recent Vital Signs in EMR: Most Recent Vital Signs Temp Pulse Resp BP Pulse Ox 36.2 C L 73 16 149/94 H 96 09/12/25 11:40 09/12/25 11:40 09/12/25 11:40 09/12/25 11:40 09/12/25 11:40 Lab Results 09/12/25 12:13 09/12/25 12:13 Blood Type / Crossmatch: Antibody Screen NEGATIVE Today Complete Blood Count: WBC, (4.4-10.8) 10.62 10^3/uL Today, 12:13 RBC, (4.36-5.78) 3.99 10^6/uL L Today, 12:13 Hgb, (13.5-17.5) 11.6 g/dL L Today, 12:13 Hct, (40.0-50.0) 34.7 % L Today, 12:13 Plt Count, (130-400) 290 10^3/uL Today, 12:13 Complete Metabolic Panel: Sodium, (136-145) 137 mmol/L Today, 12:13 Potassium, (3.5-5.1) 3.8 mmol/L Today, 12:13 Chloride, (98-107) 101 mmol/L Today, 12:13 Carbon Dioxide, (20.0-31.0) 27.6 mmol/L Today, 12:13 BUN, (9-23) 13 mg/dL Today, 12:13 Creatinine, (0.73-1.18) 0.71 mg/dL L Today, 12:13 Est GFR (CKD-EPI 2020), (mL/min/1.73m2) 114.76 Today, 12:13 Calcium, (8.3-10.6) 9.5 mg/dL Today, 12:13 Albumin, (3.2-5.0) 4.3 g/dL Today, 12:13 Glucose, (74-106) 111 mg/dL H Today, 12:13 Liver Function Panel: ALT, (10-49) 44 U/L Today, 12:13 AST, (<34) 24 U/L Today, 12:13 Anesthesia Assessment and Plan Anesthesia History Personal History: PONV Family History: No Family History of Anesthesia Complications Exercise Tolerance Exercise Tolerance: Metabolic Equivalents>4 Pertinent Negatives Pertinent Negatives: No Symptoms of GERD and No Major Cardiovascular Symptoms or Complaints Cardiac & Pulmonary Exam Cardiac Exam: Normal S1/S2 Heart Sounds Pulmonary Exam: Clear Bilateral Breath Sounds Implantable Cardiac Device Does patient have a Pacemaker or an ICD?: No Airway Exam Known Difficult Airway: No Mallampati Class: 1 Mouth Opening: Normal (> 3cm) Thyromental Distance: Greater than 3 cm Neck Range of Motion: Full ROM Neck Circumference: Normal Teeth Condition: Normal Dentition ASA Classification ASA Score: ASA 3 Emergency Case?: No NPO Status NPO Status: NPO Clears >2 hours, Solids >8 hours Anesthesia Plan Resuscitation Status: Full Code Anesthesia Technique: Spinal Anesthesia Airway Planned: Natural Airway Pain Management: Surgeon and patient request nerve block Monitors Used: Standard Monitors
[2025-09-12] MEDS: Normal Saline Flush 10 ML SYR IV ×3 (14:35→23:00)
[2025-09-12] MEDS: ceFAZolin 3,000 MG in Normal Saline 100 ML 200 MG IV (15:19)
--- NOTE | 2025-09-12 15:33 | W.PM.OP ---
Operative Note Operative Note PRE-OP DIAGNOSIS: Right Prosthetic Knee Infection POST-OP DIAGNOSIS: other (Right Septic Prepatellar Bursitis, Potential Right Prosthetic Knee Infection) PROCEDURE: Irrigation and Debridement and bursectomy, right knee Irrigation and debridement, Synovectomy, and Polyethylene Exchange -right knee SURGEON: Mikel Garcia PURCHASE ORDER CHECKER: Guera Barron PURCHASE ORDER CHECKER: Yakelin Goodwin ANESTHESIA TYPE: General LMA/ETT Refer to Anesthesia Record ESTIMATED BLOOD LOSS: 200 PATHOLOGY: other (Multiple cultures were sent both as fluid, swabs, and specimen) TOURNIQUET TIME: 0 COMPLICATIONS: None Patient was transported to: PACU Patient's condition: stable Indications: Ravin is a 55-year-old male who is status post revision arthroplasty of his right femur. He was doing well until he developed a sore throat followed by nausea, vomiting, fever, and chills. During this time he had no symptoms of his right knee. However, he then developed notable swelling about the right knee with swelling in the leg and redness. He was seen at the [facility] emergency department and an aspiration was performed reportedly of the knee joint, which demonstrated a high cell count and eventually grew group B strep. For these reasons I recommend we proceed to the operating room for irrigation debridement, synovectomy and polyethylene exchange. He has a previous history of MSSA infection on the right knee which was treated with a DAIR procedure with no residual signs of infection or symptoms. I reviewed the treatment with him. I discussed the risks to include bleeding, continued infection, need for repeat procedures, damage to muscle and tissues. Despite these risk, he elects to proceed. Findings: There is copious amount of fluid seen within the prepatellar bursal space. This was cloudy and blood tinged. The arthrotomy was intact without any visible defects. An aspiration of the knee joint was performed prior to entering the knee joint where this fluid appeared clear with some mild particulate. However, given the significant mount of fluid adjacent to the arthrotomy I proceeded with opening up the knee joint and performing a thorough irrigation, debridement, synovectomy, and polyethylene exchange. Procedure Description: Ravin was greeted in the preoperative holding area where the correct side was identified and marked. The consent was reviewed with the patient and signed. The history and physical was updated. All questions were answered. Preoperative mediacations were administered: Acetaminophen 1000mg, Celebrex 400mg, and Gabapentin 300mg. An adductor canal block was then administered by the anesthesia team in the D[facility]. Ravin was taken back to the operating room. A spinal anesthestic was administered, however, this did not seem to take completely and therefore he was converted to general anesthetic.. The patient was placed into the supine position on the operating room table. Posts were placed for positioning during the procedure. All bony prominences were well padded. Prophylactic antibiotics in the form of Cefazolin were administered. The right leg was then prepped with Chloraprep and draped in a standard fashion with impervious stockinette. A second prep with Chloraprep was performed prior to application of Iodine impregnated skin protection. A timeout to confirm correct identity, side and site, procedure, allergies, anesthesia, and medical concerns was performed. With the knee in some flexion, the previous incision was excised with full-thickness flaps. Then, copious amount of fluid was encountered in the prepatellar bursal space. This fluid was sent to the lab for culture. There is notable inflammatory changes seen in the bursal region. Full thickness skin flaps were raised once the extensor mechanism was encountered. These were raised medially and laterally. Any bleeding was controlled with electrocautery. An aggressive debridement was performed excising any necrotic or inflamed bursal tissue. I also utilized a rongeur and a curette to debride all the surface area in this bursal space. The arthrotomy was inspected and it looked to be intact. There may be some very small defects but there was no tear in the arthrotomy repair or the quadriceps split. I continued with a thorough debridement of this prepatellar bursal space. 3 L of normal saline was then utilized to irrigate the space and there is no apparent necrotic tissue or purulent material. I then aspirated the knee joint through the arthrotomy prior to opening it. This returned 20 cc of fairly clear synovial fluid. There was some mild particulate seen. Nevertheless, given the state of the knee adjacent to the arthrotomy and its proximity to the initial surgery I proceeded with an arthrotomy and opened up the knee. There is no gross purulence but there was some unhealthy and maybe necrotic tissue seen within the knee. This was hard to know if it was related to the recent surgery or developing from the adjacent infection. Nevertheless an aggressive synovectomy was performed. The synovial tissue was resected with 2 José and 2 Allis clamps. Additionally, a curette and rongeur was utilized for additional debridement. Tissue quality appeared to be quite good. There is no gross necrosis. The knee was flexed up and the polyethylene was removed. Posterior debridement was also performed with a curette and rongeur. There is no gross purulence seen. Tissue samples were sent anteriorly and posteriorly of the synovium. Tissue swab was also sent from around the implant. 3 L normal saline were then used to irrigate through the knee at the same time any unhealthy tissue was debrided. After this irrigation the implant some cells were debrided aggressively with a lap pad and a Francis elevator. I then irrigated the knee with surgery for Betadine solution where it was allowed to sit for 3 minutes. This was then irrigated out once again with normal saline. Gloves were changed and a different back table was utilized that not been contaminated. A new polyethylene was placed. The knee was brought back to 90 degrees of flexion. Using #1 Antimicrobial PDS, the arthrotomy and quadriceps split was repaired. This was done in interrupted fashion using [id number] and simple sutures. The tissue quality was excellent and there was great reapproximation of these tissues to each other and stable up to at least 100 degrees of flexion. The knee was once again irrigated. Deep tissues were then reapproximated with 0 PDS and 2-0 PDS. The skin was closed with a running 3-0 Monocryl in a subcuticular fashion. A joaquin dressing was then applied to provide vacuum assisted wound closure. This was reinforced with an Darrin wrap from foot to thigh. A CryoCuff was applied. Ravin was transferred to the hospital stretcher without difficulty an suffering no apparent complication. Ravin has a gaurded prognosis. I will continue to follow the culture results to see if anything grows from within the knee. This could very well be simply a group B strep that cause a cellulitis and a bursitis but did not truly start within the knee. We will continue IV antibiotics, cefazolin 2 g every 8 hours, and await cultures. Likely PICC line placement tomorrow. Aspirin 81mg BID will be used for DVT prophylaxis. Weightbearing as tolerated with assistive device. Date of Procedure: 09/12/25
[2025-09-12] MEDS: TRANEXAMIC ACID/SOD. CHL. 1,000 MG/100 ML BAG 600 MG IVPB (15:44)
--- NOTE | 2025-09-12 16:10 | W.ANESNERVE ---
Nerve Block Single Injection Procedure Date and Time Date Performed: 09/12/25 Procedure Start: 15:05 Location Where Procedure Performed Procedure Location: Day Surgery Unit Reason Performed: Postoperative Analgesia Requesting Provider: Mikel Garcia Timeout Performed Timeout Performed: Yes Monitoring Used ECG, Blood Pressure, SpO2 and See EMR for corresponding vital signs Sterility Sterility: Hand Hygiene, Surgical Cap, Surgical Mask, Sterile Gloves and Chlorhexidine Sedation Given During Procedure Sedation Given (Indicate Dose Given): No Sedation given Patient Mental Status Patient Mental Status: Awake Nerve Block 1st Nerve Block: Laterality: Right Block Type: Adductor Canal Ultrasound Image Saved?: Yes Needle / Catheter Used: 120mm SonoPlex II Local Anesthetic Bolus (Indicate Dose Given): Lidocaine used for local infiltration of skin, Injected in 3-5ml increments after negative blood aspiration, Bupivacaine 0.25% Dose:: 10ml and Exparel Dose:: 10ml Additives (Indicate Dose Given): None Ultrasound: Sterile probe cover and gel used Nerve Stimulator: Supplement to Ultrasound use and No twitch or parasthesia noted < 0.5 mA Paresthesia: None Procedure Tolerated: No Complications and Patient tolerated well (one fascial layer that was extra sensitive. Proceeded with ease.) Procedure Outcome: Successful Performed By: Torres Allison
[2025-09-12] MEDS: ROPIvacaine/EPI/CLONIDINE/KET 50 ML SYRINGE IJ (16:35)
[2025-09-12] MEDS: Ketorolac 15 MG/ML VIAL IVP ×2 (18:17→22:59)
--- NOTE | 2025-09-12 18:26 | W.ANESPOSTOP ---
Postoperative Evaluation Date, Time and Location Date Performed: 09/12/25 Time Performed: 18:26 Patient Location: PACU Vital Signs Most Recent Imported Vital Signs: Most Recent Vital Signs Temp Pulse Resp BP Pulse Ox 36.8 C 70 18 123/59 L 99 09/12/25 18:21 09/12/25 18:21 09/12/25 18:21 09/12/25 18:21 09/12/25 18:21 Pain Score Most Recent Pain Score: Most Recent Pain Score Pain Level 5 09/12/25 18:21 Assessment Mental Status: Awake (Alert & Oriented to Patient Baseline) Airway and Respiratory Function: Patent airway with normal (patient baseline) respiratory exam Cardiovascular Function: Hemodynamically Stable Hydration Status: Adequately Hydrated Nausea & Vomiting: No Nausea or Vomiting Pain: Pain is tolerable per patient Peripheral Nerve Block: Regional nerve block not resolved at time of post operative discharge
[2025-09-12 19:47] LABS: Lab Add On Test DONE
[2025-09-12] MEDS: Tranexamic Acid 650 MG TAB 1300 MG PO (19:52)
[2025-09-12] MEDS: Aspirin E.C. 81 MG TABEC PO (19:53)
[2025-09-12] MEDS: amLODIPine 10 MG TAB PO (19:53)
[2025-09-12] MEDS: Carvedilol 25 MG TAB PO (19:53)
[2025-09-12] MEDS: HYDROmorphone 2 MG/ML SYR 0.5 MG IVP (20:05)
[2025-09-12 20:07] LABS: C-Reactive Protein 10.24 mg/dL (<=0.50)
[2025-09-12] MEDS: ceFAZolin 2 GM/50 ML BAG IVPB (23:00)
[2025-09-13] VITALS (8 sets, daily range): BP systolic 123–163; BP diastolic 76–93; PULSE 66–72; RESP 16–21; TEMP 36.4–37.2; O2SAT 93–97
[2025-09-13] MEDS: Ketorolac 15 MG/ML VIAL IVP ×4 (04:09→21:57)
[2025-09-13] MEDS: ceFAZolin 2 GM/50 ML BAG IVPB ×3 (06:24→21:57)
[2025-09-13] MEDS: oxyCODONE 10 MG TAB PO ×3 (06:34→21:02)
--- NOTE | 2025-09-13 07:00 | RESPIRATORY ---
Pt says he uses a home cpap but is unsure of his settings.
[2025-09-13] MEDS: Pantoprazole 40 MG TABCR PO (07:46)
[2025-09-13] MEDS: Valsartan 80 MG TAB 160 MG PO (08:39)
[2025-09-13] MEDS: Carvedilol 25 MG TAB PO ×2 (08:41→20:57)
[2025-09-13] MEDS: hydroCHLOROthiazide 12.5 MG TAB PO (08:44)
[2025-09-13] MEDS: Acetaminophen 500 MG TAB 1000 MG PO ×3 (08:46→20:57)
[2025-09-13] MEDS: Aspirin E.C. 81 MG TABEC PO ×2 (08:48→20:59)
--- NOTE | 2025-09-13 08:54 | INITIAL_ITS ---
Date of service: 09/13/25 Time of Service: 08:54 Care Management Initial Assmt Initial Assessment Reason for Hospitalization: Infected knee prosthesis Functional Status/Living Situation Patient Presentation: Ravin was sitting up in bed when CM met with him. He was easily engaged and agreeable to conversation. Ravin was admitted with an infected knee prosthesis on 09/12/25. He went to the OR yesterday for an I&D and will need a course of IV antibiotics. Several options were presented to him and he has determined he would prefer home infusions. Referrals were sent to [facility] and [facility] by CM. There is no available staff to place a PICC but Dr. Garcia has asked Anesthesia to insert a midline tomorrow. Ravin lives in a single family home in [place], [place] with his , 2 teenage child jamil and his Dad. 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 He explained that his Dad has had several strokes which have affected him cognitively as well as physically and requires a lot of assistance. Ravin is independent at baseline and does not receive any community services. He will need nursing support for the IV antibiotic infusions, at least initially. Ravin shared that his is a nurse so does not anticipate any difficulties with administering the medication at home. Town of Residence: [place], [place] Resides with: Spouse (Celi) Significant Other/Family: Local Natural Supports: family Employment Status: Employed Instrumental Activities of Daily Living (ADLs): Independent Medications Medication Management: No Issues/Barriers identified Physical Functioning/Mobility Assistive Device: none Advance Directives Advance Directives: Do you have an Advance Directive: N , 11:14 AD On File at [facility]: N 05/04/19, 11:14 Date Asked 09/12/25 Today, 07:39 AD Date Reviewed COLST On File at [facility] COLST Date Scanned Code Status Resuscitation Status Full Code Insurance Coverage/Financial Issues Insurance: BC/BS Federal Care Team Visit Care Team Role Provider Type Dawit Walton Primary Care Provider NON-[facility] STAFF PHYSICIAN Mikel Garcia MD Admit Provider [facility] STAFF PHYSICIAN Attending Provider Discharge Potential Discharge Needs: Surgical F/U Appt Anticipated Barriers to Discharge: None Identified Patient/Family Education Needs: Review discharge instructions, discuss Ask Me Three Transportation: Private vehicle Plan: Anticipate Ravin will be discharged home, possibly with new home health services, when medically cleared. He will need IV antibiotics post-operatively but the exact course is unknown. He may need home infusions if for a prolonged period. CM will follow and continue to support discharge planning effforts. Social Determinants of Health Screening Will the Patient Participate in the Screening?: Unable to obtain Do you worry about having a steady place to live?: no Comments: Pt arrived on floor under sedation PFSH All Active Problems Infection of prosthetic right knee joint (Acute ~01/17/21) S/P I&D with polyexchange: 01/20/2021 History of total left knee replacement (Acute 11/14/20) Hypertension (Chronic) Medical History PONV (postoperative nausea and vomiting) Asthma History of postoperative nausea and vomiting Acid reflux Hypertension SLAP tear of shoulder Obstructive sleep apnea CPAP Asthma Migraine Surgical History S/P correction of deviated nasal septum Status post total right knee replacement (12/26/20) Hx of shoulder surgery Tear of UCL of left elbow Kristofer Navin surgery ~2002 Tear of UCL of right elbow Kristofer Navin surgery November 1997 History of toe surgery Right great toe tendon repair 1994 S/P tonsillectomy Status post hernia repair Umbilical hernia Status post arthroscopy of left shoulder Left SLAP tear H/O arthroscopic knee surgery Left ACL reconstruction with patellar BTB 1997 lateral release 2000 arthroscopy 2002 S/P reconstruction of anterior cruciate ligament Left Social History Smoking/Tobacco Use Status: Never Smoking risk assessment performed?: Yes Alcohol Intake: never Drug use: Never Substance use type: does not use Housing: house Additional Social history: [employer]
[2025-09-13] MEDS: HYDROmorphone 2 MG/ML SYR 0.5 MG IVP ×4 (10:20→21:57)
[2025-09-13 12:28] LABS: Source Synovial
[2025-09-13 12:30] LABS: Polynuclear Cells 36 %
--- NOTE | 2025-09-13 13:36 | CHAPLAIN ---
Ravin was resting in bed, watching Home Alone when I stopped in. He's here because of an infection is his knee replacement. Ravin was pleasant and said he's will be after work. He lived in [place] for many years and now lives in [place], [place]. I explained my role and offered support.
--- NOTE | 2025-09-13 15:21 | PHA.REVIEW2 ---
Pharmacy Admission Review Admission Clinical Review Admission Pharmacy Review: Infection of prosthetic right knee joint (Acute ~01/17/21) adhesive Allergy (Intermediate, Verified 09/12/25 16:48) rash Cooked Barr Peppers Adverse Reaction (Severe, Uncoded 09/12/25 12:07) Nausea, vomiting Resuscitation Status Full Code Height 5 ft 9 in Weight 138.2 kg Pharmacy Admission Review Renal Dosing Renal Dosing: BUN 13 mg/dL (9-23) 09/12/25 12:13 Creatinine 0.71 mg/dL (0.73-1.18) L 09/12/25 12:13 Medications needing adjustments: Reviewed (CrCl ~160. No need for dosing adjustments at this time.) Anticoagulation Anticoagulation: Hgb 11.6 g/dL (13.5-17.5) L 09/12/25 12:13 Hct 34.7 % (40.0-50.0) L 09/12/25 12:13 Plt Count 290 10^3/uL (130-400) 09/12/25 12:13 Creatinine 0.71 mg/dL (0.73-1.18) L 09/12/25 12:13 DVT Prophylaxis: Reviewed (Aspirin 81mg PO daily. No other VTE therapy mentioned in H&P.) Opiate Usage Evaluate Pain Scale/Pains Meds: Reviewed (Hydromorphone 0.5mg IVP Q4H PRN.) Scheduled Bowel Reg ordered if on Opiates?: Yes (Docusate 100mg PO BIDPRN.) Relevant Labs Relevant Labs: Sodium 137 mmol/L (136-145) 09/12/25 12:13 Potassium 3.8 mmol/L (3.5-5.1) 09/12/25 12:13 Chloride 101 mmol/L (98-107) 09/12/25 12:13 C-Reactive Protein 10.24 mg/dL (<=0.50) H 09/12/25 12:13 Electrolytes, C-Reactive P, ESR: Reviewed DM Control DM Control: Reviewed (Non diabetic) Cardiac Review BP, HR, EF%: Reviewed (BP 143/81, pulse 66 today. BP higher today than on admission.) QTc Review QTc: N/A (No EKG performed.) IV to PO Switch IV Medications: Reviewed (No IV meds to switch to PO at this time.Cefazolin 2gm IV Q 8 hours will continue at this time.) Home Meds Home Med List reviewed: Reviewed (Meds on home med list not ordered: Celebrex 200mg BID, Magnesium Glyconate 500mg, fish oil and MVI tab. Per haskneto he does not wish to order these.) Current Meds Current Medication Order Review: Reviewed Pharmacy Antibiotic Review Relevant Labs: Relevant Labs 09/12/25 12:13 C-Reactive Protein 10.24 H Pharmacy Antibiotic Activity: Reviewed, no change
[2025-09-13] MEDS: Normal Saline Flush 10 ML SYR IV (15:28)
[2025-09-13] MEDS: Normal Saline Flush 10 ML SYR IVP (19:43)
[2025-09-13] MEDS: Gabapentin 300 MG CAP PO (20:58)
[2025-09-13] MEDS: amLODIPine 10 MG TAB PO (20:59)
--- NOTE | 2025-09-13 21:14 | PGE_ITS ---
Date of Service Date of service: 09/13/25 Time of Service: 07:20 Assessment and Plan Assessment and plan (1) Infection of prosthetic right knee joint: Status: Acute Assessment and plan: Ravin is a 55-year-old who is postop day #1 status post irrigation debridement of the right knee for suspected infection. Fortunately, at the time of surgery the majority of the pathologic appearing fluid was in the bursal space although directly adjacent to the arthrotomy of the knee. All cultures thus far are negative. Initial cultures growing in [place] showed group B strep. We will continue with cefazolin 2 g every 8 hours. Tomorrow we will transition to ceftriaxone 2 g every 24 hours. I have requested a midline to be placed tomorrow. PICC line placement is accessible due to staffing issues. Appreciate care management and assisting with outpatient IV antibiotic administration. Is still unclear if this will be at home or through infusion center at the local hospital. He may weight-bear as tolerated although or not aggressively pushing range of motion. Resume home meds. Continue with oxycodone 10 mg every 4 hours as needed for pain. Subjective Subjective Interval history since last seen: Ravin reports to be doing well. He has had some persistent pain but it has not gotten uncontrolled. He has been able to mobilize. He occasionally has a spasm about the leg. There is been no growth today on cultures. Exam Narrative Exam Narrative: Resting in the hospital bed. No acute distress. Alert and orient x 3. Right lower extremity dressings clean dry and intact. There is notable swelling at the right leg. He has intact ankle dorsiflexion plantarflexion as well as great toe extension and flexion. He is able to straight leg raise. Range of motion is not tested. Objective Last Vital Signs Temp 36.4 C L 09/13/25 20:36 Pulse 72 09/13/25 20:36 Resp 18 09/13/25 20:36 BP 147/82 H 09/13/25 20:36 Pulse Ox 97 09/13/25 20:36 Laboratory Results - last 24 hr 09/12/25 16:21 Fluid Source Synovial Fluid Color Yellow Fluid Clarity Clear Fluid WBC 106 Fld Polynuclear WBCs % 36 Fluid Mononuclear Cell 64 VTE Prohylaxis Risk Level: Low Risk Contraindications: None Prophylaxis: Mechanical and Patient ambulatory Time Spent with Patient Time Spent with Patient: <25 minutes Time was spent: preparing to see the patient(eg.review tests), indepentently interpreting results, counseling the patient and care coordination
[2025-09-14] MEDS: HYDROmorphone 2 MG/ML SYR 0.5 MG IVP ×3 (00:58→13:59)
[2025-09-14] MEDS: oxyCODONE 10 MG TAB PO ×4 (01:07→20:58)
[2025-09-14 01:30] VITALS: RESP 12
[2025-09-14] MEDS: Ketorolac 15 MG/ML VIAL IVP ×3 (04:40→20:58)
[2025-09-14] MEDS: ceFAZolin 2 GM/50 ML BAG IVPB (06:05)
[2025-09-14 06:15] VITALS: BP 120/73; PULSE 89; RESP 18; TEMP 36.8; O2SAT 95
[2025-09-14 08:03] LABS: HCT 28.2 % (40.0-50.0); MCH 28.9 pg (27.0-33.0); MCHC 33.3 % (32.0-36.0); MCV 87 fL (80-95); MPV 9.1 fL (8.0-11.0); Platelet Count 292 10^3/uL (130-400); RBC 3.25 10^6/uL (4.36-5.78); RDW 13.2 % (11.8-14.1); RDW-SD 42.3 fL; WBC 11.55 10^3/uL (4.4-10.8)
[2025-09-14 08:13] LABS: HGB 9.4 g/dL (13.5-17.5)
[2025-09-14] MEDS: hydroCHLOROthiazide 12.5 MG TAB PO (08:59)
[2025-09-14] MEDS: Pantoprazole 40 MG TABCR PO (08:59)
[2025-09-14] MEDS: Valsartan 80 MG TAB 160 MG PO (08:59)
[2025-09-14] MEDS: Carvedilol 25 MG TAB PO ×2 (08:59→20:13)
[2025-09-14] MEDS: Acetaminophen 500 MG TAB 1000 MG PO ×3 (09:00→20:13)
[2025-09-14] MEDS: Aspirin E.C. 81 MG TABEC PO ×2 (09:00→20:14)
--- NOTE | 2025-09-14 09:14 | PDOC.CMPRO ---
Date of service: 09/14/25 Time of Service: 09:14 Care Management Progress Note Progress Note Text Progress Note Text: Ravin was sitting up in a chair when CM met with him. He was pleasant in interaction and easily engaged with CM. Ravin was hoping to be able to discharge home today, however not everything was ready. He will need IV antibiotics until 09/29/25 and [facility] will be providing the antibiotics. He lives in [place], [place] and the home care agency will be [facility] . CM spoke with them today briefly to alert them of the potential admission. Ravin had a midline inserted today by Torres Allison, CONGRESSIONAL ASSISTANT and student. The report was sent to [facility] late in the day when it was available. CM will follow up with [facility] in the morning to ensure that everything is in place and to determine delivery time. [facility] agency will be contacted to try to schedule a time on Thursday to initiate services and give the first dose. 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 Discharge Potential Discharge Needs: Surgical F/U Appt Anticipated Barriers to Discharge: None Identified Patient/Family Education Needs: Review discharge instructions, discuss Ask Me Three Transportation: Private vehicle Plan: Anticipate Ravin will be discharged home when medically stable. He will need new home health SN through [facility] for home IV antibiotic infusions. He will follow up with his surgeon, PCP and plan of care and transport with family. CM will follow and continue to support discharge planning efforts. Social Determinants of Health Screening Will the Patient Participate in the Screening?: Unable to obtain Do you worry about having a steady place to live?: no Comments: Pt arrived on floor under sedation
[2025-09-14 09:52] LABS: Anion Gap 8.6 mmol/L (3-11); BUN 14 mg/dL (9-23); C-Reactive Protein 4.16 mg/dL (<=0.50); CO2 28.4 mmol/L (20.0-31.0); Calcium 8.3 mg/dL (8.3-10.6); Chloride 102 mmol/L (98-107); Glucose 95 mg/dL (74-106); Potassium 3.7 mmol/L (3.5-5.1); Sodium 139 mmol/L (136-145)
[2025-09-14 11:59] VITALS: BP 129/77; PULSE 68; RESP 18; TEMP 36.6; O2SAT 96
--- NOTE | 2025-09-14 12:15 | W.PM.PROGNOT ---
Date of Service Date of service: 09/14/25 Time of Service: 12:00 Assessment and Plan Assessment and plan (1) Infection of prosthetic right knee joint: Status: Acute Assessment and plan: Ravin is doing well today #2 postop for an I&D of his right total knee replacement. Labs today show no growth at 48 hours. Plan is to get a midline today and likely be discharged tomorrow pending medications are available for him at home and midline is functional for his antibiotic dose tomorrow. Subjective Subjective Interval history since last seen: Ravin is postop day #2 for I&D of his right knee for infected total joint replacement. He is relatively comfortable sitting in a chair. He has been ambulating with physical therapy. He denies any issues with pain control. Denies chest pain, shortness of breath, fevers or chills. He is anxious to be discharged home, however medication delivery at home may not happen until tomorrow so he may have to stay overnight which she is okay with. He also is to get a midline from anesthesia which has not happened at this time. Exam Extrem Other: Brief exam of the right knee today shows that there is no drainage from the incision going through the dressing/Darrin bandage. He is comfortably sitting with the knee extended. Objective Last Vital Signs Temp 97.7 F 09/15/25 07:44 Pulse 58 L 09/15/25 07:44 Resp 16 09/15/25 07:44 BP 149/83 H 09/15/25 07:44 Pulse Ox 95 09/15/25 07:44 Laboratory Results - last 24 hr 09/14/25 06:05 WBC 11.55 H RBC 3.25 L Hgb 9.4 L D Hct 28.2 L MCV 87 MCH 28.9 MCHC 33.3 RDW 13.2 Plt Count 292 MPV 9.1 Objective Narrative Objective Narrative: Microbiology labs showed no growth at 48 hours. VTE Prohylaxis Risk Level: Low Risk Contraindications: None Prophylaxis: Mechanical and Patient ambulatory Time Spent with Patient Time Spent with Patient: <25 minutes Time was spent: preparing to see the patient(eg.review tests), obtaining and/or reviewing separately otained hiistory, indepentently interpreting results and counseling the patient
--- NOTE | 2025-09-14 15:52 | W.ANESVAS ---
Midline Placement Date Performed: 09/14/25 Procedure Time: 15:10 Requesting Provider: Mikel Garcia Procedure Location: Med/Surg Sedation Given (Indicate Dose Given): No Sedation given Patient Mental Status: Awake Sterility: Hand Hygiene, Surgical Mask, Sterile Gloves, Sterile Drape/Sheet and Chlorhexidine Laterality: Left Insertion Site: Basilic Midline Device: PowerGlide Pro 18G Catheter Length: 10 cm Midline Procedure Procedure: 1% Lidocaine to skin and subcutaneous tissue with 25g needle, Vessel accessed with needle and Guidewire removed Dressing: Tegaderm Applied Blood Return: Present Flushes: Easily Ultrasound: Used to juana site Number of Attempts (See previous attempts in note section): 1 Procedure Tolerated: No Complications Procedure Outcome: Successful Performed By: Shruti Pierce Supervised By: Torres Allison
[2025-09-14] MEDS: cefTRIAXone 2 GM/50 ML BAG IVPB (16:12)
[2025-09-14 17:41] VITALS: BP 168/91; PULSE 68; RESP 16; TEMP 37; O2SAT 94
[2025-09-14 19:11] VITALS: BP 158/91; PULSE 66; RESP 16; TEMP 36.7; O2SAT 97
[2025-09-14] MEDS: amLODIPine 10 MG TAB PO (20:13)
[2025-09-14] MEDS: Gabapentin 300 MG CAP PO (20:14)
[2025-09-14 22:50] VITALS: BP 125/71; PULSE 71; RESP 16; TEMP 36.9; O2SAT 97
[2025-09-15] MEDS: oxyCODONE 10 MG TAB PO ×4 (01:00→16:10)
[2025-09-15 01:35] VITALS: PULSE 72; RESP 18; O2SAT 95
[2025-09-15] MEDS: Normal Saline Flush 10 ML SYR IVP ×4 (05:08→16:03)
[2025-09-15] MEDS: Ketorolac 15 MG/ML VIAL IVP ×3 (05:08→16:03)
[2025-09-15 05:30] VITALS: PULSE 70; RESP 12; O2SAT 92
[2025-09-15 07:44] VITALS: BP 149/83; PULSE 58; RESP 16; TEMP 36.5; O2SAT 95
[2025-09-15] MEDS: Pantoprazole 40 MG TABCR PO (08:39)
[2025-09-15] MEDS: hydroCHLOROthiazide 12.5 MG TAB PO (08:39)
[2025-09-15] MEDS: Acetaminophen 500 MG TAB 1000 MG PO ×2 (08:40→14:05)
[2025-09-15] MEDS: Aspirin E.C. 81 MG TABEC PO (08:40)
[2025-09-15] MEDS: Valsartan 80 MG TAB 160 MG PO (08:40)
[2025-09-15] MEDS: Carvedilol 25 MG TAB PO (08:40)
--- NOTE | 2025-09-15 09:05 | PDOC.CMDIS ---
Date of service: 09/15/25 Time of Service: 09:06 LACE Index Scoring Tool Questions: Length of Stay (in days): 3 Was the patient admitted via the E.D.?: No Comorbidities: Chronic Pulmonary Disease E.D. Visits: 0 Answers: Total Score: 5 Risk of Readmission: Low Risk Care Management Discharge Plan Reason for Hospitalization: prosthetic knee infection - right Discharge Plan: Ravin will discharge this afternoon after he has his dose of antibiotics through his midline. The report that he has successfully received his dose will be sent to [facility]. CM confirmed with both [facility] and [facility] that he will have delivery of his DME tonight, and HH will start tomorrow. Ravin will f/u with his PCP and with his orthopedic surgeon and continue per his plan of care. He will transport home in a private vehicle with his . Patient/Family Education Needs: Review of discharge instructions, activity, limitations, and discuss Ask me 3. Services Needed at Discharge: DME Agency ([facility] ) and Home Health Care Services (SN at [facility])
[2025-09-15 11:33] VITALS: BP 128/71; PULSE 63; RESP 16; TEMP 36.7; O2SAT 96
--- NOTE | 2025-09-15 13:15 | W.PM.DS.N ---
Date of service: 09/15/25 Time of Service: 13:16 DS: Diagnosis Discharge Diagnosis (1) Infection of prosthetic right knee joint: Status: Acute Discharge Plan Disposition Patient Disposition: Home W/Home Health Services Home Health Services: New Referral Condition: Improving Discharge Details Reason For Visit: Prosthetic Knee Infection-RIGHT Admit Date/Time: 09/12/25 11:31 Admit Provider: Mikel Garcia Attending Provider: Mikel Garcia Primary Care Provider: Dawit Walton Hospital Course Hospital Course: Ravin was admitted to the medical/surgical floor following his procedure. He underwent irrigation debridement of the prepatellar bursa as well as the right knee joint with polyethylene exchange. He was established on the pain regimen. He received IV antibiotics. Cultures had no growth to date although the preceding cultures were positive for group B strep. He has been able to mobilize. He had no notable complications. Midline IV access was obtained prior to discharge. He will be discharged following his 2pm dose of antibiotics today. Home Meds and New Rx's Prescriptions: New ceftriaxone 2 gram recon soln 2 g IV DAILY Continued amlodipine 10 mg tablet 10 mg PO HS albuterol sulfate [ProAir HFA] 90 mcg/actuation HFA aerosol inhaler 2 puff inhalation Q6H PRN carvedilol 25 mg tablet 25 mg PO BID Rx Instructions: must administer with a meal/food magnesium glycinate 118 mg magnesium capsule 500 mg PO DAILY multivitamin Tablet 1 tab PO DAILY omega 0-lyq-xcs-fish oil [Fish Oil] 60-90-500 mg capsule 1 cap PO DAILY valsartan-hydrochlorothiazide 160-12.5 mg tablet 1 tab PO DAILY acetaminophen 500 mg tablet 1,000 mg PO Q8H PRN (Reason: pain) Qty: 60 3RF celecoxib 200 mg capsule 200 mg PO BID PRN (Reason: pain) Qty: 60 1RF aspirin 81 mg tablet,delayed release (DR/EC) 81 mg PO BID Qty: 60 0RF gabapentin 300 mg capsule 300 mg PO QHS Qty: 30 0RF Changed oxycodone 10 mg tablet 10 mg PO Q4H MDD 2 tabs PRN (Reason: pain) Qty: 30 0RF Discontinued cefadroxil 500 mg capsule 500 mg PO BID Qty: 14 0RF pantoprazole 40 mg tablet,delayed release (DR/EC) 40 mg PO DAILY Qty: 14 0RF Discharge Instructions Instructions: How to care for a midline IV catheter Additional Instructions: Midline Catheter: You have a BARD Powerglide Pro 18 gauge midline catheter that was placed on 09/14/25 at 3:30PM. Home Health will manage infusion and any needed dressing changes. Keep dry when showering (if allowed to do so). Please read educational sheet given that addresses midline catheter. Knee Discharge Instructions Activity: The most important activity is to walk and to work on gentle motion (both flexion and extension). You should try to take short walks a few times a day. It is important that when resting you work on keeping the knee straight but also elevating the leg. Try to keep the foot and ankle higher than the knee to decrease fluid in the leg. Avoid putting a pillow behind the knee as this will encourage flexion. - We may plan to resume outpatient physical therapy in another 2 weeks although for these first 2 weeks it is important that we take it easy. Dressing: You have a vacuum-assisted dressing which is on the wound. This should stay working and last for about 1 week. If at any point the green light stops blinking you may call the office for discussion of next steps. However, if it stops blinking at around 1 week then it would no longer work at that point. You may cut the tubing from the dressing or remove the current dressing in place a Mepilex dressing, supplied from the hospital. The dressing should not get soaked. Many people prefer covering the dressing with cling wrap (saran wrap) to minimize it from getting soaked. If it gets wet, just pat dry. If it starts to peel off then it will need to be changed. Medications: - You should take Tylenol and anti-inflammatory Celebrex as your primary pain control medications. If the Celebrex is too expensive or not covered, please call the office for another alternative (Advil/Ibuprofen or Naproxen/Aleve) - You have been prescribed a stronger pain medication Oxycodone for breakthrough pain, take as needed as prescribed. - You have been prescribed Gabapentin to take at night for restlessness and nerve pain. - You will be taking Aspirin 81mg twice a day for DVT prevention unless instructed otherwise. - If you have constipation you should take Colace or Miralax (both [id number]). It takes most people 3-4 days to have a bowel movement. ANTIBIOTICS - Ceftriaxone 2gram Daily - Consider taking supplemental probiotics or increasing consumption of yogurt to help with gut rowdy loss from the antibiotics. - You will also need weekly labs, which will be arranged for you. Follow-up: 2 weeks If you have any acute concerns or questions, please do not hesitate to contact the office at [phone]. You may contact Dr. Garcia with any questions after hours through the hospital at [phone] or on his cell phone at [phone]. Stand Alone Forms: Portal Information, Nursing Discharge Form Referrals: [facility] [Other, Home Health & Hospice] Referral Note: home health for IV antibiotics Dawit Walton [Primary Care Provider, Medicine] Referral Note: Your PCP will reach out for a follow up, if you do not hear from them, please reach out. Mikel Garcia MD [ [facility] STAFF PHYSICIAN, Orthopaedic Surgical] Referral Note: Referral sent. Activity:: Activity as Tolerated Equipment/Supplies:: No Equipment Needed Diet:: As Tolerated Discharge Orders Discharge Orders: Discharge Order (Routine); Ordered 09/15/25 Ordered By: Oscar Good Discharge Data Discharge Date/Time-TO BE ENTERED AT DEPARTURE: 09/15/25 18:29 DS: Summary Time Spent with Patient providing and/or coordinating discharge services: Less than 30 minutes Status at Discharge Functional status at discharge: uses cane/walker Overall status at discharge: patient is progressing back to baseline Mental Status: mental status grossly normal Speech and Movement: speech and movement normal Mood: congruent mood Affect: normal affect Exam Narrative Exam Narrative: Sitting up in the bed. NAD. AAOx3. RLE Dressing c/d/i. Significant swelling No advancing erythema. SILT SP/DP/Tib. +ADF/APF/EHL/FHL Psych Mental Status: mental status grossly normal Speech and Movement: speech and movement normal Mood: congruent mood Affect: normal affect DS: Data Vitals/I&O Vitals and I&O: Vital Signs Temperature 36.4 C L 09/13/25 20:36 Temperature Source Temporal Artery Scan 09/13/25 20:36 Pulse 72 09/13/25 20:36 Pulse Rhythm Regular 09/12/25 23:45 Pulse 64 09/12/25 18:16 Respiratory Rate 18 09/13/25 20:36 Respiratory Effort Normal, Non-Labored 09/12/25 23:45 Respiratory Depth Normal 09/12/25 23:45 Respiratory Pattern Normal 09/12/25 23:45 Blood Pressure 147/82 H 09/13/25 20:36 Blood Pressure Mean 103 09/13/25 20:36 Blood Pressure Position Supine 09/12/25 15:06 Pulse Oximetry 97 09/13/25 20:36 Respiratory End-tidal CO2 48 09/12/25 18:21 Oxygen Delivery Method Room Air 09/13/25 20:36 Oxygen Flow Rate 0 09/13/25 20:36 Fraction of Inspired Oxygen (FIO2) 21 09/13/25 03:29 Pain Level 6 09/13/25 20:36 Comment Pt asleep at q4 while awake 09/13/25 00:18 Intake & Output 09/12/25 09/13/25 09/13/25 23:59 11:59 23:59 Intake Total 1384 / 1384 50 / 240 190 / 240 Output Total 1475 / 1475 200 / 200 Balance -91 / -91 -150 / 40 190 / 40 Weight 138.2 kg Intake: IV 1384 / 1384 50 / 120 70 / 120 Oral 120 / 120 Output: Urine 1275 / 1275 200 / 200 Estimated Blood Loss 200 / 200 Other: Urine Color Yellow Yellow Yellow Urine Appearance Cloudy Clear Clear Urine Odor Normal Stool Size Large Stool Characteristics Liquid Emesis Description None Data Completed and Pending Pending Labs at Discharge: 09/12/25 09/12/25 12:13 16:21 WBC 10.62 RBC 3.99 L Hgb 11.6 L Hct 34.7 L MCV 87 MCH 29.1 MCHC 33.4 RDW 13.3 Plt Count 290 MPV 9.0 Sodium 137 Potassium 3.8 Chloride 101 Carbon Dioxide 27.6 Anion Gap 8.4 BUN 13 Creatinine 0.71 L Est GFR (CKD-EPI 2020) 114.76 Glucose 111 H Calcium 9.5 Total Bilirubin 0.9 AST 24 ALT 44 Alkaline Phosphatase 97 C-Reactive Protein 10.24 H Total Protein 7.2 Albumin 4.3 Fluid Source Synovial Fluid Color Yellow Fluid Clarity Clear Fluid WBC 106 Fld Polynuclear WBCs % 36 Fluid Mononuclear Cell 64 Path Cons Comment Pending Add-On Test Request DONE ABO/Rh O Negative Antibody Screen NEGATIVE Preliminary micro results at discharge 09/12/25 12:34 Blood Blood Culture - Preliminary NO GROWTH 24 HOURS 09/12/25 12:28 Blood Blood Culture - Preliminary NO GROWTH 24 HOURS 09/12/25 16:21 Knee - Right Surgical Culture - Preliminary 09/12/25 16:21 Knee - Right Surgical Culture - Preliminary 09/12/25 16:21 Knee - Right Surgical Culture - Preliminary 09/12/25 16:21 Knee - Right Surgical Culture - Preliminary 09/12/25 16:21 Knee - Right Surgical Culture - Preliminary 09/12/25 16:21 Knee - Right Surgical Culture - Preliminary 09/12/25 16:21 Knee - Right Anaerobic Culture - Pending 09/12/25 16:21 Knee - Right Anaerobic Culture - Pending 09/12/25 16:21 Knee - Right Anaerobic Culture - Pending 09/12/25 16:21 Knee - Right Anaerobic Culture - Pending 09/12/25 16:21 Knee - Right Anaerobic Culture - Pending 09/12/25 16:21 Knee - Right Anaerobic Culture - Pending [facility] All Active Problems (Updated 09/16/25 @ 00:01 by SANDY DUDLEY) Infection of prosthetic right knee joint (Acute ~01/17/21) S/P I&D with polyexchange: 01/20/2021 History of total left knee replacement (Acute 11/14/20) Hypertension (Chronic) Medical History PONV (postoperative nausea and vomiting) Asthma History of postoperative nausea and vomiting Acid reflux Hypertension SLAP tear of shoulder Obstructive sleep apnea CPAP Asthma Migraine Surgical History S/P correction of deviated nasal septum Status post total right knee replacement (12/26/20) Hx of shoulder surgery Tear of UCL of left elbow Kristofer Navin surgery ~2002 Tear of UCL of right elbow Kristofer Navin surgery November 1997 History of toe surgery Right great toe tendon repair 1994 S/P tonsillectomy Status post hernia repair Umbilical hernia Status post arthroscopy of left shoulder Left SLAP tear H/O arthroscopic knee surgery Left ACL reconstruction with patellar BTB 1998 lateral release 2000 arthroscopy 2002 S/P reconstruction of anterior cruciate ligament Left Social History Smoking/Tobacco Use Status: Never Smoking risk assessment performed?: Yes Alcohol Intake: never Drug use: Never Substance use type: does not use Housing: house Additional [facility] Health Referral Home Health Orders Clinical synopsis of why skilled professionals are needed: IV abx administration. Medical diagnosis necessitation home health referral: Infection R TKR S/P I&D Registered Nurse: Check all that apply IV therapy, consisting of: abx through a midline Assess wound for signs and symptoms of infection, instruct on wound care and/or provide skilled wound care consisting of: ESEQUIEL dressing management Physical Therapist: Check all that apply Increase strength & endurance for safe mobility at home: Ordered Encounter Date and Reason: I certify that a FTF encounter for this patient was performed on September 15, 2025 and that such encounter was related to the primary reason the patient requires home health services. The encounter was conducted in the following manner: By me as the certifying physician, JOB PUTTER UP AND TICKET PREPARER, PA or By an inpatient physician, JOB PUTTER UP AND TICKET PREPARER or PA during an inpatient stay who communicated findings to me, Certification And Authentication I certify that I composed the above information based on my clinical judgment relating to this patient's medical condition and, if applicable, clinical findings communicated to me by the NPP or inpatient physician who performed the FTF encounter. Name of Provider that will be monitoring home health services: Mikel Garcia Time Spent with Patient Time Spent with Patient: <45 minutes Time was spent: preparing to see the patient(eg.review tests), obtaining and/or reviewing separately otained hiistory, referring, communicating with other health home care consultant, counseling the patient and care coordination
[2025-09-15] MEDS: cefTRIAXone 2 GM/50 ML BAG IVPB (14:05)
== END 2025-09-15 18:29 | disposition home health service (06) | DRG 487 ==
LOC: PDS 18:54 → MS 09-13 07:38
PROVIDERS: Admitting Provider Student in an Organized Health Care Education/Training Program; PCP Physician Assistant; Visit Provider Student in an Organized Health Care Education/Training Program
PROC: 0MTN0ZZ Resection of Right Knee Bursa and Ligament, Open Approach (ICD-10-PCS; CPT 27486; principal; 2025-09-12 15:30)
DX: T84.53XA Infection and inflammatory reaction due to internal right knee prosthesis, initial encounter (principal); M71.161 Other infective bursitis, right knee; G89.18 Other acute postprocedural pain; B95.1 Streptococcus, group B, as the cause of diseases classified elsewhere; Z96.653 Presence of artificial knee joint, bilateral; I10 Essential (primary) hypertension; J45.909 Unspecified asthma, uncomplicated; K21.9 Gastro-esophageal reflux disease without esophagitis; G47.33 Obstructive sleep apnea (adult) (pediatric); G43.909 Migraine, unspecified, not intractable, without status migrainosus
CPT/HCPCS: 27486; 27340; 36410; 36415; 64447; 80048; 80053; 85027; 86850; 86900; 86901; 87040; 86140; 87070; 87075; 87205; 89051; 94660; 94760; C1776; J0665; J0666; J0690; J0696; J1100; J1171; J1885; J2250; J2401; J2405; J2704